=== PATIENT | male | born 1960 | race Caucasian/White ===

== ENCOUNTER 2016-04-18 14:12 | Emergency (ER) | payer MEDICARE, OTHER ==
--- NOTE | 2016-04-18 14:22 | ER Document Report ---
ED Medical Screen (RME) - General Stated Complaint: R WRIST PAIN Time seen by provider: 14:19 Mode of Arrival: Ambulatory Information source: Patient Notes: 55-year-old male presents to ED for pain in his right wrist. He states there is nothing wrong with it yesterday by evening it started swelling, pain increased, and now he cannot make a fist with of his right hand. I have greeted and performed a rapid initial assessment of this patient. A comprehensive ED assessment and evaluation of the patient, analysis of test results and completion of medical decision making process will be conducted by an additional ED providers. TRAVEL OUTSIDE OF THE [place] IN LAST 30 DAYS: No - Related Data Allergies/Adverse Reactions: ceftriaxone [From Rocephin] Allergy (Verified 04/18/16 14:19) Past Medical History - Past Medical History Cardiac Medical History: Denies: Hx Coronary Artery Disease, Hx Hypertension Renal/ Medical History: Reports: Hx Kidney Stones GI Medical History: Reports: Hx Diverticulitis Musculoskeltal Medical History: Reports Hx Arthritis, Reports Hx Musculoskeletal Deformity, Reports Hx Musculoskeletal Trauma Psychiatric Medical History: Reports: Hx Depression Traumatic Medical History: Reports: Hx Fractures Past Surgical History: Reports: Hx Bowel Surgery, Hx Cholecystectomy, Hx Neurologic Surgery - Neck 2, Hx Orthopedic Surgery - shoulder, knee, carpal tunnel, Hx Testicular Surgery - Wire for varicoceles, Hx Tonsillectomy, Other - Removed melanoma tumors from back and lymph nodes, ventral hernia repair an - Immunizations Hx Diphtheria, Pertussis, Tetanus Vaccination: Yes - unknown Physical Exam - Vital signs Vitals: Temp Pulse Resp BP Pulse Ox 97.9 F 59 L 16 156/91 H 97 04/18/16 14:18 04/18/16 14:18 04/18/16 14:18 04/18/16 14:18 04/18/16 14:18 Course - Vital Signs Vital signs: Temp Pulse Resp BP Pulse Ox 97.9 F 59 L 16 156/91 H 97 04/18/16 14:18 04/18/16 14:18 04/18/16 14:18 04/18/16 14:18 04/18/16 14:18
[2016-04-18] MEDS ORDERED: IBUPROFEN 800 MG TABLET PO ONE (14:23)
--- NOTE | 2016-04-18 15:13 | ER Document Report ---
ED Hand/Wrist Injury - General Chief Complaint: Wrist Pain Stated Complaint: R WRIST PAIN Time seen by provider: 15:06 Mode of Arrival: Ambulatory Notes: This is a [id number] 55-year-old male with a history of melanoma that presents today with right wrist pain. He stated that it. Started at 2200 last night woke him up out of sleep. Denies any prior injury. Pain is sharp constant 7 out of 10 pain worse with any movement. Patient states that when he makes a fist, he will feel moderate amount of pain to the index and middle fingers that extends to the PIP joint. He denies nausea vomiting fever or chills abdominal or chest pain. Last chemotherapy treatment was 11 months ago. He states that his melanoma is in remission. Primary care physician is Dr. Thao. TRAVEL OUTSIDE OF THE [place] IN LAST 30 DAYS: No - Related Data Allergies/Adverse Reactions: ceftriaxone [From Rocephin] Allergy (Verified 04/18/16 14:19) Past Medical History - General Information source: Patient - Social History Smoking Status: Never Smoker Chew tobacco use (# tins/day): No Frequency of alcohol use: None Drug Abuse: None Family History: Reviewed & Not Pertinent Patient has suicidal ideation: No Patient has homicidal ideation: No - Past Medical History Cardiac Medical History: Denies: Hx Coronary Artery Disease, Hx Hypertension Renal/ Medical History: Reports: Hx Kidney Stones. Denies: Hx Peritoneal Dialysis GI Medical History: Reports: Hx Diverticulitis Musculoskeltal Medical History: Reports Hx Arthritis, Reports Hx Musculoskeletal Deformity, Reports Hx Musculoskeletal Trauma Psychiatric Medical History: Reports: Hx Depression Traumatic Medical History: Reports: Hx Fractures Past Surgical History: Reports: Hx Bowel Surgery, Hx Cholecystectomy, Hx Neurologic Surgery - Neck 2, Hx Orthopedic Surgery - shoulder, knee, carpal tunnel, Hx Testicular Surgery - Wire for varicoceles, Hx Tonsillectomy, Other - Removed melanoma tumors from back and lymph nodes, ventral hernia repair an - Immunizations Hx Diphtheria, Pertussis, Tetanus Vaccination: Yes - unknown Review of Systems - Review of Systems Constitutional: denies: Chills, Fever EENT: No symptoms reported Cardiovascular: No symptoms reported. denies: Chest pain Respiratory: No symptoms reported Gastrointestinal: No symptoms reported Genitourinary: No symptoms reported Male Genitourinary: No symptoms reported Musculoskeletal: See HPI Skin: No symptoms reported Hematologic/Lymphatic: No symptoms reported Neurological/Psychological: No symptoms reported Physical Exam - Vital signs Vitals: Temp Pulse Resp BP Pulse Ox 97.9 F 59 L 16 156/91 H 97 04/18/16 14:18 04/18/16 14:18 04/18/16 14:18 04/18/16 14:18 04/18/16 14:18 - General General appearance: Appears well, Alert In distress: None - HEENT Head: Normocephalic, Atraumatic Eyes: Normal Conjunctiva: Normal - Respiratory Respiratory status: No respiratory distress Breath sounds: Normal. No: Rales, Rhonchi, Stridor, Wheezing - Cardiovascular Rhythm: Regular Heart sounds: Normal auscultation - Abdominal Inspection: Normal Distension: No distension Bowel sounds: Normal Tenderness: Nontender - Back Back: Normal. No: CVA tenderness - Extremities General upper extremity: Normal inspection, Tender - Tender right dorsal wrist radial side to moderate palpation. Patient can extend the wrist with pain and flex wrist. Limited ulnar deviation. Normal skin color no swelling noted to the wrist. General lower extremity: Normal inspection - Neurological Cognition: Normal. No: Confused - Psychological Associated symptoms: Normal affect, Normal mood - Skin Skin Temperature: Warm Skin Moisture: Dry Skin Color: Normal Course - Re-evaluation Re-evalutation: 04/18/16 15:58 Patient's right arm was splinted doing a volar wrist splint. I examined the splint after application. Patient has normal capillary refill normal sensation in all digits. Patient had normal radial pulse bilaterally. Patient's imaging results were shared with the patient. He was given multiple opportunities to ask questions. He was advised to follow-up with orthopedics and primary care physician. - Vital Signs Vital signs: Temp Pulse Resp BP Pulse Ox 98 F 64 16 148/88 H 98 04/18/16 15:59 04/18/16 15:59 04/18/16 15:59 04/18/16 15:59 04/18/16 15:59 Procedures - Immobilization Right Volar Wrist Time completed: 00:15 Pre-Proc Neuro Vasc Exam: Normal Immobilizer type: Volar splint Performed by: PCT Post-Proc Neuro Vasc Exam: Normal Alignment checked and good: Yes Discharge - Discharge Clinical Impression: Wrist pain, acute Qualifiers: Laterality: right Qualified Code(s): M25.531 - Pain in right wrist Condition: Stable Disposition: HOME, SELF-CARE Additional Instructions: Return to the emergency department if symptoms worsen such as loss of sensation , loss of pulses, increased swelling, loss of motor function, fever, redness, etc. Follow-up with primary care physician as soon as possible. Prescriptions: Meloxicam 7.5 mg PO ONCE PRN #5 tablet PRN Reason: Referrals: [facility] [Provider Group] - Follow up as needed
[2016-04-18 15:59] VITALS: BP 148/88
== END 2016-04-18 15:59 | disposition home or self-care (01) ==
LOC: ER 14:12
PROC: 2W3CX1Z Immobilization of Right Lower Arm using Splint (ICD-10-PCS; principal; 2016-04-18)
DX: M25.531 Pain in right wrist (principal)
CPT/HCPCS: 99283; 73110; 29125; A9270

== ENCOUNTER → 2016-04-24 | Outpatient (CLI) | payer MEDICARE, OTHER | LOC: RAD 07:48 | PROVIDERS: ATTEND Orthopaedic Surgery | DX: M25.531 Pain in right wrist (principal) ==

== ENCOUNTER → 2016-05-02 | Outpatient (CLI) | payer MEDICARE, OTHER | LOC: RAD 08:06 | PROVIDERS: ATTEND Urology | DX: N20.1 Calculus of ureter (principal) | CPT/HCPCS: 76770 ==

== ENCOUNTER → 2016-06-14 | Outpatient (CLI) | payer MEDICARE, OTHER | LOC: RAD 14:25 | PROVIDERS: ATTEND Internal Medicine Medical Oncology | DX: C79.9 Secondary malignant neoplasm of unspecified site (principal) | CPT/HCPCS: 78816; A9552 ==

== ENCOUNTER → 2016-07-03 | Outpatient (CLI) | payer MEDICARE, OTHER | LOC: RAD 06:59 | PROVIDERS: ATTEND Internal Medicine Medical Oncology | DX: R94.8 Abnormal results of function studies of other organs and systems (principal) | CPT/HCPCS: 73720; A9576 ==

== ENCOUNTER → 2016-11-20 | Outpatient (CLI) | payer MEDICARE ==
--- NOTE | 2016-11-20 09:32 | RADIOLOGY REPORT (SQ) ---
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 CONTRAST TYPE AND DOSE: contrast/concentration: Isovue 370.00 mg/ml; Total Contrast Delivered: 100.0 ml; Total Saline Delivered: 72.0 ml RENAL FUNCTION: Creatinine 1.2 TECHNIQUE: CT scan of the chest performed using helical scanning technique with dynamic intravenous contrast injection. Images reviewed with lung, soft tissue and bone windows. Reconstructed coronal a nd sagittal MPR images reviewed. All images stored on PACS. CT scan of the abdomen and pelvis performed with intravenous and with oral contrastusing helical scan ami technique with dynamic intravenous contrast injection. Images reviewed with lung, soft tissue a nd bone windows. Reconstructed coronal and sagittal MPR images reviewed. Delayed images for evaluat ion of the urinary system also acquired and evaluated. All images stored on PACS. All CT scanners at this facility use dose modulation, iterative reconstruction, and/or weight based d osing when appropriate to reduce radiation dose to as low as reasonably achievable (ALARA). [facility]: Dose Right [facility]: CareDose [facility]: Dose Right [facility]: Teradose 4D [facility]: [employer] RADIATION DOSE: Up-to-date CT equipment and radiation dose reduction techniques were employed. CTDIv ol: 12.7 - 16.7 mGy. DLP: 4297 mGy-cm. . LIMITATIONS: None. FINDINGS: CHEST: LUNGS AND PLEURA: No opacities, nodules, masses. No pneumothorax. No effusions. Benign calcified gr anuloma right posterior costophrenic sulcus axial image 109. HILAR AND MEDIASTINAL STRUCTURES: No identified masses or abnormal nodes. HEART AND VASCULAR STRUCTURES: No aneurysm or dissection. No central pulmonary emboli. No pericardi al effusion. HARDWARE: Left-sided permanent central line tip superior vena cava THYROID AND OTHER SOFT TISSUES: No masses. No adenopathy. BONES: No significant finding. OTHER: No other significant finding. ABDOMEN AND PELVIS: LIVER: Normal size. No masses. No dilated ducts. SPLEEN: Normal size. No focal lesions. PANCREAS: No masses. No significant calcifications. No adjacent inflammation or peripancreatic fluid collections. Pancreatic duct not dilated. GALLBLADDER: Surgically absent ADRENAL GLANDS: No significant masses or asymmetry. RIGHT KIDNEY AND URETER: No solid masses. No significant calcification. No hydronephrosis or hydroure ter. LEFT KIDNEY AND URETER: No solid masses. No significant calcification. No hydronephrosis or hydrouret er. AORTA AND VESSELS: No aneurysm. No dissection. Renal arteries, SMA, celiac without stenosis. RETROPERITONEUM: No retroperitoneal adenopathy, hemorrhage or masses. Bilateral gonadal vein emboliz ation coils unchanged BOWEL AND PERITONEAL CAVITY: No masses or inflammatory changes. No free fluid or peritoneal masses. Anastomotic dharmesh post partial sigmoid colectomy. APPENDIX: Normal. ABDOMINAL WALL: No masses. No hernias. BONES: No significant or acute findings. PELVIS: No other significant finding. IMPRESSION: No CT evidence of metastatic melanoma over the chest abdomen or pelvis TECHNICAL DOCUMENTATION: JOB ID: [id number] Quality ID # [id number]: Final reports with documentation of one or more dose reduction techniques (e.g., Au tomated exposure control, adjustment of the mA and/or kV according to patient size, use of iterative reconstruction technique) 2010 [employer]- All Rights Reserved
== END ==
LOC: RAD 07:23
PROVIDERS: ATTEND Internal Medicine Medical Oncology
DX: C79.9 Secondary malignant neoplasm of unspecified site (principal); C49.9 Malignant neoplasm of connective and soft tissue, unspecified; C43.59 Malignant melanoma of other part of trunk
CPT/HCPCS: 71260; 74177; 82565

== ENCOUNTER → 2017-01-23 | Outpatient (CLI) | payer MEDICARE, OTHER ==
--- NOTE | 2017-01-23 14:57 | RADIOLOGY REPORT (SQ) ---
EXAM DESCRIPTION: CT CHEST WITH COMPLETED DATE/TIME: 01/23/2017 2:22 pm REASON FOR STUDY: METASTATIC MELANOMA/CHEST PAIN OF UNCERTAIN ETIOLOGY R07.89 OTHER CHEST PAIN C79. 9 SECONDARY MALIGNANT NEOPLASM OF UNSPECIFIED SITE COMPARISON: 11/20/2016 TECHNIQUE: CT scan of the chest performed using helical scanning technique with dynamic intravenous contrast injection. Images reviewed with lung, soft tissue and bone windows. Reconstructed coronal and sagittal MPR images reviewed. All images stored on PACS. All CT scanners at this facility use dose modulation, iterative reconstruction, and/or weight based d osing when appropriate to reduce radiation dose to as low as reasonably achievable (ALARA). [facility]: Dose Right [facility]: CareDose [facility]: Dose Right [facility]: Teradose 4D [facility]: [employer] CONTRAST TYPE AND DOSE: contrast/concentration: Isovue 370.00 mg/ml; Total Contrast Delivered: 80.0 ml; Total Saline Delivered: 55.0 ml RENAL FUNCTION: Creatinine 1.2 BUN 23 RADIATION DOSE: Up-to-date CT equipment and radiation dose reduction techniques were employed. CTDIv ol: 16.0 mGy. DLP: 591 mGy-cm. . LIMITATIONS: None. FINDINGS: LUNGS AND PLEURA: There is small calcified granuloma in the right posterior costophrenic s ulcus on image 97. No pulmonary nodules are seen otherwise. There is no effusion. There is no infi ltrate. HILAR AND MEDIASTINAL STRUCTURES: No identified masses or abnormal nodes. HEART AND VASCULAR STRUCTURES: No aneurysm or dissection. No central pulmonary emboli. No pericardi al effusion. HARDWARE: None in the chest. UPPER ABDOMEN: The liver is somewhat low in density. THYROID AND OTHER SOFT TISSUES: No masses. No adenopathy. BONES: No osseous lesions are seen. OTHER: No other significant finding. IMPRESSION: There is no evidence of pulmonary/thoracic metastases. No acute disease is seen in the chest. There is appearance of fatty infiltration of liver. TECHNICAL DOCUMENTATION: JOB ID: [id number] Quality ID # [id number]: Final reports with documentation of one or more dose reduction techniques (e.g., Au tomated exposure control, adjustment of the mA and/or kV according to patient size, use of iterative reconstruction technique) 2010 [employer]- All Rights Reserved
== END ==
LOC: RAD 13:25
PROVIDERS: ATTEND Internal Medicine Medical Oncology
DX: C79.9 Secondary malignant neoplasm of unspecified site (principal); R07.89 Other chest pain
CPT/HCPCS: 71260

== ENCOUNTER → 2017-02-13 | Outpatient (CLI) | payer MEDICARE, OTHER ==
--- NOTE | 2017-02-13 10:41 | RADIOLOGY REPORT (SQ) ---
EXAM DESCRIPTION: MRI THORACIC SPINE COMBO COMPLETED DATE/TIME: 02/13/2017 10:13 am REASON FOR STUDY: DORSALGIA (M54.9) M54.9 DORSALGIA, UNSPECIFIED COMPARISON: CT chest 01/23/2017, 11/20/2016 PET-CT 06/14/2016 TECHNIQUE: Sagittal and Axial imaging includes T1, T2, STIR and gradient echo sequences. T1 post ga dolinium sequences. CONTRAST TYPE AND DOSE: 20 mL Multihance. RENAL FUNCTION: GFR > 60. LIMITATIONS: None. FINDINGS: LOCALIZER: No worrisome findings. ALIGNMENT: Normal. VERTEBRAE: Intact. No compression deformities. BONE MARROW: Normal. No marrow replacement or reactive changes. No abnormal marrow enhancement. HARDWARE: None in the spine. CORD: Normal in size and signal intensity. SOFT TISSUES: No soft tissue masses. THORACIC DISCS T1-T12: No significant spinal stenosis or exit foraminal stenosis. There is diffuse d ecreased T2 weighted intervertebral disc signal, with mild diffuse disc space loss of height. Mild m ultilevel facet arthropathy. LOWER CERVICAL: Incompletely imaged. No significant spinal stenosis or exit foraminal stenosis. UPPER LUMBAR: Incompletely imaged. No significant spinal stenosis or exit foraminal stenosis. ENHANCEMENT: No abnormal thoracic cord or thoracic nerve root enhancement. No abnormal vertebral bod y enhancement. OTHER: No other significant finding. IMPRESSION: No thoracic compression deformity. No abnormal marrow signal or enhancement. No abnormal thoracic cord or thoracic nerve root enhanceme nt. Mild multilevel disc space loss of height and mild diffuse facet arthropathy in the thoracic spine TECHNICAL DOCUMENTATION: JOB ID: [id number] [employer]- All Rights Reserved
== END ==
LOC: RAD 07:24
PROVIDERS: ATTEND Internal Medicine Medical Oncology
DX: M54.9 Dorsalgia, unspecified (principal)
CPT/HCPCS: 82565; 72157; A9577

== ENCOUNTER → 2017-02-18 | Outpatient (CLI) | payer MEDICARE, OTHER ==
--- NOTE | 2017-02-19 09:43 | RADIOLOGY REPORT (SQ) ---
EXAM DESCRIPTION: PET CT whole body COMPLETED DATE/TIME: 02/18/2017 8:59 pm REASON FOR STUDY: MELANOMA C79.9 SECONDARY MALIGNANT NEOPLASM OF UNSPECIFIED SITE COMPARISON: Prior PET-CT exams 06/14/2016, 01/28/2016, 07/09/2015, 03/26/2015 CT chest 01/23/2017 CT chest abdomen pelvis 11/20/2016 Set bold go RADIONUCLIDE AND DOSE: 11.3 mCi F18 FDG The route of agent administration: Intravenous FASTING BLOOD SUGAR: 101 mg/dl CONTRAST TYPE AND DOSE: No CT contrast given. TECHNIQUE: Blood glucose level was verified. Above dose of FDG was injected intravenously. 2-D seg mented attenuation correction images were obtained of the whole-body. Noncontrast CT images were obt ained for attenuation correction and fusion with emission images. CT images were performed without o ral or intravenous contrast and are not sensitive for parenchymal lesions. A series of overlapping e mission PET images were obtained. Images reviewed and manipulated at independent work station by the radiologist. Images stored on PACS. LIMITATIONS: None. FINDINGS: HEAD AND NECK: No areas of abnormal metabolic activity in the soft tissues of the head and neck. CHEST: No areas of abnormal metabolic activity in the chest. ABDOMEN AND PELVIS: No areas of abnormal metabolic activity in the abdomen or pelvis. Expected physi ologic activity is present in the genitourinary system and bowel. LOWER EXTREMITIES: No areas of abnormal metabolic activity in the soft tissues of the lower extremiti es. BONES: No abnormal metabolic activity in the visualized skeleton. ADDITIONAL CT FINDINGS: Left central line tip superior vena cava. Post cholecystectomy and partial s igmoid colectomy. Retroperitoneal embolization coils from gonadal vein embolization. OTHER: Liver background activity 1.9 SUV. Blood pool background activity 1.8 SUV. IMPRESSION: No hypermetabolic lesions worrisome for recurrent or metastatic melanoma, whole-body PET -CT TECHNICAL DOCUMENTATION: JOB ID: [id number] [employer]- All Rights Reserved
== END ==
LOC: WI 16:36
PROVIDERS: ATTEND Internal Medicine Medical Oncology
DX: C79.9 Secondary malignant neoplasm of unspecified site (principal)
CPT/HCPCS: 78815; A9552

== ENCOUNTER 2017-04-28 18:13 | Emergency (ER) | payer MEDICARE, OTHER ==
[2017-04-28] MEDS ORDERED: NORMAL SALINE 1000 ML 1,000 ML IV ONE (19:33)
[2017-04-28] MEDS ORDERED: ONDANSETRON HCL INJ/PF 4 MG/2 ML SDV IV ONE (19:33)
[2017-04-28] MEDS ORDERED: KETOROLAC TROMETHAMINE INJ/PF 30 MG/1 ML SDV IV ONE (19:33)
[2017-04-28 19:39] LABS: AMORPHOUS SEDIMENT,URINE TRACE /HPF; APPEARANCE,URINE SLIGHTLY-CLOUDY; BILIRUBIN,URINE NEGATIVE (NEGATIVE); COLOR,URINE YELLOW; GLUCOSE, URINE NEGATIVE (NEGATIVE); KETONES,URINE NEGATIVE (NEGATIVE); LEUKOCYTE ESTERASE,URINE NEGATIVE (NEGATIVE); NITRITE,URINE NEGATIVE (NEGATIVE); PROTEIN,URINE NEGATIVE (NEGATIVE); UROBILINOGEN,URINE NEGATIVE mg/dL (<2.0)
--- NOTE | 2017-04-28 19:43 | ER Document Report ---
ED GI/ - General Chief Complaint: Back Pain Stated Complaint: BACK PAIN Time Seen by Provider: 04/28/17 19:20 Mode of Arrival: Ambulatory Information source: Patient Notes: 56-year-old male presents to ED for complaint of right flank pain TRAVEL OUTSIDE OF THE U.S. IN LAST 30 DAYS: No - HPI Patient complains to provider of: Flank pain, Vomiting Timing/Duration: Gradual, Worse Quality of pain: Sharp, Throbbing Severity at maximum: Severe Severity in ED: Severe Pain Level: 5 Location: Right flank Associated symptoms: Nausea, Vomiting, Other - right flank pain Exacerbated by: Movement, Walking Relieved by: Denies Similar symptoms previously: Yes Recently seen / treated by doctor: No - Related Data Allergies/Adverse Reactions: ceftriaxone [From Rocephin] Allergy (Verified 04/28/17 18:17) Past Medical History - General Information source: Patient - Social History Smoking Status: Former Smoker Cigarette use (# per day): No Chew tobacco use (# tins/day): No Smoking Education Provided: No Frequency of alcohol use: Occasional Drug Abuse: None Occupation: disabled Lives with: Family Family History: Reviewed & Not Pertinent, Arthritis Patient has suicidal ideation: No Patient has homicidal ideation: No - Past Medical History Cardiac Medical History: Reports: None Pulmonary Medical History: Reports: None EENT Medical History: Reports: None Neurological Medical History: Reports: None Endocrine Medical History: Reports: None Renal/ Medical History: Reports: Hx Kidney Stones Malignancy Medical History: Reports Other - Melanoma GI Medical History: Reports: Hx Diverticulitis, Hx Gastroesophageal Reflux Disease, Hx Colonoscopy Musculoskeltal Medical History: Reports Hx Arthritis, Reports Hx Musculoskeletal Deformity, Reports Hx Musculoskeletal Trauma Skin Medical History: Reports None Psychiatric Medical History: Reports: Hx Anxiety, Hx Depression Traumatic Medical History: Reports: Hx Fractures, Hx Traumatic Brain Injury Infectious Medical History: Reports: None Past Surgical History: Reports: Hx Adenoidectomy, Hx Bowel Surgery, Hx Cholecystectomy, Hx Neurologic Surgery - Neck 2, Hx Oral Surgery - Dental surgery, Hx Orthopedic Surgery - shoulder, knee, carpal tunnel, Hx Testicular Surgery - Wire for varicoceles, Hx Tonsillectomy, Other - Removed melanoma tumors from back and lymph nodes, ventral hernia repair an - Immunizations Hx Diphtheria, Pertussis, Tetanus Vaccination: Yes - unknown Review of Systems - Review of Systems Constitutional: No symptoms reported EENT: No symptoms reported Cardiovascular: No symptoms reported Respiratory: No symptoms reported Gastrointestinal: Nausea, Vomiting Genitourinary: Flank pain Male Genitourinary: No symptoms reported Musculoskeletal: No symptoms reported Skin: No symptoms reported Hematologic/Lymphatic: No symptoms reported Neurological/Psychological: No symptoms reported -: Yes All other systems reviewed and negative Physical Exam - Vital signs Vitals: Temp Pulse Resp BP Pulse Ox 98.2 F 64 16 184/91 H 100 04/28/17 18:18 04/28/17 18:18 04/28/17 18:18 04/28/17 18:18 04/28/17 18:18 Interpretation: Normal - General General appearance: Appears well, Alert - HEENT Head: Normocephalic, Atraumatic Eyes: Normal Pupils: PERRL - Respiratory Respiratory status: No respiratory distress Chest status: Nontender Breath sounds: Normal Chest palpation: Normal - Cardiovascular Rhythm: Regular Heart sounds: Normal auscultation Murmur: No - Abdominal Inspection: Normal Distension: No distension Bowel sounds: Normal Tenderness: Tender - Right flank Organomegaly: No organomegaly - Back Back: Normal, Tender, CVA tenderness - Right, Scars - Right back. No: Deformity /step-off, Vertebra tenderness, Scoliosis, Wounds - Extremities General upper extremity: Normal inspection, Nontender, Normal color, Normal ROM , Normal temperature General lower extremity: Normal inspection, Nontender, Normal color, Normal ROM , Normal temperature, Normal weight bearing. No: Delores's sign - Neurological Neuro grossly intact: Yes Cognition: Normal Orientation: AAOx4 Hema Coma Scale Eye Opening: Spontaneous Glen Coma Scale Verbal: Oriented Hema Coma Scale Motor: Obeys Commands Glen Coma Scale Total: 15 Speech: Normal Motor strength normal: LUE, RUE, LLE, RLE Sensory: Normal - Psychological Associated symptoms: Normal affect, Normal mood - Skin Skin Temperature: Warm Skin Moisture: Dry Skin Color: Normal Course - Re-evaluation Re-evalutation: 04/29/17 03:11 Patient was treated with Toradol Zofran IV fluids and Flomax for his kidney stone. His CT showed a 2 mm kidney stone. Urine was positive for blood. Patient was discharged home with a Biba dispense pack for his pain as well as a prescription for the Zofran and Flomax. Patient to follow-up with his primary doctor and a urologist if he continues to have kidney stones or if the stone does not pass. - Vital Signs Vital signs: Temp Pulse Resp BP Pulse Ox 98.3 F 62 16 140/76 H 100 04/28/17 22:00 04/28/17 22:00 04/28/17 22:00 04/28/17 22:00 04/28/17 22:00 - Laboratory Laboratory results interpreted by me: 04/28/17 19:10 Urine Blood LARGE H - Diagnostic Test Radiology reviewed: Image reviewed, Reports reviewed Discharge - Discharge Clinical Impression: Right ureteral stone Condition: Stable Disposition: HOME, SELF-CARE Additional Instructions: KIDNEY STONE: You are passing or have passed a kidney stone. These stones are usually due to increased calcium or uric acid concentrations in your urine. Stones within the kidney itself are not painful. The pain occurs as the stone leaves the kidney to pass down the long tube, called the ureter, leading to the bladder. If the stone is small, it will usually pass by itself. Most patients can pass the stone at home. You will usually receive medications for pain, nausea or vomiting, and sometimes a medication to assist in passing the kidney stone. However, if the pain is very severe or if vomiting prevents you from taking oral pain medications, you may need to return for further treatment. Drink three or four quarts of fluids per day. You will be given pain medication (if needed) and urine strainers. Strain all your urine to see if the stone passes. If your doctor has asked you to bring the stone in for analysis, return with the stone once it has passed. Return if pain or vomiting become severe, if you develop a high fever, if you are unable to pass your urine, or if other unusual symptoms occur. TORADOL INJECTION: You have been given an injection of ketorolac tromethamine (Toradol). This is an excellent, safe drug for pain control. It also has potent antiinflammatory action. You should have significant pain relief within about one hour. Toradol is not addicting and is non-sedating. It does not interfere with driving or work. Call or return if you develop itching, hives, shortness of breath, or rash. ANTINAUSEA MEDICATION: You have been given a medication to suppress nausea and vomiting. This type of medication can be given as a shot, pill, or suppository. It will usually last for many hours. Pills and shots usually last six to eight hours, suppositories last about 12 hours. For the typical illness, only one or two doses of the medication may be necessary. Mild lightheadedness may occur. This type of medicine can cause drowsiness. Do not drive or operate dangerous machinery while under its influence. Do not mix with alcohol. See your doctor at once if you have muscle spasms or tightness, or uncontrollable motions (particularly of the neck, mouth, or jaw). Persistent vomiting or severe lightheadedness should also be evaluated by the physician. ORAL NARCOTIC MEDICATION: You have been given a prescription for pain control. This medication is a narcotic. It's best taken with food, as nausea can result if taken on an empty stomach. Don't operate machinery or drive within six hours of taking this medication. Do not combine this medicine with alcohol, or with any medication which can cause sedation (such as cold tablets or sleeping pills) unless you get permission from the physician. Narcotics tend to cause constipation. If possible, drink plenty of fluids and eat a diet high in fiber and fruits. Please be aware that prescription narcotics also have the potential for abuse. People become addicted to these medications because of the general sense of wellbeing that they induce. This feeling along with a significant reduction in tension, anxiety, and aggression provides a stimulating seductive quality to these drugs. Once your pain is under control, we encourage you to discard your unused narcotics. FLOMAX (tamsulosin): Flomax is a medicine that shrinks the prostate gland. It helps relieve symptoms of benign prostatic hypertrophy, such as frequent urination, weak stream, and inadequate emptying. It has been shown to dilate the ureter (tube leading from the kidney to the bladder) and help in passing kidney stones Flomax usually causes no side effects. You may notice slight tiredness and dizziness for a few days. Some patients develop nasal congestion. Rarely, impotence can occur. If the symptoms are bothersome and don't improve with continued use, call your doctor. Contact your doctor or return if you have fainting spells, severe weakness or dizziness, shortness of breath, or rash. FOLLOW-UP CARE: If you have been referred to a physician for follow-up care, call the physician s office for an appointment as you were instructed or within the next two days. If you experience worsening or a significant change in your symptoms, notify the physician immediately or return to the Emergency Department at any time for re-evaluation. Prescriptions: Ondansetron [Zofran Odt 4 mg Tablet] 1 tab PO Q6H #15 tab.rapdis Tamsulosin HCl [Flomax] 0.4 mg PO DAILY #14 cap.er.24h Forms: Elevated Blood Pressure, Return to Work Referrals: REBECCA WASHINGTON DO [Primary Care Provider] - Follow up tomorrow
--- NOTE | 2017-04-28 20:56 | RADIOLOGY REPORT (SQ) ---
EXAM DESCRIPTION: CT LTD RENAL STONE PROTOCOL ON COMPLETED DATE/TIME: 04/28/2017 8:20 pm REASON FOR STUDY: left flank pain NV hx kidney stone and melanoma COMPARISON: PET-CT 02/18/2017 CT abdomen pelvis 11/20/2016 TECHNIQUE: CT scan of the abdomen and pelvis performed without intravenous or oral contrast. Images reviewed with lung, soft tissue, and bone windows. Reconstructed coronal and sagittal MPR images revi ewed. All images stored on PACS. All CT scanners at this facility use dose modulation, iterative reconstruction, and/or weight based d osing when appropriate to reduce radiation dose to as low as reasonably achievable (ALARA). [facility]: Dose Right [facility]: CareDose [facility]: Dose Right [facility]: Teradose 4D [facility]: Smart [employer] RADIATION DOSE: CT Rad equipment meets quality standard of care and radiation dose reduction techniq ues were employed. CTDIvol: 17.8 mGy. DLP: 977 mGy-cm.mGy. LIMITATIONS: None. FINDINGS: Moderate right hydronephrosis and hydroureter is present down to the ureterovesical juncti on, where a 2 mm calculus is present best shown on axial image 79. Moderate right hydronephrosis and hydroureter. No other right ureteral or renal stones. No renal cysts or masses. LOWER CHEST: Calcified granuloma right posterior lung base. NON-CONTRASTED LIVER, SPLEEN, ADRENALS: Fatty liver. Spleen, adrenal glands unremarkable. PANCREAS: No masses. No peripancreatic inflammatory changes. GALLBLADDER: Surgically absent RIGHT KIDNEY AND URETER: As above post partial sigmoid colectomy LEFT KIDNEY AND URETER: No suspicious masses. Assessment limited by lack of IV contrast. No signifi cant calcifications. No hydronephrosis or hydroureter. AORTA AND RETROPERITONEUM: No aneurysm. No retroperitoneal masses or adenopathy. Old bilateral retro peritoneal embolization coils along the gonadal veins BOWEL AND PERITONEAL CAVITY: No obvious masses or inflammatory changes. No free fluid. APPENDIX: Normal. PELVIS, BLADDER, AND ABDOMINAL WALL:No abnormal masses. No free fluid. Bladder normal. BONES: No significant findings. OTHER: No other significant finding. IMPRESSION: 2 mm calculus in the distal right ureter at the ureterovesical junction causing moderate right hydronephrosis and hydroureter COMMENT: Quality ID # [id number]: Final reports with documentation of one or more dose reduction techniques (e.g., Automated exposure control, adjustment of the mA and/or kV according to patient size, use of iterative reconstruction technique) TECHNICAL DOCUMENTATION: JOB ID: [id number] [employer]- All Rights Reserved
[2017-04-28] MEDS ORDERED: TAMSULOSIN HCL 0.4 MG CAP.SR.24H PO ONE (21:18)
[2017-04-28] MEDS ORDERED: HYDROCODONE/ACETAMINOPHEN 5-325 MG (6 TAB/ER DISP) PO PRN (21:39)
[2017-04-28 22:01] VITALS: BP 140/76
== END 2017-04-28 22:01 | disposition home or self-care (01) ==
LOC: ER 18:13
DX: N20.1 Calculus of ureter (principal); M54.9 Dorsalgia, unspecified; R10.9 Unspecified abdominal pain; R11.2 Nausea with vomiting, unspecified; Z87.891 Personal history of nicotine dependence
CPT/HCPCS: 99284; 96361; 96374; 96375; 81001; 76380; J1885; A9270 ×2; J2405; J7030

== ENCOUNTER 2017-05-31 16:32 | Emergency (ER) | payer MEDICARE, OTHER ==
--- NOTE | 2017-05-31 17:15 | ER Document Report ---
HPI - HPI Patient complains to provider of: left testicular pain Pain Level: 4 Context: Patient is a 57-year-old male presents emergency department complaining of dull ache in his left testicle that started yesterday. 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 He states that this was done more than 5 years ago and is living in [place]. He denies any issues in his left testicle. He denies any burning with urination, penile discharge. He sexually active with his only. Otherwise he denies any redness, drainage from the scrotum, significant tenderness. He does admit to history of epididymitis. History of kidney stones. Was seen here in March and diagnosed with a right 2 mm stone. Follows with the urologist at [facility]. - REPRODUCTIVE Reproductive: DENIES: : Past Medical History - Social History Smoking Status: Smoker,Current Status Unk Family History: Reviewed & Not Pertinent, Arthritis - Past Medical History Cardiac Medical History: Denies: Hx Coronary Artery Disease, Hx Hypertension Renal/ Medical History: Reports: Hx Kidney Stones. Denies: Hx Peritoneal Dialysis GI Medical History: Reports: Hx Diverticulitis, Hx Gastroesophageal Reflux Disease, Hx Colonoscopy Musculoskeltal Medical History: Reports Hx Arthritis, Reports Hx Musculoskeletal Deformity, Reports Hx Musculoskeletal Trauma Psychiatric Medical History: Reports: Hx Anxiety, Hx Depression Traumatic Medical History: Reports: Hx Fractures, Hx Traumatic Brain Injury Past Surgical History: Reports: Hx Adenoidectomy, Hx Bowel Surgery, Hx Cholecystectomy, Hx Neurologic Surgery - Neck 2, Hx Oral Surgery - Dental surgery, Hx Orthopedic Surgery - shoulder, knee, carpal tunnel, Hx Testicular Surgery - Wire for varicoceles, Hx Tonsillectomy, Other - Removed melanoma tumors from back and lymph nodes, ventral hernia repair an - Immunizations Hx Diphtheria, Pertussis, Tetanus Vaccination: Yes - unknown Vertical Provider Document - CONSTITUTIONAL Agree With Documented VS: Yes Notes: PHYSICAL EXAM GENERAL: Alert, interacts well. ABDOMEN: Soft, nondistended, nontender. No guarding, rebound, or rigidity.. Bowel sounds present in all 4 quadrants. BACK:No CVA tenderness, Paralumbar muscular tenderness. Male : Normal inspection without any evidence of cyanosis, edema cremasteric reflex intact bilaterally.. Nontender to palpation, bilateral epididymis without tenderness, swelling. NEUROLOGICAL: Alert and oriented x4. Normal speech. PSYCH: Normal affect, normal mood. SKIN: Warm, dry, normal turgor. No rashes or lesions noted. - INFECTION CONTROL TRAVEL OUTSIDE OF THE U.S. IN LAST 30 DAYS: No - RESPIRATORY O2 Sat by Pulse Oximetry: 99 Course - Re-evaluation Re-evalutation: 05/31/17 18:48 Patient is a 57-year-old male who is hemodynamically stable, no acute distress and afebrile. Scrotal ultrasound without evidence of epididymitis, torsion. Shows mild dilation of 2 vessels of the left testicle which are not diagnostic for Varicocele. Urinalysis with evidence of mild hematuria but given patient's recent diagnosis of kidney stone, could be related to recent passing. Discussed with patient at this time there is no need for further imaging, laboratory studies. Will discharge patient home with instruction to follow-up with his urologist on Friday. Otherwise discussed strict return precautions and patient is stable for discharge home. - Vital Signs Vital signs: Temp Pulse Resp BP Pulse Ox 98.5 F 61 20 159/89 H 99 05/31/17 16:37 05/31/17 16:37 05/31/17 16:37 05/31/17 16:37 05/31/17 16:37 - Diagnostic Test Radiology reviewed: Reports reviewed Discharge - Discharge Clinical Impression: Testicular/scrotal pain, Pre-hypertension Condition: Good Disposition: HOME, SELF-CARE Instructions: Testicular Pain ([facility]) Additional Instructions: Please call your urologist on Friday to set up a follow-up appointment regarding your visit today. Forms: Elevated Blood Pressure Referrals: REBECCA WASHINGTON DO [Primary Care Provider] - Follow up in 1 week
[2017-05-31 18:18] LABS: APPEARANCE,URINE CLEAR; BILIRUBIN,URINE NEGATIVE (NEGATIVE); COLOR,URINE YELLOW; GLUCOSE, URINE NEGATIVE (NEGATIVE); KETONES,URINE NEGATIVE (NEGATIVE); LEUKOCYTE ESTERASE,URINE NEGATIVE (NEGATIVE); NITRITE,URINE NEGATIVE (NEGATIVE); PROTEIN,URINE NEGATIVE (NEGATIVE); URINE SPECIFIC GRAVITY 1.019; UROBILINOGEN,URINE NEGATIVE mg/dL (<2.0)
--- NOTE | 2017-05-31 18:33 | RADIOLOGY REPORT (SQ) ---
EXAM DESCRIPTION: U/S SCROTUM W/DOPPLER COMPLETED DATE/TIME: 05/31/2017 6:18 pm REASON FOR STUDY: left testicular pain COMPARISON: None. TECHNIQUE: Static and realtime troy scale imaging of the scrotum and testes. Selected color Doppler and spectral images recorded to document blood flow. LIMITATIONS: None. FINDINGS: RIGHT: TESTICLE: Normal size. Normal echotexture. Normal blood flow. No mass. EPIDIDYMIS: Normal. HYDROCELE OR VARICOCELE: 2 prominent vessels are demonstrated, not meeting minimal criteria for diagn osis of varicocele. HERNIA OR EXTRA-TESTICULAR MASS: No. OTHER: No other significant finding. LEFT: TESTICLE: Normal size. Normal echotexture. Normal blood flow. No mass. EPIDIDYMIS: Normal. HYDROCELE OR VARICOCELE: A single prominent vessel is demonstrated, not meeting minimal criteria for diagnosis of varicocele. HERNIA OR EXTRA-TESTICULAR MASS: No. OTHER: No other significant finding. IMPRESSION: Essentially normal sonographic appearance of the scrotal contents. Few mildly prominent vessels are demonstrated, but these do not meet imaging criteria for diagnosis with varicocele. TECHNICAL DOCUMENTATION: JOB ID: [id number]- All Rights Reserved Reading location - IP/workstation name: [email or web address]
[2017-05-31 19:06] VITALS: BP 145/91
[2017-05-31 20:11] LABS: CHLAM PCR NOT DETECTED (NOT DETECT); GON PCR NOT DETECTED (NOT DETECT)
== END 2017-05-31 19:06 | disposition home or self-care (01) ==
LOC: ER 16:32
DX: N50.812 Left testicular pain (principal); R31.9 Hematuria, unspecified; R03.0 Elevated blood-pressure reading, without diagnosis of hypertension; Z87.442 Personal history of urinary calculi; Z87.438 Personal history of other diseases of male genital organs; Z85.820 Personal history of malignant melanoma of skin
CPT/HCPCS: 76870; 81001; 87491; 87591; 93976; 99284

== ENCOUNTER 2017-07-31 18:03 | Emergency (ER) | payer MEDICARE, OTHER ==
--- NOTE | 2017-07-31 18:57 | ER Document Report ---
ED Medical Screen (RME) - General Chief Complaint: Neck Pain >24hrs old Stated Complaint: NECK PAIN Time Seen by Provider: 07/31/17 18:41 Notes: RAPID MEDICAL EVALUATION DISCLOSURE I have seen this patient as part of a Rapid Medical Evaluation and, if applicable, placed any initially appropriate orders. The patient will be seen and fully evaluated, including a full history and physical exam, by a provider ( in Main ED or Fast Track) when a room becomes available. 57-year-old male here with complaints of neck pain and right as well as left arm numbness tingling weakness ongoing for the past 1 month. He states that he has been following with his outpatient physician who ordered an x-ray that showed "a loose screw that broke off" in his neck from a prior neck surgery by Dr Telles in [place]. Patient is here today because he would like to be evaluated and is requesting a neck collar. EXAM Strength 5/5 left upper extremity with intact sensation Strength 4+/5 right upper extremity with intact sensation (states this is unchanged over the past 1 month) Minimal tenderness palpation of the midline spine and paraspinal musculature NOTE Discussed with patient we cannot obtain nonurgent MRI in the ED and that CT is only other available option He is requesting CT imaging however have discussed a likely will not change consultant and will still need outpatient eval TRAVEL OUTSIDE OF THE [place].S. IN LAST 30 DAYS: No - Related Data Allergies/Adverse Reactions: ceftriaxone [From Rocephin] Allergy (Verified 07/31/17 18:07) Past Medical History - Social History Chew tobacco use (# tins/day): No Frequency of alcohol use: Rare Drug Abuse: None - Past Medical History Cardiac Medical History: Denies: Hx Coronary Artery Disease, Hx Hypertension Renal/ Medical History: Reports: Hx Kidney Stones. Denies: Hx Peritoneal Dialysis GI Medical History: Reports: Hx Diverticulitis, Hx Gastroesophageal Reflux Disease, Hx Colonoscopy Musculoskeltal Medical History: Reports Hx Arthritis, Reports Hx Musculoskeletal Deformity, Reports Hx Musculoskeletal Trauma Psychiatric Medical History: Reports: Hx Anxiety, Hx Depression Traumatic Medical History: Reports: Hx Fractures, Hx Traumatic Brain Injury Past Surgical History: Reports: Hx Adenoidectomy, Hx Bowel Surgery, Hx Cholecystectomy, Hx Neurologic Surgery - Neck 2, Hx Oral Surgery - Dental surgery, Hx Orthopedic Surgery - shoulder, knee, carpal tunnel, Hx Testicular Surgery - Wire for varicoceles, Hx Tonsillectomy, Other - Removed melanoma tumors from back and lymph nodes, ventral hernia repair an - Immunizations Hx Diphtheria, Pertussis, Tetanus Vaccination: Yes - unknown Physical Exam - Vital signs Vitals: Temp Pulse Resp BP Pulse Ox 97.6 F 65 18 170/92 H 98 07/31/17 18:14 07/31/17 18:14 07/31/17 18:14 07/31/17 18:14 07/31/17 18:14 Course - Vital Signs Vital signs: Temp Pulse Resp BP Pulse Ox 97.6 F 65 18 170/92 H 98 07/31/17 18:14 07/31/17 18:14 07/31/17 18:14 07/31/17 18:14 07/31/17 18:14
--- NOTE | 2017-07-31 19:18 | RADIOLOGY REPORT (SQ) ---
EXAM DESCRIPTION: CT CERVICAL SPINE WITHOUT COMPLETED DATE/TIME: 07/31/2017 7:02 pm REASON FOR STUDY: reports screw loose in neck COMPARISON: None. TECHNIQUE: Axial images acquired through the cervical spine without intravenous contrast. Images re viewed with lung, soft tissue and bone windows. Reconstructed coronal and sagittal MPR images review ed. Images stored on PACS. All CT scanners at this facility use dose modulation, iterative reconstruction, and/or weight based d osing when appropriate to reduce radiation dose to as low as reasonably achievable (ALARA). [facility]: Dose Right [facility]: CareDose [facility]: Dose Right [facility]: Teradose 4D [facility]: Smart [employer] RADIATION DOSE: CT Rad equipment meets quality standard of care and radiation dose reduction techniq ues were employed. CTDIvol: 22.0 mGy. DLP: 567 mGy-cm. mGy. LIMITATIONS: None. FINDINGS: ALIGNMENT: Anatomic. MINERALIZATION: Normal. VERTEBRAL BODIES: No fractures or dislocation. DISCS: The implant is present C5-6. FACETS, LATERAL MASSES, POSTERIOR ELEMENTS: No fractures. No dislocation. No acute findings. HARDWARE: There is an anterior plate at C5-6 secured by screws extending into the vertebral bodies. The hardware appears to be intact. VISUALIZED RIBS: No fractures. LUNG APICES AND SOFT TISSUES: No significant or acute findings. OTHER: No other significant finding. IMPRESSION: Prior ACDF at C5-6 with no acute imaging findings. TECHNICAL DOCUMENTATION: JOB ID: [id number] Quality ID # [id number]: Final reports with documentation of one or more dose reduction techniques (e.g., Au tomated exposure control, adjustment of the mA and/or kV according to patient size, use of iterative reconstruction technique) 2010 [employer]- All Rights Reserved Reading location - IP/workstation name: [email or web address]
--- NOTE | 2017-07-31 20:30 | ER Document Report ---
ED General - General Chief Complaint: Neck Pain >24hrs old Stated Complaint: NECK PAIN Time Seen by Provider: 07/31/17 18:41 Mode of Arrival: Ambulatory Information source: Patient, Dr. Office Notes: 57-year-old male previous cervical surgery presents with concerns of a screw fracturing in his neck. Patient denies any pain notes he went to his primary care physician and performed an x-ray and was sent in for further evaluation. Patient has no neurological deficits he denies any complaints at this time denies any pain or weakness TRAVEL OUTSIDE OF THE [place] IN LAST 30 DAYS: No - HPI Onset: Just prior to arrival Onset/Duration: Sudden Quality of pain: No pain Severity: Mild Pain Level: Denies Associated symptoms: Other Exacerbated by: Movement Relieved by: Denies Similar symptoms previously: Yes Recently seen / treated by doctor: Yes - Related Data Allergies/Adverse Reactions: ceftriaxone [From Rocephin] Allergy (Verified 07/31/17 18:07) Past Medical History - Social History Smoking Status: Former Smoker Cigarette use (# per day): No Chew tobacco use (# tins/day): No Smoking Education Provided: No Frequency of alcohol use: Rare Drug Abuse: None Family History: Reviewed & Not Pertinent, Arthritis Patient has suicidal ideation: No Patient has homicidal ideation: No - Past Medical History Cardiac Medical History: Denies: Hx Coronary Artery Disease, Hx Hypertension Renal/ Medical History: Reports: Hx Kidney Stones. Denies: Hx Peritoneal Dialysis GI Medical History: Reports: Hx Diverticulitis, Hx Gastroesophageal Reflux Disease, Hx Colonoscopy Musculoskeltal Medical History: Reports Hx Arthritis, Reports Hx Musculoskeletal Deformity, Reports Hx Musculoskeletal Trauma Psychiatric Medical History: Reports: Hx Anxiety, Hx Depression Traumatic Medical History: Reports: Hx Fractures, Hx Traumatic Brain Injury Past Surgical History: Reports: Hx Adenoidectomy, Hx Bowel Surgery, Hx Cholecystectomy, Hx Neurologic Surgery - Neck 2, Hx Oral Surgery - Dental surgery, Hx Orthopedic Surgery - shoulder, knee, carpal tunnel, Hx Testicular Surgery - Wire for varicoceles, Hx Tonsillectomy, Other - Removed melanoma tumors from back and lymph nodes, ventral hernia repair an - Immunizations Hx Diphtheria, Pertussis, Tetanus Vaccination: Yes - unknown Review of Systems - Review of Systems Notes: REVIEW OF SYSTEMS: CONSTITUTIONAL : Denies fever, chills, or sweats. Denies recent illness. EENT: Admits to neck pain CARDIOVASCULAR: Denies chest pain. Denies palpitations or racing or irregular heart beat. Denies ankle edema. RESPIRATORY: Denies cough, cold, or chest congestion. Denies shortness of breath, difficulty breathing, or wheezing. GASTROINTESTINAL: Denies abdominal pain or distention. Denies nausea, vomiting , or diarrhea. Denies blood in vomitus, stools, or per rectum. Denies black, tarry stools. Denies constipation. GENITOURINARY: Denies difficulty urinating, painful urination, burning, frequency, blood in urine, or discharge. MUSCULOSKELETAL: Denies back or neck pain or stiffness. Denies joint pain or swelling. SKIN: Denies rash, lesions or sores. HEMATOLOGIC : Denies easy bruising or bleeding. LYMPHATIC: Denies swollen, enlarged glands. NEUROLOGICAL: Denies confusion or altered mental status. Denies passing out or loss of consciousness. Denies dizziness or lightheadedness. Denies headache. Denies weakness or paralysis or loss of use of either side. Denies problems with gait or speech. Denies sensory loss, numbness, or tingling. Denies seizures. PSYCHIATRIC: Denies anxiety or stress. Denies depression, suicidal ideation, or homicidal ideation. ALL OTHER SYSTEMS REVIEWED AND NEGATIVE. Dictation was performed using [employer] voice recognition software PHYSICAL EXAMINATION: GENERAL: Well-appearing, well-nourished and in no acute distress. HEAD: Atraumatic, normocephalic. EYES: Pupils equal round and reactive to light, extraocular movements intact, sclera anicteric, conjunctiva are normal. ENT: Nares patent, oropharynx clear without exudates. Moist mucous membranes. NECK: Normal range of motion, supple without lymphadenopathy LUNGS: Breath sounds clear to auscultation bilaterally and equal. No wheezes rales or rhonchi. HEART: Regular rate and rhythm without murmurs ABDOMEN: Soft, nontender, nondistended abdomen. No guarding, no rebound. No masses appreciated. Musculoskeletal: Normal range of motion, no pitting or edema. No cyanosis. NEUROLOGICAL: Cranial nerves grossly intact. Normal speech, normal gait. Normal sensory, motor exams PSYCH: Normal mood, normal affect. SKIN: Warm, Dry, normal turgor, no rashes or lesions noted. Physical Exam - Vital signs Vitals: Temp Pulse Resp BP Pulse Ox 97.6 F 65 18 170/92 H 98 07/31/17 18:14 07/31/17 18:14 07/31/17 18:14 07/31/17 18:14 07/31/17 18:14 Course - Re-evaluation Re-evalutation: 08/01/17 02:09 CT cervical spine noted no acute fracture, I evaluated the images by myself spoke with the radiologist and showed the images to the family members, no obvious fractures need noticed on her imaging however c-collar was placed nonetheless for stability, patient was given follow-up with [facility]'s surgeon in case there is in fact a fracture noted. Copy of images have been provided as well. I did explain that if there is a fracture and I am not seeing it that it may be life-threatening and that they must return immediately if there are any other concerns After performing a Medical Screening Examination, I estimate there is LOW risk for UNSTABLE SPINE FRACTURE, CENTRAL CORD SYNDROME, CAUDA EQUINA, THORACIC AORTIC DISSECTION, COMPARTMENT SYNDROME, or OPEN FRACTURE, thus I consider the discharge disposition reasonable. Also, there is no evidence or peritonitis, sepsis, or toxicity. I have reevaluated this patient multiple times and no significant life threatening changes are noted. The patient and I have discussed the diagnosis and risks, and we agree with discharging home to follow- up with their primary doctor with the understanding that symptoms and presentations can change. We also discussed returning to the Emergency Department immediately if new or worsening symptoms occur. We have discussed the symptoms which are most concerning (e.g., bloody stool, fever, changing or worsening pain, vomiting) that necessitate immediate return. - Vital Signs Vital signs: Temp Pulse Resp BP Pulse Ox 98.0 F 60 16 154/94 H 97 07/31/17 21:19 07/31/17 21:19 07/31/17 21:19 07/31/17 21:19 07/31/17 21:19 - Diagnostic Test Radiology reviewed: Image reviewed - ct [id number] spine notes no faracture, Reports reviewed Discharge - Discharge Clinical Impression: Neck injury Qualifiers: Encounter type: subsequent encounter Qualified Code(s): S19.9XXD - Unspecified injury of neck, subsequent encounter Condition: Stable Disposition: HOME, SELF-CARE Additional Instructions: Please follow-up with your surgeon, have them evaluate our imaging, at this time I do not see any fracture however we will place in a c-collar for stabilization If you have any questions regarding our services or would like to schedule an appointment, please contact us using the information listed below. [facility] [place] Fax [address] [place] [address], [address] [place], [place] [id number] [place] [address] [facility] [place] Referrals: KELLEY REBOLLAR PA-C [Primary Care Provider] - Follow up as needed
[2017-07-31 21:21] VITALS: BP 154/94
== END 2017-07-31 21:19 | disposition home or self-care (01) ==
LOC: ER 18:03
DX: M54.2 Cervicalgia (principal); S19.9XXD Unspecified injury of neck, subsequent encounter; X58.XXXS Exposure to other specified factors, sequela; Z87.442 Personal history of urinary calculi; Z90.49 Acquired absence of other specified parts of digestive tract; X58.XXXD Exposure to other specified factors, subsequent encounter; Z98.890 Other specified postprocedural states
CPT/HCPCS: 99283; 72125; L0172

== ENCOUNTER → 2017-08-16 | Outpatient (CLI) | payer MEDICARE, OTHER ==
--- NOTE | 2017-08-16 13:21 | RADIOLOGY REPORT (SQ) ---
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 MRI dated 07/04/2015. TECHNIQUE: Multiplanar imaging includes noncontrasted T1, T2, FLAIR, diffusion with ADC map and post gadolinium contrast T1 sequences. Images stored on PACS. CONTRAST TYPE AND DOSE: 20 mL Multihance. RENAL FUNCTION: GFR 51. LIMITATIONS: None. FINDINGS: ANATOMY: No anomalies. Normal vascular flow voids. Pituitary fossa normal. CSF SPACES: Normal in size and contour. No hemorrhage. CEREBRUM: Sulci and gyri normal in size and contour. Normal white matter signal on FLAIR imaging. No evidence of hemorrhage, mass, or extraaxial fluid collection. No abnormal enhancement post contrast. POSTERIOR FOSSA: No signal alteration. No hemorrhage. No edema, masses, or mass effect. Internal case tory canals, cerebellopontine angles, mastoids normal. No enhancing lesions. No abnormal enhancement post contrast. DIFFUSION IMAGING: Negative for acute or subacute infarction. ORBITS: No masses. Globes normal. PARANASAL SINUSES: No fluid levels. Mucosa normal. OTHER: No other significant finding. IMPRESSION: NORMAL MRI OF THE BRAIN WITHOUT AND WITH INTRAVENOUS GADOLINIUM CONTRAST. EVIDENCE OF ACUTE STROKE: NO. TECHNICAL DOCUMENTATION: JOB ID: [id number] [employer]- All Rights Reserved Reading location - IP/workstation name: [email or web address]
--- NOTE | 2017-08-16 14:38 | RADIOLOGY REPORT (SQ) ---
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 TECHNIQUE: Sagittal and Axial imaging includes T1, T2, STIR and gradient echo sequences. T1 post dominic olinium sequences. CONTRAST TYPE AND DOSE: 20 mL gallium based contrast, specific agent not indicated. RENAL FUNCTION: GFR 51 LIMITATIONS: None. FINDINGS: ALIGNMENT: Normal. VERTEBRAE: Intact. BONE MARROW: Normal. No marrow replacement or reactive changes. HARDWARE: Anterior instrumentation spans C5 through C7 with associated mild obscuring artifact. DISCS: No large disc hernias or bulges. CORD AND BASE OF BRAIN: Normal in size and signal intensity. SOFT TISSUES: No paraspinal mass or fluid. Scattered subcentimeter neck nodes bilaterally. C1-C2: No significant spinal stenosis. C2-C3: Moderate left foraminal narrowing. C3-C4: Mild left foraminal narrowing. C4-C5: No significant spinal stenosis or exit foraminal stenosis. C5-C6: Operative level. No significant stenosis. C6-C7: Operative level. No significant stenosis. C7-T1: No significant spinal stenosis or exit foraminal stenosis. UPPER THORACIC: Incompletely imaged. No significant spinal stenosis or exit foraminal stenosis. ENHANCEMENT: No abnormal enhancement. OTHER: No other significant finding. IMPRESSION: 1. Postoperative and mild degenerative changes in the cervical spine. No high-grade desi nosis. No suspicious bone or cord lesions. COMMENT: None. TECHNICAL DOCUMENTATION: JOB ID: [id number] [employer]- All Rights Reserved Reading location - IP/workstation name: [email or web address]
== END ==
LOC: RAD 10:45
PROVIDERS: ATTEND Neurological Surgery
DX: C79.9 Secondary malignant neoplasm of unspecified site (principal); R29.898 Other symptoms and signs involving the musculoskeletal system
CPT/HCPCS: 82565; 70553; 72156; A9577

== ENCOUNTER → 2017-08-20 | Outpatient (CLI) | payer MEDICARE, OTHER ==
--- NOTE | 2017-08-22 15:42 | WOMENS IMAGING REPORT ---
EXAM DESCRIPTION: 3D DX MAMMO BILAT; U/S BREAST UNILAT LIMITED COMPLETED DATE/TIME: 08/20/2017 8:16 am; 08/20/2017 8:37 am REASON FOR STUDY: LEFT BREAST PAIN; LEFT BREAST PAIN; N64.4 N64.4 MASTODYNIA COMPARISON: None. TECHNIQUE: Standard craniocaudal and mediolateral oblique views of each breast recorded using digita l acquisition and breast tomosynthesis. Additional left male breast craniocaudad and 90 mediolateral view cone compression imaging. Additio nal left whole breast 90 mediolateral view Left male breast ultrasound was performed with comparison imaging of the right side. LIMITATIONS: None. FINDINGS: RIGHT BREAST MASSES: No suspicious masses. CALCIFICATIONS: No new or suspicious calcifications. ARCHITECTURAL DISTORTION: None. DEVELOPING DENSITY: None. ASYMMETRY: None noted. OTHER: No other significant findings. LEFT BREAST MASSES: No suspicious masses. CALCIFICATIONS: No new or suspicious calcifications. ARCHITECTURAL DISTORTION: None. DEVELOPING DENSITY: None. ASYMMETRY: Minimal left gynecomastia is present. OTHER: No other significant finding. Read with the assistance of CAD: .[facility] - R2 Cenova Version 1.3 .[facility] Imaging - R2 Cenova Version 1.3 .[facility] Imaging - R2 Cenova Version 2.4 .[facility] - R2 Cenova Version 2.4 .[facility] - R2 System Configuration Specialist Version 9.2 Left breast ultrasound: Left breast ultrasound was performed with comparison imaging of the right breast. On the left side, minimal retroareolar gynecomastia is present. No worrisome sonographic features. On the right side, the retroareolar male breast soft tissues are unremarkable. IMPRESSION: No mammographic or sonographic evidence for malignancy bilaterally. Left breast mild gynecomastia. BREAST DENSITY: a. The breasts are almost entirely fatty. BIRAD: 2 Benign findings. RECOMMENDATION: RECOMMENDED FOLLOW UP: Clinical follow-up recommended. SPECIFIC INTERVENTION/IMAGING/CONSULTATION RECOMMENDED:Clinical follow-up recommended COMMUNICATION:Patient notified by letter COMMENT: The patient has been notified of the results by letter per SA requirements. Additional no tification policies are in place for contacting patient with suspicious or incomplete findings. Quality ID #225: The [employer] recommends an annual screening mammogram for women aged 40 years or over. This facility utilizes a reminder system to ensure that all patients receive reminder letters, and/or direct phone calls for appointments. This includes reminders for routine scr eening mammograms, diagnostic mammograms, or other Breast Imaging Interventions when appropriate. Th is patient will be placed in the appropriate reminder system. The [employer] (ACR) has developed recommendations for screening MRI of the breast s in certain patient populations, to be used in conjunction with mammography. Breast MRI surveillanc e may be appropriate for women with more than 20% lifetime risk of developing breast cancer as deter mined by genetic testing, significant family history of the disease, or history of mantle radiation f or Hodgkins Disease. ACR Practice Guidelines 2008. DBT Technology DBT is a type of tomographic mammography. With conventional mammography, overlapping breast tissue ma y make lesions difficult to detect, even with good compression. DBT uses an x-ray tube that rotates a round the breast, taking images at different angles. These images are then combined to create thin sl ices of the breast that the radiologist can view as a 3D reconstruction. The [employer] unit can perform full-field digital mammograms (2D imaging); or DBT (3D imaging); or both, in a combination mode that quickly performs both the mammogram and the tomosynthesis scan while the breast is still compressed. PQRS 6045F: Fluoroscopic imaging is not utilized for breast tomosynthesis. TECHNICAL DOCUMENTATION: FINDING NUMBER: (1) ASSESSMENT: (1) JOB ID: [id number] [employer]- All Rights Reserved Reading location - IP/workstation name: [email or web address]
--- NOTE | 2017-08-22 15:42 | WOMENS IMAGING REPORT ---
EXAM DESCRIPTION: 3D DX MAMMO BILAT; U/S BREAST UNILAT LIMITED COMPLETED DATE/TIME: 08/20/2017 8:16 am; 08/20/2017 8:37 am REASON FOR STUDY: LEFT BREAST PAIN; LEFT BREAST PAIN; N64.4 N64.4 MASTODYNIA COMPARISON: None. TECHNIQUE: Standard craniocaudal and mediolateral oblique views of each breast recorded using digita l acquisition and breast tomosynthesis. Additional left male breast craniocaudad and 90 mediolateral view cone compression imaging. Additio nal left whole breast 90 mediolateral view Left male breast ultrasound was performed with comparison imaging of the right side. LIMITATIONS: None. FINDINGS: RIGHT BREAST MASSES: No suspicious masses. CALCIFICATIONS: No new or suspicious calcifications. ARCHITECTURAL DISTORTION: None. DEVELOPING DENSITY: None. ASYMMETRY: None noted. OTHER: No other significant findings. LEFT BREAST MASSES: No suspicious masses. CALCIFICATIONS: No new or suspicious calcifications. ARCHITECTURAL DISTORTION: None. DEVELOPING DENSITY: None. ASYMMETRY: Minimal left gynecomastia is present. OTHER: No other significant finding. Read with the assistance of CAD: .[facility] - R2 Cenova Version 1.3 .[facility] Imaging - R2 Cenova Version 1.3 .[facility] Imaging - R2 Cenova Version 2.4 .[facility] - R2 Cenova Version 2.4 .[facility] - R2 [employer] Version 9.2 Left breast ultrasound: Left breast ultrasound was performed with comparison imaging of the right breast. On the left side, minimal retroareolar gynecomastia is present. No worrisome sonographic features. On the right side, the retroareolar male breast soft tissues are unremarkable. IMPRESSION: No mammographic or sonographic evidence for malignancy bilaterally. Left breast mild gynecomastia. BREAST DENSITY: a. The breasts are almost entirely fatty. BIRAD: 2 Benign findings. RECOMMENDATION: RECOMMENDED FOLLOW UP: Clinical follow-up recommended. SPECIFIC INTERVENTION/IMAGING/CONSULTATION RECOMMENDED:Clinical follow-up recommended COMMUNICATION:Patient notified by letter COMMENT: The patient has been notified of the results by letter per SA requirements. Additional no tification policies are in place for contacting patient with suspicious or incomplete findings. Quality ID #225: The [employer] recommends an annual screening mammogram for women aged 40 years or over. This facility utilizes a reminder system to ensure that all patients receive reminder letters, and/or direct phone calls for appointments. This includes reminders for routine scr eening mammograms, diagnostic mammograms, or other Breast Imaging Interventions when appropriate. Th is patient will be placed in the appropriate reminder system. The [employer] (ACR) has developed recommendations for screening MRI of the breast s in certain patient populations, to be used in conjunction with mammography. Breast MRI surveillanc e may be appropriate for women with more than 20% lifetime risk of developing breast cancer as deter mined by genetic testing, significant family history of the disease, or history of mantle radiation f or Hodgkins Disease. ACR Practice Guidelines 2008. DBT Technology DBT is a type of tomographic mammography. With conventional mammography, overlapping breast tissue ma y make lesions difficult to detect, even with good compression. DBT uses an x-ray tube that rotates a round the breast, taking images at different angles. These images are then combined to create thin sl ices of the breast that the radiologist can view as a 3D reconstruction. The [employer] unit can perform full-field digital mammograms (2D imaging); or DBT (3D imaging); or both, in a combination mode that quickly performs both the mammogram and the tomosynthesis scan while the breast is still compressed. PQRS 6045F: Fluoroscopic imaging is not utilized for breast tomosynthesis. TECHNICAL DOCUMENTATION: FINDING NUMBER: (1) ASSESSMENT: (1) JOB ID: [id number] [employer]- All Rights Reserved Reading location - IP/workstation name: [email or web address]
== END ==
LOC: WI 07:49
PROVIDERS: ATTEND Internal Medicine Medical Oncology
DX: N64.4 Mastodynia (principal)
CPT/HCPCS: 76642; 77066; G0279; 77062

== ENCOUNTER 2017-08-29 07:45 | Emergency (ER) | payer MEDICARE, OTHER ==
[2017-08-29 07:50] VITALS: BP 154/84
[2017-08-29] MEDS ORDERED: BENZONATATE 100 MG CAPSULE PO ONE (08:14)
--- NOTE | 2017-08-29 09:19 | RADIOLOGY REPORT (SQ) ---
EXAM DESCRIPTION: CHEST 2 VIEWS COMPLETED DATE/TIME: 08/29/2017 9:01 am REASON FOR STUDY: cough COMPARISON: Two-view chest 10/12/2014 EXAM PARAMETERS: NUMBER OF VIEWS: two views TECHNIQUE: Digital Frontal and Lateral radiographic views of the chest acquired. RADIATION DOSE: NA LIMITATIONS: none FINDINGS: LUNGS AND PLEURA: No opacities, masses or pneumothorax. No pleural effusion. MEDIASTINUM AND HILAR STRUCTURES: No masses or contour abnormalities. HEART AND VASCULAR STRUCTURES: Heart normal size. No evidence for failure. BONES: Lower cervical fusion hardware HARDWARE: Left PICC line tip superior vena cava OTHER: Clips right upper quadrant post cholecystectomy IMPRESSION: No acute findings TECHNICAL DOCUMENTATION: JOB ID: [id number] [employer]- All Rights Reserved Reading location - IP/workstation name: [email or web address]
--- NOTE | 2017-08-29 09:40 | ER Document Report ---
ED General - General Chief Complaint: Productive Cough Stated Complaint: COLD SYMPTOMS Time Seen by Provider: 08/29/17 08:04 TRAVEL OUTSIDE OF THE [place] IN LAST 30 DAYS: No - HPI Notes: 57-year-old male with history of melanoma that is currently in remission presents emergency department complaining of 4-5 day history of cough, subjective fevers, sore throat and voice changes but denies any rhinorrhea or dysphagia. Patient states the cough is nonproductive and denies any shortness of breath. - Related Data Allergies/Adverse Reactions: ceftriaxone [From Rocephin] Allergy (Verified 08/29/17 08:16) Past Medical History - General Information source: Patient - Social History Smoking Status: Former Smoker Chew tobacco use (# tins/day): No Frequency of alcohol use: None Drug Abuse: None Family History: Reviewed & Not Pertinent, Arthritis Patient has suicidal ideation: No Patient has homicidal ideation: No - Past Medical History Cardiac Medical History: Denies: Hx Coronary Artery Disease, Hx Hypertension Renal/ Medical History: Reports: Hx Kidney Stones. Denies: Hx Peritoneal Dialysis GI Medical History: Reports: Hx Diverticulitis, Hx Gastroesophageal Reflux Disease, Hx Colonoscopy Musculoskeltal Medical History: Reports Hx Arthritis, Reports Hx Musculoskeletal Deformity, Reports Hx Musculoskeletal Trauma Skin Medical History: Reports Other - Melanoma Psychiatric Medical History: Reports: Hx Anxiety, Hx Depression Traumatic Medical History: Reports: Hx Fractures, Hx Traumatic Brain Injury Past Surgical History: Reports: Hx Adenoidectomy, Hx Bowel Surgery, Hx Cholecystectomy, Hx Neurologic Surgery - Neck 2, Hx Oral Surgery - Dental surgery, Hx Orthopedic Surgery - shoulder, knee, carpal tunnel, Hx Testicular Surgery - Wire for varicoceles, Hx Tonsillectomy, Other - Removed melanoma tumors from back and lymph nodes, ventral hernia repair an - Immunizations Hx Diphtheria, Pertussis, Tetanus Vaccination: Yes - unknown Review of Systems - Review of Systems Constitutional: See HPI EENT: See HPI Cardiovascular: No symptoms reported Respiratory: See HPI Gastrointestinal: No symptoms reported Skin: No symptoms reported Neurological/Psychological: No symptoms reported Physical Exam - Vital signs Vitals: Temp Pulse Resp BP Pulse Ox 98.7 F 84 18 154/84 H 97 08/29/17 07:49 08/29/17 07:49 08/29/17 07:49 08/29/17 07:49 08/29/17 07:49 Interpretation: Hypertensive - Notes Notes: GENERAL: Alert, interacts well. No acute distress. HEAD: Normocephalic, atraumatic EYES: Pupils equal, round and reactive to light, extraocular movements intact. ENT: Oral mucosa moist, tongue midline. Nares patent, no nasal septal hematoma, TMs intact. NECK: Full range of motion, supple, trachea midline. LUNGS: Clear to auscultation bilaterally, no wheezes, rales or rhonchi, no respiratory distress. HEART: Regular rate and rhythm, no murmurs, gallops, rubs. EXTREMITIES: Moves all 4 extremities spontaneously. No cyanosis. NEUROLOGICAL: Alert and oriented x3, normal speech, no facial droop. PSYCH: Normal mood, normal affect. SKIN: Warm, Dry, normal turgor, no rashes or lesions noted. Course - Re-evaluation Re-evalutation: 08/29/17 09:40 Chest x-ray is negative, no respiratory compromise, no wheezing. No indication for antibiotics, steroids or breathing treatments. Patient will be treated with Tessalon Perles and discharged to home. Consistent with viral bronchitis. - Vital Signs Vital signs: Temp Pulse Resp BP Pulse Ox 98.7 F 84 18 154/84 H 97 08/29/17 07:49 08/29/17 07:49 08/29/17 07:49 08/29/17 07:49 08/29/17 07:49 Discharge - Discharge Clinical Impression: Cough Condition: Stable Disposition: HOME, SELF-CARE Additional Instructions: Today your chest x-ray was negative. There is no sign of pneumonia. Your symptoms are consistent with a viral bronchitis. These typically take 7-14 days to resolve. The Tessalon Perles will help to decrease your cough. There is nothing we can do to make the viral bronchitis go away faster. Please drink plenty fluids, use a humidifier which will also help to decrease your cough, you may also try guaifenesin-containing medications [id number] such as Mucinex. You do have high blood pressure so please avoid decongestants and other combination medications except for Coricidin HBP. Sometimes viral bronchitis will worsen and turn into a bacterial pneumonia. Should your cough severely worsen, you develop fevers or you develop significant shortness of breath please return to the emergency department. Prescriptions: Benzonatate [Tessalon Perles 100 mg Capsule] 100 mg PO Q8HP PRN #40 capsule PRN Reason: Referrals: KELLEY REBOLLAR PA-C [Primary Care Provider] - Follow up as needed
== END 2017-08-29 09:45 | disposition home or self-care (01) ==
LOC: ER 07:45
DX: R05 Cough (principal); R50.9 Fever, unspecified; J02.9 Acute pharyngitis, unspecified; Z85.820 Personal history of malignant melanoma of skin; Z87.891 Personal history of nicotine dependence
CPT/HCPCS: 99283; 71046; A9270

== ENCOUNTER → 2017-09-05 | Outpatient (CLI) | payer MEDICARE, OTHER ==
--- NOTE | 2017-09-05 14:32 | RADIOLOGY REPORT (SQ) ---
EXAM DESCRIPTION: CTA NECK COMPLETED DATE/TIME: 09/05/2017 1:59 pm REASON FOR STUDY: OTH SYMPTOMS AND SIGNS INVOLVING THE MUSCULOSKELETAL SYSTEM R29.898 OTH SYMPTOMS AND SIGNS INVOLVING THE MUSCULOSKELETAL R20.0 ANESTHESIA OF SKIN G83.9 PARALYTIC SYNDROME, UNSPECIF IED COMPARISON: None. TECHNIQUE: Axial dynamic scanning technique with dynamic contrast enhancement through the extra-sales representative aircraft nial carotid and vertebral arteries. Multiplanar reconstruction. 3-D MIPS and Volume-rendered imag es acquired at the workstation and saved to PACS. Images are reviewed in soft tissue, bone, lung w indows. All CT scanners at this facility use dose modulation, iterative reconstruction, and/or weight based d osing when appropriate to reduce radiation dose to as low as reasonably achievable (ALARA). [facility]: Dose Right [facility]: CareDose [facility]: Dose Right [facility]: Teradose 4D [facility]: Sendio CONTRAST TYPE AND DOSE: contrast/concentration: Isovue 370.00 mg/ml; Total Contrast Delivered: 80.0 ml; Total Saline Delivered: 71.0 ml RENAL FUNCTION: Creatinine 1.3 LIMITATIONS: None. FINDINGS: AORTIC ARCH: Normal three-vessel origin. Bilateral subclavian arteries are patent. No d issection. RIGHT CAROTIDS: Patent common, internal and external carotid arteries without suggestion of significa nt stenosis or irregular plaque. No dissection. RIGHT VERTEBRAL: Patent. No dissection. LEFT CAROTIDS: Patent common, internal and external carotid arteries without suggestion of significan t stenosis or irregular plaque. No dissection. LEFT VERTEBRAL: Patent. No dissection. OTHER: No other significant finding. OTHER: 3-D reconstructions confirm findings. IMPRESSION: NORMAL CTA OF THE EXTRA-CRANIAL CAROTID AND VERTEBRAL ARTERIES. COMMENT: Quality ID #[id number]: Measurements of distal internal carotid diameter were used as the denomina tor for stenosis measurement. TECHNICAL DOCUMENTATION: JOB ID: [id number] Quality ID # 436: Final reports with documentation of one or more dose reduction techniques (e.g., Au tomated exposure control, adjustment of the mA and/or kV according to patient size, use of iterative reconstruction technique) 2010 [employer]- All Rights Reserved Reading location - IP/workstation name: [email or web address]
--- NOTE | 2017-09-05 14:39 | RADIOLOGY REPORT (SQ) ---
EXAM DESCRIPTION: CTA HEAD COMPLETED DATE/TIME: 09/05/2017 1:59 pm REASON FOR STUDY: OTH SYMPTOMS AND SIGNS INVOLVING THE MUSCULOSKELETAL SYSTEM R29.898 OTH SYMPTOMS AND SIGNS INVOLVING THE MUSCULOSKELETAL R20.0 ANESTHESIA OF SKIN G83.9 PARALYTIC SYNDROME, UNSPECIF IED COMPARISON: MRI of the head 08/16/2017 CT of the head 09/23/2015 TECHNIQUE: Post IV contrast scanning, thin section axial imaging through the brain to evaluate the a rterial structures. Source and MIP images are saved and reviewed on PACS. Advanced 3D imaging as volume-rendering, MIPs, SSD performed? yes All CT scanners at this facility use dose modulation, iterative reconstruction, and/or weight based d osing when appropriate to reduce radiation dose to as low as reasonably achievable (ALARA). [facility]: Dose Right [facility]: CareDose [facility]: Dose Right [facility]: Teradose 4D [facility]: Curverider CONTRAST TYPE AND DOSE: 80 mL Isovue 370- low osmolar. RENAL FUNCTION: Creatinine 1.3 LIMITATIONS: None. FINDINGS: [place] BAND OF COMBS: The anterior, middle, posterior cerebral arteries are all patent. No ev idence of aneurysm or focal stenosis. POSTERIOR CIRCULATION: The distal vertebral arteries are patent as is the basilar artery. No aneurysm . BRAIN: No gross enhancing lesions as visualized. The superior cerebral hemispheres are not included in the field of view. BONES: Intact as visualized. SINUSES: No fluid or mucosal thickening. OTHER: No other significant finding. IMPRESSION: NO CTA EVIDENCE OF STENOSIS OR ANEURYSM OF THE [place] BAND OF COMBS. TECHNICAL DOCUMENTATION: JOB ID: [id number] Quality ID # [id number]: Final reports with documentation of one or more dose reduction techniques (e.g., Au tomated exposure control, adjustment of the mA and/or kV according to patient size, use of iterative reconstruction technique) 2010 [employer]- All Rights Reserved Reading location - IP/workstation name: [email or web address]
== END ==
LOC: RAD 13:14
PROVIDERS: ATTEND Neurological Surgery
DX: G83.9 Paralytic syndrome, unspecified (principal); R29.898 Other symptoms and signs involving the musculoskeletal system; R20.0 Anesthesia of skin
CPT/HCPCS: 70496; 70498; 82565

== ENCOUNTER 2017-10-28 18:34 | Emergency (ER) | payer MEDICARE, OTHER ==
[2017-10-28] MEDS ORDERED: KETOROLAC TROMETHAMINE INJ/PF 30 MG/1 ML SDV IV ONE (20:31)
[2017-10-28] MEDS ORDERED: ONDANSETRON HCL INJ/PF 4 MG/2 ML SDV IV ONE (20:31)
[2017-10-28] MEDS ORDERED: TAMSULOSIN HCL 0.4 MG CAP.SR.24H PO ONE (21:02)
--- NOTE | 2017-10-28 21:04 | ER Document Report ---
ED General - General Chief Complaint: Flank Pain Stated Complaint: POSSIBLE KIDNEY STONES Time Seen by Provider: 10/28/17 20:24 Mode of Arrival: Ambulatory Information source: Patient, Relative, [facility] Records Notes: 57-year-old male with history of traumatic brain injury, GERD, recurrent kidney stones presents with complaint of left flank pain that started 3 hours prior to arrival. Patient describes the pain as constant, stabbing. He has had associated nausea without vomiting. He denies any dysuria, hematuria, fever, chills, abdominal pain. TRAVEL OUTSIDE OF THE [place] IN LAST 30 DAYS: No - HPI Onset: Just prior to arrival Onset/Duration: Sudden, Persistent Quality of pain: Stabbing Severity: Moderate Pain Level: 2 Associated symptoms: Nausea. denies: Chest pain, Fever, Vomiting, Shortness of breath Exacerbated by: Denies Relieved by: Denies Similar symptoms previously: Yes Recently seen / treated by doctor: No - Related Data Allergies/Adverse Reactions: ceftriaxone [From Rocephin] Allergy (Verified 08/29/17 08:16) Past Medical History - General Information source: Patient, Relative, [facility] Records - Social History Smoking Status: Never Smoker Chew tobacco use (# tins/day): No Frequency of alcohol use: None Drug Abuse: None Lives with: Spouse/Significant other Family History: Reviewed & Not Pertinent, Arthritis Patient has suicidal ideation: No Patient has homicidal ideation: No - Past Medical History Cardiac Medical History: Denies: Hx Coronary Artery Disease, Hx Hypertension Renal/ Medical History: Reports: Hx Kidney Stones. Denies: Hx Peritoneal Dialysis GI Medical History: Reports: Hx Diverticulitis, Hx Gastroesophageal Reflux Disease, Hx Colonoscopy Musculoskeletal Medical History: Reports Hx Arthritis, Reports Hx Musculoskeletal Deformity, Reports Hx Musculoskeletal Trauma Psychiatric Medical History: Reports: Hx Anxiety, Hx Depression Traumatic Medical History: Reports: Hx Fractures, Hx Traumatic Brain Injury Past Surgical History: Reports: Hx Adenoidectomy, Hx Bowel Surgery, Hx Cholecystectomy, Hx Neurologic Surgery - Neck 2, Hx Oral Surgery - Dental surgery, Hx Orthopedic Surgery - shoulder, knee, carpal tunnel, Hx Testicular Surgery - Wire for varicoceles, Hx Tonsillectomy, Other - Removed melanoma tumors from back and lymph nodes, ventral hernia repair an - Immunizations Hx Diphtheria, Pertussis, Tetanus Vaccination: Yes - unknown Review of Systems - Review of Systems Notes: REVIEW OF SYSTEMS: CONSTITUTIONAL : Denies fever, chills, or sweats. Denies recent illness. Denies weight loss, recent hospitalizations. EENT: Denies visual changes, eye pain. Denies nasal or sinus congestion or discharge. Denies sore throat, oral lesions, difficulty swallowing. CARDIOVASCULAR: Denies chest pain. Denies palpitations. Denies lower extremity edema. RESPIRATORY: Denies cough, cold, or chest congestion. Denies shortness of breath, wheezing. GASTROINTESTINAL: Denies abdominal pain or distention. Denies nausea, vomiting , or diarrhea. Denies blood in vomitus, stools, or per rectum. Denies black, tarry stools. Denies constipation. GENITOURINARY: Denies difficulty urinating, painful urination, frequency, blood in urine, or vaginal discharge. MUSCULOSKELETAL: Denies back or neck pain or stiffness. Denies joint pain or swelling. SKIN: Denies rash, lesions or sores. HEMATOLOGIC : Denies easy bruising or bleeding. LYMPHATIC: Denies swollen glands. NEUROLOGICAL: Denies confusion or altered mental status. Denies passing out or loss of consciousness. Denies dizziness or lightheadedness. Denies headache. Denies weakness or paralysis. Denies problems difficulty with ambulation, slurred speech. Denies sensory loss, numbness, or tingling. Denies seizures. PSYCHIATRIC: Denies anxiety or stress. Denies depression, suicidal ideation, or homicidal ideation. Denies visual or auditory hallucinations. Physical Exam - Vital signs Vitals: Temp Pulse Resp BP Pulse Ox 98.8 F 65 18 173/93 H 99 10/28/17 18:49 10/28/17 18:49 10/28/17 18:49 10/28/17 18:49 10/28/17 18:49 Interpretation: Hypertensive - Notes Notes: PHYSICAL EXAMINATION: GENERAL: Well-appearing, well-nourished and in no acute distress. HEAD: Atraumatic, normocephalic. EYES: Pupils equal round and reactive to light, extraocular movements intact, sclera anicteric, conjunctiva are normal. ENT: Nares patent, oropharynx clear without exudates. Moist mucous membranes. NECK: Normal range of motion, supple without lymphadenopathy LUNGS: Breath sounds clear to auscultation bilaterally and equal. No wheezes rales or rhonchi. HEART: Regular rate and rhythm without murmurs ABDOMEN: Soft, nontender, nondistended abdomen. No guarding, no rebound. No masses appreciated. : Left CVA tenderness Musculoskeletal: Normal range of motion, no pitting or edema. No cyanosis. NEUROLOGICAL: Cranial nerves grossly intact. Normal speech, normal gait. Normal sensory, motor exams PSYCH: Normal mood, normal affect. SKIN: Warm, Dry, normal turgor, no rashes or lesions noted. Course - Re-evaluation Re-evalutation: 10/28/17 22:10 Laboratory 10/28/17 10/28/17 19:55 20:50 Sodium 141.4 Potassium 4.6 Chloride 104 Carbon Dioxide 26 Anion Gap 11 BUN 22 H Creatinine 1.30 H Est GFR ( Amer) > 60 Est GFR (Non-Af Amer) 57 L Glucose 89 Calcium 9.2 Urine Color YELLOW Urine Appearance CLEAR Urine pH 6.0 Ur Specific [place] 1.016 Urine Protein NEGATIVE Urine Glucose (UA) NEGATIVE Urine Ketones NEGATIVE Urine Blood SMALL H Urine Nitrite NEGATIVE Urine Bilirubin NEGATIVE Urine Urobilinogen NEGATIVE Ur Leukocyte Esterase NEGATIVE Urine WBC (Auto) 3 Urine RBC (Auto) 6 Urine Mucus (Auto) FEW Urine Ascorbic Acid NEGATIVE Limited or Localized CT 10/28/17 21:01 IMPRESSION: Left hydronephrosis. An obstructing calculus is not seen. Possible UPJ obstruction. Mild diverticulosis. 10/29/17 00:11 57-year-old male with history of traumatic brain injury, GERD, recurrent kidney stones presents with complaint of left flank pain that started 3 hours prior to arrival. Patient describes the pain as constant, stabbing. He has had associated nausea without vomiting. He denies any dysuria, hematuria, fever, chills, abdominal pain. Vital signs reviewed upon arrival. Patient is afebrile , hypertensive but not hypoxic. He is in no acute distress. Bedside ultrasound was performed and significant for left hydronephrosis. Because of the patient's long-standing history of impassable stone CT was obtained which does show left hydronephrosis but no obstructing calculus leading the possibility that the stone is at the UPJ. Patient did receive IV fluids, Toradol and Flomax. On reevaluation patient states that he feels good and pain has improved. Patient found to have mild renal insufficiency. He is requesting discharge home with Toradol and Flomax. He will follow-up with his primary care physician tomorrow. Patient provided the opportunity to ask questions, and express concerns. Discharge instructions discussed. Patient is agreeable with discharge home. Return indications explained and discussed with the patient who displays understanding. Patient encouraged to return to the emergency department immediately with any concerns. 10/29/17 00:11 - Vital Signs Vital signs: Temp Pulse Resp BP Pulse Ox 98.8 F 60 18 158/66 H 98 10/28/17 18:49 10/28/17 22:50 10/28/17 22:50 10/28/17 22:50 10/28/17 22:50 - Laboratory Result Diagrams: 10/28/17 19:55 Laboratory results interpreted by me: 10/28/17 10/28/17 19:55 20:50 BUN 22 H Creatinine 1.30 H Est GFR (Non-Af Amer) 57 L Urine Blood SMALL H - Diagnostic Test Radiology reviewed: Image reviewed, Reports reviewed Procedures - Ultrasound/Bedside Ultrasound/Bedside Time completed: 21:04 Ultrasound: Other - Renal ultrasound performed to assess for hydronephrosis. Large left anechoic area which could represent shadowing from a stone within the kidney or hydronephrosis. Urine jets seen bilaterally. Right hydronephrosis absent. Discharge - Discharge Clinical Impression: Renal insufficiency, mild Hydronephrosis Qualifiers: Hydronephrosis type: unspecified Qualified Code(s): N13.30 - Unspecified hydronephrosis Hematuria Qualifiers: Hematuria type: unspecified type Qualified Code(s): R31.9 - Hematuria, unspecified Hypertension Qualifiers: Hypertension type: unspecified Qualified Code(s): I10 - Essential (primary) hypertension Condition: Good Disposition: HOME, SELF-CARE Instructions: Hematuria ([facility]), Kidney Function Abnormality ([facility]), Kidney Injury ([facility]), Kidney Stone ([facility]) Additional Instructions: Please follow-up with your primary care physician tomorrow. Prescriptions: Ketorolac Tromethamine [Toradol 10 mg Tablet] 10 mg PO Q6HP PRN #16 tablet PRN Reason: Ondansetron [Zofran Odt 4 mg Tablet] 1 - 2 tab PO Q4H PRN #15 tab.rapdis PRN Reason: For Nausea/Vomiting Tamsulosin HCl [Flomax 0.4 mg Cap.sr] 0.4 mg PO DAILY #7 cap.sr.24h Forms: Elevated Blood Pressure Referrals: KELLEY REBOLLAR PA-C [Primary Care Provider] - Follow up tomorrow
[2017-10-28 21:13] LABS: APPEARANCE,URINE CLEAR; BILIRUBIN,URINE NEGATIVE (NEGATIVE); COLOR,URINE YELLOW; GLUCOSE, URINE NEGATIVE (NEGATIVE); KETONES,URINE NEGATIVE (NEGATIVE); LEUKOCYTE ESTERASE,URINE NEGATIVE (NEGATIVE); NITRITE,URINE NEGATIVE (NEGATIVE); PROTEIN,URINE NEGATIVE (NEGATIVE); URINE SPECIFIC GRAVITY 1.016; UROBILINOGEN,URINE NEGATIVE mg/dL (<2.0)
[2017-10-28 21:22] LABS: ANION GAP 11 (5-19); BLOOD UREA NITROGEN 22 mg/dL (7-20); CALCIUM 9.2 mg/dL (8.4-10.2); CARBON DIOXIDE 26 mmol/L (22-30); CHLORIDE 104 mmol/L (98-107); GLUCOSE 89 mg/dL (75-110); POTASSIUM 4.6 mmol/L (3.6-5.0); SODIUM 141.4 mmol/L (137-145)
--- NOTE | 2017-10-28 21:52 | RADIOLOGY REPORT (SQ) ---
EXAM DESCRIPTION: CT LTD RENAL STONE PROTOCOL ON COMPLETED DATE/TIME: 10/28/2017 9:18 pm REASON FOR STUDY: left flank pain COMPARISON: 04/28/2017 TECHNIQUE: CT scan of the abdomen and pelvis performed without intravenous or oral contrast. Images reviewed with lung, soft tissue, and bone windows. Reconstructed coronal and sagittal MPR images revi ewed. All images stored on PACS. All CT scanners at this facility use dose modulation, iterative reconstruction, and/or weight based d osing when appropriate to reduce radiation dose to as low as reasonably achievable (ALARA). [facility]: Dose Right [facility]: CareDose [facility]: Dose Right [facility]: Teradose 4D [facility]: Smart [employer] RADIATION DOSE: CT Rad equipment meets quality standard of care and radiation dose reduction techniq ues were employed. CTDIvol: 17.2 mGy. DLP: 992 mGy-cm.mGy. LIMITATIONS: None. FINDINGS: LOWER CHEST: No significant findings. No nodules or infiltrates. NON-CONTRASTED LIVER, SPLEEN, ADRENALS: Evaluation limited by lack of IV contrast. No identified sign ificant masses. PANCREAS: No masses. No peripancreatic inflammatory changes. GALLBLADDER: Surgically absent. RIGHT KIDNEY AND URETER: No suspicious masses. Assessment limited by lack of IV contrast. No signif icant calcifications. No hydronephrosis or hydroureter. LEFT KIDNEY AND URETER: No suspicious masses. Assessment limited by lack of IV contrast. No signifi cant calcifications. There is left hydronephrosis. The renal pelvis is quite prominent. There is no ureteral dilatation. No obstructing calculus is appreciated. AORTA AND RETROPERITONEUM: No aneurysm. No retroperitoneal masses or adenopathy. BOWEL AND PERITONEAL CAVITY: Mild diverticulosis. No acute inflammatory changes. APPENDIX: Not identified. PELVIS, BLADDER, AND ABDOMINAL WALL:No abnormal masses. No free fluid. Bladder normal. BONES: No significant findings. OTHER: No other significant finding. IMPRESSION: Left hydronephrosis. An obstructing calculus is not seen. Possible UPJ obstruction. M ild diverticulosis. COMMENT: Quality ID # [id number]: Final reports with documentation of one or more dose reduction techniques (e.g., Automated exposure control, adjustment of the mA and/or kV according to patient size, use of iterative reconstruction technique) TECHNICAL DOCUMENTATION: JOB ID: [id number] [employer]- All Rights Reserved Reading location - IP/workstation name: [email or web address]
[2017-10-28 22:52] VITALS: BP 158/66
== END 2017-10-28 22:50 | disposition home or self-care (01) ==
LOC: ER 18:34
DX: N28.9 Disorder of kidney and ureter, unspecified (principal); N13.30 Unspecified hydronephrosis; R11.0 Nausea; R10.9 Unspecified abdominal pain; I10 Essential (primary) hypertension; R31.9 Hematuria, unspecified; Z87.442 Personal history of urinary calculi; Z90.49 Acquired absence of other specified parts of digestive tract
CPT/HCPCS: 99284; 96374; 96375; 36415; 80048; 81001; 76380; J1885; A9270; J2405

== ENCOUNTER → 2017-12-26 | Outpatient (CLI) | payer MEDICARE, OTHER ==
--- NOTE | 2017-12-26 13:03 | RADIOLOGY REPORT (SQ) ---
EXAM DESCRIPTION: CERV SP 3 VIEW OR LESS COMPLETED DATE/TIME: 12/26/2017 12:53 pm REASON FOR STUDY: *FLEX/EXT ONLY* CERVICAL RADICULOPATHY (M54.12) M54.12 RADICULOPATHY, CERVICAL RE GION COMPARISON: None. NUMBER OF VIEWS: Two view. TECHNIQUE: Lateral views of the cervical spine with flexion and extension. LIMITATIONS: None. FINDINGS: MINERALIZATION: Normal. ALIGNMENT: Anatomic. FLEXION/EXTENSION: No instability. VERTEBRAE: Vertebral bodies of normal height. DISCS: No significant osteophytes or sclerosis. Disc height maintained. LATERAL AND POSTERIOR ELEMENTS: Facets, lateral masses, and spinous processes without significant fin dings. HARDWARE: Anterior hardware at C5, C 6, and C7. SOFT TISSUES: No masses or calcifications. Lung apices clear. OTHER: No other significant finding. IMPRESSION: HARDWARE IN THE LOWER CERVICAL SPINE. NO INSTABILITY ON FLEXION/EXTENSION. TECHNICAL DOCUMENTATION: JOB ID: [id number] [employer] All Rights Reserved Reading location - IP/workstation name: [email or web address]
== END ==
LOC: RAD 12:27
PROVIDERS: ATTEND Specialist
DX: M54.12 Radiculopathy, cervical region (principal)
CPT/HCPCS: 72040

== ENCOUNTER 2018-01-25 05:14 | Emergency (ER) | payer MEDICARE, OTHER ==
[2018-01-25 05:28] VITALS: BP 189/102
[2018-01-25 05:34] LABS: APPEARANCE,URINE CLEAR; BILIRUBIN,URINE NEGATIVE (NEGATIVE); COLOR,URINE COLORLESS; GLUCOSE, URINE NEGATIVE (NEGATIVE); KETONES,URINE NEGATIVE (NEGATIVE); LEUKOCYTE ESTERASE,URINE NEGATIVE (NEGATIVE); NITRITE,URINE NEGATIVE (NEGATIVE); PROTEIN,URINE NEGATIVE (NEGATIVE); URINE SPECIFIC GRAVITY 1.003; UROBILINOGEN,URINE NEGATIVE mg/dL (<2.0)
[2018-01-25] MEDS ORDERED: NORMAL SALINE 1000 ML 1,000 ML IV ONE (05:45)
[2018-01-25] MEDS ORDERED: ONDANSETRON HCL INJ/PF 4 MG/2 ML SDV IV ONE (05:45)
[2018-01-25] MEDS ORDERED: KETOROLAC TROMETHAMINE INJ/PF 30 MG/1 ML SDV IV ONE (05:45)
--- NOTE | 2018-01-25 05:47 | ER Document Report ---
ED Medical Screen (RME) - General Chief Complaint: Possible Kidney Stone Stated Complaint: FLANK PAIN Time Seen by Provider: 01/25/18 05:41 Notes: 57-year-old male chief complaint of sudden onset sharp left flank pain with nausea, states he does feel improved now but still has pain, history of multiple kidney stones including laser removal. Denies vomiting, hematuria, fever. He reports being on low-dose Coumadin for a port, used to have melanoma and was treated through this port. TRAVEL OUTSIDE OF THE [place] IN LAST 30 DAYS: No - Related Data Allergies/Adverse Reactions: ceftriaxone [From Rocephin] Allergy (Verified 08/29/17 08:16) Past Medical History - Past Medical History Cardiac Medical History: Denies: Hx Coronary Artery Disease, Hx Hypertension Renal/ Medical History: Reports: Hx Kidney Stones. Denies: Hx Peritoneal Dialysis GI Medical History: Reports: Hx Diverticulitis, Hx Gastroesophageal Reflux Disease, Hx Colonoscopy Musculoskeltal Medical History: Reports Hx Arthritis, Reports Hx Musculoskeletal Deformity, Reports Hx Musculoskeletal Trauma Psychiatric Medical History: Reports: Hx Anxiety, Hx Depression Traumatic Medical History: Reports: Hx Fractures, Hx Traumatic Brain Injury Past Surgical History: Reports: Hx Adenoidectomy, Hx Bowel Surgery, Hx Cholecystectomy, Hx Neurologic Surgery - Neck 2, Hx Oral Surgery - Dental surgery, Hx Orthopedic Surgery - shoulder, knee, carpal tunnel, Hx Testicular Surgery - Wire for varicoceles, Hx Tonsillectomy, Other - Removed melanoma tumors from back and lymph nodes, ventral hernia repair an - Immunizations Hx Diphtheria, Pertussis, Tetanus Vaccination: Yes - unknown Physical Exam - Vital signs Vitals: Temp Pulse Resp BP Pulse Ox 97.6 F 60 16 189/102 H 100 01/25/18 05:21 01/25/18 05:21 01/25/18 05:21 01/25/18 05:21 01/25/18 05:21 - General General appearance: Appears well, Alert In distress: None - Abdominal Inspection: Normal Tenderness: Nontender. No: Tender Course - Vital Signs Vital signs: Temp Pulse Resp BP Pulse Ox 97.6 F 60 16 189/102 H 100 01/25/18 05:21 01/25/18 05:21 01/25/18 05:21 01/25/18 05:21 01/25/18 05:21 Doctor's Discharge - Discharge Referrals: ANNALISA KISER MD [Primary Care Provider] - Follow up as needed
[2018-01-25 06:23] LABS: ABSOLUTE BASOPHILS # (AUTO) 0.1 10^3/uL (0.0-0.2); ABSOLUTE EOSINOPHILS # (AUTO) 0.4 10^3/uL (0.0-0.6); ABSOLUTE LYMPHOCYTES (AUTO) 1.9 10^3/uL (0.5-4.7); ABSOLUTE MONOCYTES (AUTO) 0.6 10^3/uL (0.1-1.4); ABSOLUTE NEUT (AUTO) 5.6 10^3/uL (1.7-8.2); BASOPHILS % (AUTO) 0.8 % (0-2); EOSINOPHILS % (AUTO) 4.4 % (0-6); HEMATOCRIT 44.8 % (37.9-51.0); HEMOGLOBIN 15.7 g/dL (13.5-17.0); MEAN CORPUSCULAR VOLUME 83 fl (80-97); MONOCYTES % (AUTO) 7.5 % (3-13); PLATELET COUNT 198 10^3/uL (150-450); RED BLOOD COUNT 5.41 10^6/uL (4.35-5.55); RED CELL DISTRIBUTION WIDTH 13.5 % (11.5-14.0); SEGMENTED NEUTROPHILS % (AUTO) 65.3 % (42-78); TOTAL CELLS COUNTED % (AUTO) 100 %; WHITE BLOOD COUNT 8.6 10^3/uL (4.0-10.5)
--- NOTE | 2018-01-25 06:39 | ER Document Report ---
ED GI/ - General Mode of Arrival: Ambulatory Information source: Patient TRAVEL OUTSIDE OF THE [place] IN LAST 30 DAYS: No <GERARDO FERRERA - Last Filed: 01/25/18 06:55> <FATMATA BRAY - Last Filed: 01/25/18 09:38> - General Chief Complaint: Possible Kidney Stone Stated Complaint: FLANK PAIN Time Seen by Provider: 01/25/18 05:41 Notes: 57-year-old male who presents to the emergency department today with complaints of left-sided flank pain that began around 0230 this morning. Patient states he was awake taking his dogs out when his pain began. Patient has a history of kidney stones with his last one being on October 28. With that stone in September the patient had left hydronephrosis and in March with a previous stone the patient had right hydronephrosis. Patient is on Coumadin. (GERARDO FERRERA) 57-year-old male patient with past history of bilateral renal stones, takes low- dose Coumadin for a Port-A-Cath that was used for treating his melanoma. He was seen here in March 2017 with right hydronephrosis, and on September 2017 with left hydronephrosis. He feels confident he did pass the stone from his September visit. He is now here with sudden onset this morning of left-sided flank pain and states it feels like another kidney stone. (FATMATA BRAY) - Related Data Allergies/Adverse Reactions: ceftriaxone [From Rocephin] Allergy (Verified 08/29/17 08:16) Past Medical History - General Information source: Patient - Social History Smoking Status: Never Smoker Cigarette use (# per day): No Frequency of alcohol use: None Drug Abuse: None Lives with: Family Family History: Reviewed & Not Pertinent, Arthritis Patient has suicidal ideation: No Patient has homicidal ideation: No Renal/ Medical History: Reports: Hx Kidney Stones GI Medical History: Reports: Hx Diverticulitis, Hx Gastroesophageal Reflux Disease, Hx Colonoscopy Musculoskeletal Medical History: Reports Hx Arthritis, Reports Hx Musculoskeletal Deformity, Reports Hx Musculoskeletal Trauma Psychiatric Medical History: Reports: Hx Anxiety, Hx Depression Traumatic Medical History: Reports: Hx Fractures, Hx Traumatic Brain Injury Past Surgical History: Reports: Hx Adenoidectomy, Hx Bowel Surgery, Hx Cholecystectomy, Hx Neurologic Surgery - Neck 2, Hx Oral Surgery - Dental surgery, Hx Orthopedic Surgery - shoulder, knee, carpal tunnel, Hx Testicular Surgery - Wire for varicoceles, Hx Tonsillectomy, Other - Removed melanoma tumors from back and lymph nodes, ventral hernia repair an - Immunizations Hx Diphtheria, Pertussis, Tetanus Vaccination: Yes - unknown <GERARDO FERRERA - Last Filed: 01/25/18 06:55> Review of Systems - Review of Systems Constitutional: No symptoms reported EENT: No symptoms reported Cardiovascular: No symptoms reported Respiratory: No symptoms reported Gastrointestinal: No symptoms reported Genitourinary: See HPI, Flank pain - left Male Genitourinary: No symptoms reported Musculoskeletal: No symptoms reported Skin: No symptoms reported Hematologic/Lymphatic: No symptoms reported Neurological/Psychological: No symptoms reported -: Yes All other systems reviewed and negative <GERARDO FERRERA - Last Filed: 01/25/18 06:55> Physical Exam <GERARDO FERRERA - Last Filed: 01/25/18 06:55> <FATMATA BRAY - Last Filed: 01/25/18 09:38> - Vital signs Vitals: Temp Pulse Resp BP Pulse Ox 97.6 F 60 16 189/102 H 100 01/25/18 05:21 01/25/18 05:21 01/25/18 05:21 01/25/18 05:21 01/25/18 05:21 - Notes Notes: Physical Exam: General: Alert, appears slightly uncomfortable, states he feels much better now after toradol. HEENT: Normocephalic. Atraumatic. PERRL. Extraocular movements intact. Oropharynx clear. Neck: Supple. Non-tender. Respiratory: No respiratory distress. Clear and equal breath sounds bilaterally. Cardiovascular: Regular rate and rhythm. Abdominal: Normal Inspection. Non-tender. No distension. Normal Bowel Sounds. Back: Left lower flank pain, positive CVA percussion tenderness on the left. No deformity or step off. Extremities: Moves all four extremities. Upper extremities: Normal inspection. Normal ROM. Lower extremities: Normal inspection. No edema. Normal ROM. Neurological: Normal cognition. AAOx4. Normal speech. Psychological: Normal affect. Normal Mood. Skin: Warm. Dry. Normal color. (GERARDO FERRERA) Course - Laboratory Result Diagrams: 01/25/18 06:15 01/25/18 06:15 <GERARDO FERRERA - Last Filed: 01/25/18 06:55> - Laboratory Result Diagrams: 01/25/18 06:15 01/25/18 06:15 <FATMATA BRAY - Last Filed: 01/25/18 09:38> - Re-evaluation Re-evalutation: 01/25/18 08:57 The patient did have right hydronephrosis in March 2017 related to a distal ureteral stone. He had left sided hydronephrosis without stone seen on 2017 and suspected there was a stone at the [facility]. I feel he should have a CT scan with contrast since he may have persistent hydronephrosis that is not related to kidney stone. There were no stones seen less than 3 months ago when he had a CT scan showing the left-sided hydronephrosis which is either persistent or recurrent. He does have a history of malignant melanoma, and had had renal involvement in the past. He is scheduled to have a PET scan today at 3 PM so doing a contrasted study now is problematic. I discussed this with the radiologist and she stated that we should probably wait and do the contrasted CT of the abdomen and pelvis after the PET scan is done this afternoon. He states that he does have hydrocodone that he can take for pain if necessary. He is followed by [facility] urology. (FATMATA BRAY) - Vital Signs Vital signs: Temp Pulse Resp BP Pulse Ox 97.6 F 60 16 189/102 H 100 01/25/18 05:21 01/25/18 05:21 01/25/18 05:21 01/25/18 05:21 01/25/18 05:21 - Laboratory Laboratory results interpreted by me: 01/25/18 06:15 BUN 21 H Creatinine 1.28 H Est GFR (Non-Af Amer) 58 L Discharge <GERARDO FERRERA - Last Filed: 01/25/18 06:55> <FATMATA BRAY - Last Filed: 01/25/18 09:38> - Discharge Clinical Impression: Hydronephrosis of left kidney, Acute left flank pain Condition: Stable Disposition: HOME, SELF-CARE Additional Instructions: Your left flank pain is due to the left kidney being obstructed. This is similar to what you had in September of this year. At this time we cannot tell if there is a mass or possible crossing blood vessel compressing the ureter preventing the urine from leaving the kidney, or if it is a stone in the renal pelvis causing the obstruction. You will be given a request form for an outpatient contrasted CT scan of the abdomen and pelvis to be done after your PET scan is done. You should follow- up with your urologist this week, call Friday morning for an appointment. Your blood pressure was elevated today. Reviewing the previous emergency room visits, it seems that your blood pressure is always elevated. You should follow -up with your primary care provider this week to recheck your blood pressure and see if you may need medication to help control it. RETURN TO THE EMERGENCY ROOM IF ANY NEW OR WORSENING SYMPTOMS. Forms: Follow-Up Radiology Testing Referrals: ANNALISA KISER MD [ACTIVE STAFF] - Follow up as needed [facility] [Provider Group] - Follow up in 3-5 days Scribe Attestation: 01/25/18 06:54 I personally performed the services described in the documentation, reviewed and edited the documentation which was dictated to the scribe in my presence, and it accurately records my words and actions. (FATMATA BRAY) Scribe Documentation - Scribe Written by Itzel:: Itzel Ruiz, 01/25/2018 [id number] acting as scribe for :: Will <GERARDO FERRERA - Last Filed: 01/25/18 06:55>
[2018-01-25 06:44] LABS: ANION GAP 10 (5-19); BLOOD UREA NITROGEN 21 mg/dL (7-20); CALCIUM 9.3 mg/dL (8.4-10.2); CARBON DIOXIDE 27 mmol/L (22-30); CHLORIDE 103 mmol/L (98-107); GLUCOSE 100 mg/dL (75-110); POTASSIUM 4.2 mmol/L (3.6-5.0); SODIUM 140.2 mmol/L (137-145)
[2018-01-25 06:49] LABS: INTERNATIONAL RATION (INR) 0.91; PROTHROMBIN TIME 12.7 SEC (11.4-15.4)
--- NOTE | 2018-01-25 07:55 | RADIOLOGY REPORT (SQ) ---
EXAM DESCRIPTION: US RETROPERITONEUM COMPLETED DATE/TME: 01/25/2018 06:55 CLINICAL HISTORY: 57 years, Male, L flank pain, hx of kidney stones COMPARISON: None. TECHNIQUE: Grayscale and Doppler images of the retroperitoneum LIMITATIONS: None. FINDINGS: Right kidney: Length: 13.6 x 5.2 x 6.3 cm. Hydronephrosis: Negative. Echogenicity: Within normal limits. Other: No definite stone is identified. Left kidney: Length: 12.3 x 5.7 x 5.5 cm. Hydronephrosis: Moderate with the renal pelvis measuring up to 4.7 cm in diameter Echogenicity: Within normal limits. Other: No definite stone is identified Urinary bladder: Lumen: Unremarkable. Other: None. IMPRESSION: Moderate left-sided hydronephrosis. 2011 [employer]- All Rights Reserved
== END 2018-01-25 10:17 | disposition home or self-care (01) ==
LOC: ER 05:14
DX: N13.30 Unspecified hydronephrosis (principal); R10.9 Unspecified abdominal pain; C43.9 Malignant melanoma of skin, unspecified; Z87.442 Personal history of urinary calculi; Z79.01 Long term (current) use of anticoagulants; Z88.1 Allergy status to other antibiotic agents
CPT/HCPCS: 36591; 99284; 96361; 96374; 96375; 36415; 85025; 85610; 80048; 81001; 76770; 78816; 74177; A9552; J1885; J2405; J7030

== ENCOUNTER → 2018-01-25 | Outpatient (CLI) | payer MEDICARE, OTHER ==
--- NOTE | 2018-01-25 18:01 | RADIOLOGY REPORT (SQ) ---
EXAM DESCRIPTION: CT ABD/PELVIS WITH IV ONLY COMPLETED DATE/TIME: 01/25/2018 5:23 pm REASON FOR STUDY: RECURRENT LEFT HYDRONEPHROSIS C79.9 SECONDARY MALIGNANT NEOPLASM OF UNSPECIFIED S ITE R10.32 LEFT LOWER QUADRANT PAIN history of metastatic melanoma. COMPARISON: CT abdomen and pelvis 10/28/2017. CT chest/abdomen/ pelvis 11/20/2016. TECHNIQUE: CT scan of the abdomen and pelvis performed using helical scanning technique with dynamic intravenous contrast injection. No oral contrast. Images reviewed with lung, soft tissue, and bone windows. Reconstructed coronal and sagittal MPR images reviewed. Delayed images for evaluation of the urinary system also acquired. All images stored on PACS. All CT scanners at this facility use dose modulation, iterative reconstruction, and/or weight based d osing when appropriate to reduce radiation dose to as low as reasonably achievable (ALARA). [facility]: Dose Right [facility]: CareDose [facility]: Dose Right [facility]: Teradose 4D [facility]: [email or web address] CONTRAST TYPE AND DOSE: contrast/concentration: Isovue 350.00 mg/ml; Total Contrast Delivered: 99.0 ml; Total Saline Delivered: 62.0 ml RENAL FUNCTION: Creatinine 1.28 RADIATION DOSE: CT Rad equipment meets quality standard of care and radiation dose reduction techniq ues were employed. CTDIvol: 17.6 - 20.6 mGy. DLP: 3363 mGy-cm.. LIMITATIONS: None. FINDINGS: LOWER CHEST: No consolidation or pleural effusion. LIVER: Diffuse decreased attenuation, most consistent with fatty infiltration. No masses. No dilated ducts. SPLEEN: Normal size. No focal lesions. PANCREAS: No significant calcifications. No adjacent inflammation or peripancreatic fluid collections . Pancreatic duct not dilated. GALLBLADDER: Surgically absent. ADRENAL GLANDS: No significant masses or asymmetry. RIGHT KIDNEY AND URETER: No solid masses. No significant calcifications. No hydronephrosis or hyd roureter. LEFT KIDNEY AND URETER: No solid masses. No significant calcifications. There is mild left hydron ephrosis. There is an 8 mm (887 Hounsfield units) calculus at the distal left ureter, in the pelvis. AORTA AND VESSELS: No abdominal aortic aneurysm RETROPERITONEUM: No retroperitoneal adenopathy, hemorrhage or masses. Surgical clips are seen at the retroperitoneum. BOWEL AND PERITONEAL CAVITY: No dilated bowel loops or inflammatory changes. No free fluid or free ai r. Postsurgical changes are seen at the sigmoid colon. There is colonic diverticulosis with no CT e vidence for acute diverticulitis. APPENDIX: Normal. PELVIS: No mass. No free fluid. Decompressed bladder. ABDOMINAL WALL: Small fat containing ventral hernia superior to the umbilicus. There are small fat c ontaining umbilical hernias. BONES: No significant or acute findings. IMPRESSION: 1. 8 mm calculus at the distal left ureter with mild left hydronephrosis. 2. Fatty infiltration of the liver. 3. Colonic diverticulosis. TECHNICAL DOCUMENTATION: JOB ID: [id number] Quality ID # [id number]: Final reports with documentation of one or more dose reduction techniques (e.g., Au tomated exposure control, adjustment of the mA and/or kV according to patient size, use of iterative reconstruction technique) 2010 [employer]- All Rights Reserved Reading location - IP/workstation name: [email or web address]
--- NOTE | 2018-01-26 12:05 | RADIOLOGY REPORT (SQ) ---
EXAM DESCRIPTION: PET CT WHOLE BODY COMPLETED DATE/TIME: 01/25/2018 8:06 pm REASON FOR STUDY: MYELOMA C79.9 SECONDARY MALIGNANT NEOPLASM OF UNSPECIFIED SITE R10.32 LEFT LOWER QUADRANT PAIN COMPARISON: 02/18/2017 and 06/14/2016. RADIONUCLIDE AND DOSE: 10 mCi F18 FDG The route of agent administration: Intravenous FASTING BLOOD SUGAR: 81 mg/dl CONTRAST TYPE AND DOSE: No CT contrast given. TECHNIQUE: Blood glucose level was verified. Above dose of FDG was injected intravenously. 2-D seg mented attenuation correction images were obtained through the entire body. Noncontrast CT images we re obtained for attenuation correction and fusion with emission images. CT images were performed wit hout oral or intravenous contrast and are not sensitive for parenchymal lesions. A series of overlap ping emission PET images were obtained. Images reviewed and manipulated at independent work station by the radiologist. Images stored on PACS. LIMITATIONS: None. FINDINGS: HEAD AND NECK: No areas of abnormal metabolic activity in the soft tissues of the head and neck. Incidental activity in the vocal cords secondary to speaking. CHEST: No areas of abnormal metabolic activity in the chest. ABDOMEN AND PELVIS: No areas of abnormal metabolic activity in the abdomen or pelvis. Expected physi ologic activity is present in the genitourinary system and bowel. LOWER EXTREMITIES: No areas of abnormal metabolic activity in the soft tissues of the lower extremiti es. BONES: No abnormal metabolic activity in the visualized skeleton. ADDITIONAL CT FINDINGS: Calculus in the distal left ureter with mild left hydronephrosis and hydroure ter. Embolization coils in the gonadal veins. No additional significant findings on the noncontrast CT images. OTHER: No other significant findings. Background blood pool activity mean SUV 1.62. Background live r activity mean SUV 1.78. IMPRESSION: 1. UNREMARKABLE PET SCAN. NO AREAS OF ABNORMAL METABOLIC ACTIVITY. 2. CALCULUS IN THE DISTAL LEFT URETER WITH MILD LEFT HYDRONEPHROSIS AND HYDROURETER. THIS WAS EVALUA TREVIN AND REPORTED WITH A SEPARATE DIAGNOSTIC CT OF THE ABDOMEN AND PELVIS. TECHNICAL DOCUMENTATION: JOB ID: [id number] [employer]- All Rights Reserved Reading location - IP/workstation name: [email or web address]
== END ==
LOC: RAD 14:40
PROVIDERS: ATTEND Internal Medicine Medical Oncology
DX: C79.9 Secondary malignant neoplasm of unspecified site (principal); N13.2 Hydronephrosis with renal and ureteral calculous obstruction; R10.32 Left lower quadrant pain
CPT/HCPCS: 78816; 74177; A9552

== ENCOUNTER → 2018-02-02 | Outpatient (CLI) | payer MEDICARE, OTHER ==
--- NOTE | 2018-02-02 13:15 | EKG REPORT ---
SEVERITY:- OTHERWISE NORMAL ECG - SINUS RHYTHM BORDERLINE LEFT AXIS DEVIATION : Confirmed by: Rosendo Coreas MD 02-Feb-2018 13:14:15
== END ==
LOC: OD 12:11
PROVIDERS: ATTEND Urology
DX: N20.0 Calculus of kidney (principal); N20.1 Calculus of ureter
CPT/HCPCS: 93005; 93010

== ENCOUNTER → 2018-02-06 | Outpatient (CLI) | payer MEDICARE, OTHER ==
--- NOTE | 2018-02-06 13:06 | RADIOLOGY REPORT (SQ) ---
EXAM DESCRIPTION: SHOULDER LEFT 2 OR MORE VIEWS COMPLETED DATE/TIME: 02/06/2018 9:36 am REASON FOR STUDY: LEFT SHOULDER PAIN (M25.512) M25.512 PAIN IN LEFT SHOULDER COMPARISON: None. NUMBER OF VIEWS: Three views. TECHNIQUE: Internal rotation, external rotation, and Y view images acquired of the left shoulder. LIMITATIONS: None. FINDINGS: MINERALIZATION: Normal. BONES: No acute fracture or dislocation. No worrisome bone lesions. The distal left clavicle has be en resected with remaining distal clavicle clavicle appearing slightly superiorly positioned relative to the acromion. JOINTS: No dislocation. VISUALIZED LUNGS AND RIBS: No pneumothorax. No rib fracture. SOFT TISSUES: PICC catheter is noted in place. OTHER: No other significant finding. IMPRESSION: Status post resection of the distal left clavicle with the remaining distal clavicle pillo ng slightly superiorly positioned. TECHNICAL DOCUMENTATION: JOB ID: [id number] [employer]- All Rights Reserved Reading location - IP/workstation name: [email or web address]
== END ==
LOC: RAD 09:15
PROVIDERS: ATTEND Family Medicine
DX: M25.512 Pain in left shoulder (principal)

== ENCOUNTER 2018-02-09 20:15 | Emergency (ER) | payer MEDICARE, OTHER ==
[2018-02-09] MEDS ORDERED: ONDANSETRON HCL INJ/PF 4 MG/2 ML SDV IV ONE (21:14)
[2018-02-09] MEDS ORDERED: RINGERS SOLUTION,LACTATED 1,000 ML IV ONE (21:14)
[2018-02-09] MEDS ORDERED: HYDROMORPHONE HCL INJ/PF 2 MG/ML AMPULE IV ONE ×2 (21:14→22:51)
[2018-02-09] MEDS ORDERED: KETOROLAC TROMETHAMINE INJ/PF 30 MG/1 ML SDV IV ONE ×2 (21:15→23:01)
--- NOTE | 2018-02-09 21:16 | ER Document Report ---
ED General - General Chief Complaint: Flank Pain Stated Complaint: LEFT FLANK PAIN Time Seen by Provider: 02/09/18 21:13 Mode of Arrival: Ambulatory Information source: Patient, Relative, [facility] Records Notes: 57-year-old male with depression, traumatic brain injury, reflux, melanoma (in remission), recent diagnosis of an 8 mm left distal ureter calculus presents with complaint of left flank pain that started this morning after his stent was removed by his urologist Dr. Bunch. Patient has been taking his oxycodone without relief of pain. He has had nausea without vomiting. Patient has had persistent hematuria since that removal this morning. They did contact the on- call physician for Dr. Bunch who recommended being seen in the emergency department for IV fluids, pain medication. Patient denies any fever, chills, chest pain, abdominal pain, dizziness. TRAVEL OUTSIDE OF THE [place] IN LAST 30 DAYS: No - HPI Onset: This afternoon Onset/Duration: Gradual, Persistent, Worse Quality of pain: Throbbing Severity: Moderate Associated symptoms: Body/muscle aches, Nausea. denies: Chest pain, Diarrhea, Fever, Vomiting, Shortness of breath Exacerbated by: Movement, Walking Relieved by: Denies Similar symptoms previously: Yes Recently seen / treated by doctor: Yes - This morning by urology - Related Data Allergies/Adverse Reactions: ceftriaxone [From Rocephin] Allergy (Verified 08/29/17 08:16) Past Medical History - General Information source: Patient, [facility] Records - Social History Smoking Status: Never Smoker Frequency of alcohol use: None Drug Abuse: None Lives with: Spouse/Significant other Family History: Reviewed & Not Pertinent, Arthritis Patient has suicidal ideation: No Patient has homicidal ideation: No - Past Medical History Cardiac Medical History: Denies: Hx Coronary Artery Disease, Hx Hypertension Renal/ Medical History: Reports: Hx Kidney Stones. Denies: Hx Peritoneal Dialysis GI Medical History: Reports: Hx Diverticulitis, Hx Gastroesophageal Reflux Disease, Hx Colonoscopy Musculoskeletal Medical History: Reports Hx Arthritis, Reports Hx Musculoskeletal Deformity, Reports Hx Musculoskeletal Trauma Psychiatric Medical History: Reports: Hx Anxiety, Hx Depression Traumatic Medical History: Reports: Hx Fractures, Hx Traumatic Brain Injury Past Surgical History: Reports: Hx Adenoidectomy, Hx Bowel Surgery, Hx Cholecystectomy, Hx Neurologic Surgery - Neck 2, Hx Oral Surgery - Dental surgery, Hx Orthopedic Surgery - shoulder, knee, carpal tunnel, Hx Testicular Surgery - Wire for varicoceles, Hx Tonsillectomy, Other - Removed melanoma tumors from back and lymph nodes, ventral hernia repair an - Immunizations Hx Diphtheria, Pertussis, Tetanus Vaccination: Yes - unknown Review of Systems - Review of Systems Notes: REVIEW OF SYSTEMS: CONSTITUTIONAL : Denies fever, chills, or sweats. Denies recent illness. Denies weight loss, recent hospitalizations. EENT: Denies visual changes, eye pain. Denies sore throat, oral lesions, difficulty swallowing. CARDIOVASCULAR: Denies chest pain. Denies palpitations. Denies lower extremity edema. RESPIRATORY: Denies cough. Denies shortness of breath, wheezing. GASTROINTESTINAL: Denies abdominal pain or distention. Denies nausea, vomiting , or diarrhea. Denies blood in vomitus, stools, or per rectum. Denies black, tarry stools. Denies constipation. GENITOURINARY: Denies painful urination, frequency, testicular pain or penile discharge. MUSCULOSKELETAL: Denies neck pain or stiffness. Denies joint pain or swelling. SKIN: Denies rash, lesions or sores. HEMATOLOGIC : Denies easy bruising or bleeding. LYMPHATIC: Denies swollen glands. NEUROLOGICAL: Denies confusion or altered mental status. Denies loss of consciousness. Denies dizziness or lightheadedness. Denies headache. Denies weakness or paralysis. Denies problems difficulty with ambulation, slurred speech. Denies sensory loss, numbness, or tingling. Denies seizures. PSYCHIATRIC: Denies anxiety or stress. Denies depression, suicidal ideation, or Physical Exam - Vital signs Vitals: Temp Pulse Resp BP Pulse Ox 98.3 F 62 16 164/85 H 99 02/09/18 20:27 02/09/18 20:27 02/09/18 20:27 02/09/18 20:27 02/09/18 20:27 Interpretation: Hypertensive - Notes Notes: PHYSICAL EXAMINATION: GENERAL: Well-appearing, well-nourished and in no acute distress. HEAD: Atraumatic, normocephalic. EYES: Pupils equal round and reactive to light, extraocular movements intact, sclera anicteric, conjunctiva are normal. ENT: Nares patent, oropharynx clear without exudates. Moist mucous membranes. NECK: Normal range of motion, supple without lymphadenopathy LUNGS: Breath sounds clear to auscultation bilaterally and equal. No wheezes rales or rhonchi. HEART: Regular rate and rhythm without murmurs ABDOMEN: Soft, nontender, nondistended abdomen. No guarding, no rebound. No masses appreciated. Left CVA tenderness Musculoskeletal: Normal range of motion, no pitting or edema. No cyanosis. NEUROLOGICAL: Cranial nerves grossly intact. Normal speech, normal gait. Normal sensory, motor exams PSYCH: Normal mood, normal affect. SKIN: Warm, Dry, normal turgor, no rashes or lesions noted. Course - Re-evaluation Re-evalutation: Laboratory 02/09/18 02/09/18 02/09/18 21:02 21:02 23:21 WBC 8.6 RBC 5.29 Hgb 15.4 Hct 43.5 MCV 82 MCH 29.1 MCHC 35.3 RDW 13.9 Plt Count 217 Seg Neutrophils % 65.2 Lymphocytes % 22.8 Monocytes % 6.7 Eosinophils % 4.4 Basophils % 0.9 Absolute Neutrophils 5.6 Absolute Lymphocytes 2.0 Absolute Monocytes 0.6 Absolute Eosinophils 0.4 Absolute Basophils 0.1 Sodium 141.1 Potassium 4.2 Chloride 104 Carbon Dioxide 23 Anion Gap 14 BUN 24 H Creatinine 1.29 H Est GFR ( Amer) > 60 Est GFR (Non-Af Amer) 58 L Glucose 124 H Calcium 9.3 Total Bilirubin 0.7 Direct Bilirubin 0.3 Neonat Total Bilirubin Not Reportable Neonat Direct Bilirubin Not Reportable Neonat Indirect Bili Not Reportable AST 36 ALT 50 Alkaline Phosphatase 51 Total Protein 7.0 Albumin 4.1 Lipase 41.7 Urine Color YELLOW Urine Appearance CLOUDY Urine pH 5.0 Ur Specific [place] 1.016 Urine Protein >=500 H Urine Glucose (UA) NEGATIVE Urine Ketones NEGATIVE Urine Blood LARGE H Urine Nitrite NEGATIVE Urine Bilirubin NEGATIVE Urine Urobilinogen NEGATIVE Ur Leukocyte Esterase NEGATIVE Urine WBC (Auto) 35 Urine RBC (Auto) >182 U Hyaline Cast (Auto) 3 Urine Mucus (Auto) MANY Urine Ascorbic Acid NEGATIVE Renal Ultrasound 02/09/18 21:13 IMPRESSION: Allowing for differences in technique, stable prominence to the renal pelves bilaterally likely at least in part relating to extrarenal pelvis formation. Remainder unremarkable 2010 [employer]- All Rights Reserved 57-year-old male with depression, traumatic brain injury, reflux, melanoma (in remission), recent diagnosis of an 8 mm left distal ureter calculus presents with complaint of left flank pain that started this morning after his stent was removed by his urologist Dr. Bunch. Patient has been taking his oxycodone without relief of pain. He has had nausea without vomiting. Patient has had persistent hematuria since that removal this morning. They did contact the on- call physician for Dr. Bunch who recommended being seen in the emergency department for IV fluids, pain medication. CBC, CMP are within normal limits. Urinalysis significant for blood which is to be expected after stent removal that occurred this morning. No evidence of infection. 02/09/18 23:22 Patient reevaluated and states that his pain has improved. He is declining additional Dilaudid and would like additional Toradol. Patient is eating and drinking and appears well. Awaiting urinalysis. 02/10/18 00:13 Patient reevaluated again and states that his pain and nausea have completely resolved. Urinalysis does not show any evidence of infection. Patient has had no further emesis. He states that his urologist is usually very easy to get into and will call him first thing in the morning. Patient provided copies of his imaging and lab work that was performed today. Toradol prescribed for home. Patient was evaluated and treated as appropriate for the patient's presenting symptoms and complaint, with consideration of any critical or life threatening conditions that may be associated with their obtained history and exam as noted above. All results were discussed with patient and his . Patient provided the opportunity to ask questions, and express concerns. Patient was educated on treatments based on their presumed diagnosis as noted above. At this time we will discharge the patient with return precautions and follow-up recommendations. Verbal discharge instructions given a the bedside. Medication warnings reviewed. Patient is in agreement with this plan and has verbalized understanding of return precautions. After careful consideration I feel that that patient can be safely discharged from the emergency department, they were advised to followup with a primary care physician in 2-3 days. Dictation on this chart was performed using voice recognition software and may result in unintended grammatical, spelling, syntax or errors. 02/10/18 03:31 02/10/18 03:31 02/10/18 03:38 - Vital Signs Vital signs: Temp Pulse Resp BP Pulse Ox 97.8 F 62 14 145/84 H 95 02/10/18 00:28 02/09/18 20:27 02/10/18 00:01 02/10/18 00:00 02/10/18 00:01 - Laboratory Result Diagrams: 02/09/18 21:02 02/09/18 21:02 Laboratory results interpreted by me: 02/09/18 02/09/18 21:02 23:21 BUN 24 H Creatinine 1.29 H Est GFR (Non-Af Amer) 58 L Glucose 124 H Urine Protein >=500 H Urine Blood LARGE H - Diagnostic Test Radiology reviewed: Image reviewed, Reports reviewed Discharge - Discharge Clinical Impression: Left flank pain, History of kidney stones, Elevated blood pressure reading Hematuria Qualifiers: Hematuria type: unspecified type Qualified Code(s): R31.9 - Hematuria, unspecified Condition: Good Disposition: HOME, SELF-CARE Instructions: Flank Pain ([facility]), Hematuria ([facility]), Kidney Stone ([facility]) Additional Instructions: Please follow-up with your urologist as soon as possible. Follow up with your [id number] hours for further care or return to the ED IMMEDIATELY if symptoms worsen or you have any concerns. If you cannot afford to follow up with your primary care physician a list of low cost clinics have been provided at the end of your discharge papers as well. Most prescribed medications have multiple side effects. The safest thing to do is when filling your prescription speak to your pharmacist regarding possible interactions with your normal home medications and over the counter medications such as Ibuprofen, Tylenol, Benadryl. If you experience any symptoms that cause you discomfort or concern you should discontinue the medication immediately and return to the emergency room or call your primary care physician. Prescriptions: Ketorolac Tromethamine [Toradol 10 mg Tablet] 10 mg PO Q6HP PRN #12 tablet PRN Reason: Referrals: DUTCH BUNCH MD [NO LOCAL MD] - Follow up tomorrow
[2018-02-09 21:22] LABS: ABSOLUTE BASOPHILS # (AUTO) 0.1 10^3/uL (0.0-0.2); ABSOLUTE EOSINOPHILS # (AUTO) 0.4 10^3/uL (0.0-0.6); ABSOLUTE MONOCYTES (AUTO) 0.6 10^3/uL (0.1-1.4); ABSOLUTE NEUT (AUTO) 5.6 10^3/uL (1.7-8.2); BASOPHILS % (AUTO) 0.9 % (0-2); EOSINOPHILS % (AUTO) 4.4 % (0-6); HEMATOCRIT 43.5 % (37.9-51.0); HEMOGLOBIN 15.4 g/dL (13.5-17.0); LYMPHOCYTES % (AUTO) 22.8 % (13-45); MEAN CORPUSCULAR HEMOGLOBIN 29.1 pg (27.0-33.4); MEAN CORPUSCULAR HGB CONC 35.3 g/dL (32.0-36.0); MEAN CORPUSCULAR VOLUME 82 fl (80-97); MONOCYTES % (AUTO) 6.7 % (3-13); PLATELET COUNT 217 10^3/uL (150-450); RED BLOOD COUNT 5.29 10^6/uL (4.35-5.55); RED CELL DISTRIBUTION WIDTH 13.9 % (11.5-14.0); SEGMENTED NEUTROPHILS % (AUTO) 65.2 % (42-78); TOTAL CELLS COUNTED % (AUTO) 100 %; WHITE BLOOD COUNT 8.6 10^3/uL (4.0-10.5)
[2018-02-09 21:43] LABS: ALANINE AMINOTRANSFERASE 50 U/L (21-72); ALBUMIN 4.1 g/dL (3.5-5.0); ALKALINE PHOSPHATASE 51 U/L (38-126); ANION GAP 14 (5-19); ASPARTATE AMINO TRANSFERASE 36 U/L (17-59); BILIRUBIN,DIRECT 0.3 mg/dL (0.0-0.4); BILIRUBIN,TOTAL 0.7 mg/dL (0.2-1.3); BLOOD UREA NITROGEN 24 mg/dL (7-20); CALCIUM 9.3 mg/dL (8.4-10.2); CARBON DIOXIDE 23 mmol/L (22-30); CHLORIDE 104 mmol/L (98-107); GLUCOSE 124 mg/dL (75-110); LIPASE 41.7 U/L (23-300); POTASSIUM 4.2 mmol/L (3.6-5.0); SODIUM 141.1 mmol/L (137-145)
[2018-02-09] MEDS ORDERED: METOCLOPRAMIDE HCL INJ/PF 10 MG/2 ML SDV IV ONE (21:57)
--- NOTE | 2018-02-09 22:56 | RADIOLOGY REPORT (SQ) ---
EXAM DESCRIPTION: US RETROPERITONEUM COMPLETED DATE/TME: 02/09/2018 21:13 CLINICAL HISTORY: 57 years, Male, l flank pain stent removed today COMPARISON: CT 01/25/2018 TECHNIQUE: Transverse and longitudinal sonographic images of the kidneys and urinary bladder LIMITATIONS: None. FINDINGS: Maximal diameter of the right kidney is 11.2 cm, of the left 12.5 cm. Visualized portions of the abdominal aorta are unremarkable. No renal calculus, or mass. Prominence of the left renal pelvis may in part relate to extrarenal pelvis and/or parapelvic cyst formation when correlating with prior CT scan. The cortical medullary differentiation is preserved bilaterally. Equivocal/mild prominence of the right renal pelvis as well, also noted on prior CT. IMPRESSION: Allowing for differences in technique, stable prominence to the renal pelves bilaterally likely at least in part relating to extrarenal pelvis formation. Remainder unremarkable 2010 [employer]- All Rights Reserved
[2018-02-09 23:47] LABS: APPEARANCE,URINE CLOUDY; BILIRUBIN,URINE NEGATIVE (NEGATIVE); COLOR,URINE YELLOW; GLUCOSE, URINE NEGATIVE (NEGATIVE); KETONES,URINE NEGATIVE (NEGATIVE); LEUKOCYTE ESTERASE,URINE NEGATIVE (NEGATIVE); NITRITE,URINE NEGATIVE (NEGATIVE); PROTEIN,URINE >=500 mg/dL (NEGATIVE); URINE SPECIFIC GRAVITY 1.016; UROBILINOGEN,URINE NEGATIVE mg/dL (<2.0)
[2018-02-10 00:29] VITALS: BP 145/84
== END 2018-02-10 00:29 | disposition home or self-care (01) ==
LOC: ER 20:15
DX: R03.0 Elevated blood-pressure reading, without diagnosis of hypertension (principal); R31.9 Hematuria, unspecified; R10.9 Unspecified abdominal pain; M79.10 Myalgia, unspecified site; R11.0 Nausea; Z87.442 Personal history of urinary calculi; Z90.49 Acquired absence of other specified parts of digestive tract; Z87.820 Personal history of traumatic brain injury
CPT/HCPCS: 96376; 99284; 96361; 96374; 96375; 36415; 83690; 85025; 80053; 81001; 76770; J1885; J2765; J1170; J2405; J7120

== ENCOUNTER → 2018-02-25 | Outpatient (CLI) | payer MEDICARE, OTHER ==
--- NOTE | 2018-02-25 08:38 | RADIOLOGY REPORT (SQ) ---
EXAM DESCRIPTION: CERV SP 3 VIEW OR LESS COMPLETED DATE/TIME: 02/25/2018 8:21 am REASON FOR STUDY: CERVICAL RADICULOPATHY (M54.12) M54.12 RADICULOPATHY, CERVICAL REGION COMPARISON: CT cervical spine 07/31/2017 MRI cervical spine 08/16/2017 Cervical spine flexion extension radiographs 12/26/2017 NUMBER OF VIEWS: Lateral flexion and extension cervical spine films two views TECHNIQUE: Lateral flexion and extension cervical spine films two views LIMITATIONS: None. FINDINGS: MINERALIZATION: Normal. ALIGNMENT: Anatomic. No instability on flexion/extension. VERTEBRAE: Vertebral bodies of normal height. DISCS AND HARDWARE: Post fusion from C5 through C7 low lung with an anterior fixation plate, and meta llic disc spacer at C5-6. No lucency around the hardware worrisome for loosening SOFT TISSUES: No masses or calcifications. Lung apices clear. No prevertebral soft tissue swelling OTHER: No other significant finding. IMPRESSION: Lower cervical fusion with hardware. No instability. TECHNICAL DOCUMENTATION: JOB ID: [id number] [employer]- All Rights Reserved Reading location - IP/workstation name: [email or web address]
== END ==
LOC: RAD 07:46
PROVIDERS: ATTEND Specialist
DX: M54.12 Radiculopathy, cervical region (principal)
CPT/HCPCS: 72040

== ENCOUNTER → 2018-03-11 | Outpatient (CLI) | payer MEDICARE, OTHER ==
--- NOTE | 2018-03-11 09:13 | RADIOLOGY REPORT (SQ) ---
EXAM DESCRIPTION: U/S RETROPERITON (RENAL/AORTA) COMPLETED DATE/TIME: 03/11/2018 8:38 am REASON FOR STUDY: CALC OF URETER N20.1 CALCULUS OF URETER COMPARISON: Renal ultrasound dated 02/09/[address] scan dated 01/25/2018 TECHNIQUE: Dynamic and static grayscale images acquired of the kidneys and bladder and recorded on P ACS. Additional selected color Doppler and spectral images recorded. LIMITATIONS: None. FINDINGS: RIGHT KIDNEY: 11.9 cm in length. Normal echogenicity. No solid or suspicious masses. No hydronephrosis. No calcifications. LEFT KIDNEY: 11.4 cm in length. Normal echogenicity. No solid or suspicious masses. There is d ilatation of the left renal pelvis measuring 2.2 cm. No calcifications. BLADDER: No masses. OTHER FINDINGS: No other significant finding. IMPRESSION: Hydronephrosis on the left as noted above. No other significant renal abnormalities wer e identified. TECHNICAL DOCUMENTATION: JOB ID: [id number] [employer]- All Rights Reserved Reading location - IP/workstation name: [email or web address]
== END ==
LOC: RAD 07:39
PROVIDERS: ATTEND Urology
DX: N20.1 Calculus of ureter (principal); N13.30 Unspecified hydronephrosis
CPT/HCPCS: 76770

== ENCOUNTER → 2018-03-17 | Outpatient (CLI) | payer MEDICARE, OTHER ==
--- NOTE | 2018-03-17 08:31 | RADIOLOGY REPORT (SQ) ---
EXAM DESCRIPTION: U/S ABDOMEN LTD W/DOPPLER COMPLETED DATE/TIME: 03/17/2018 7:47 am REASON FOR STUDY: VENTRAL HERNIA W/O OBSTRUCTION OF GANGRENE (K43.9) K43.9 VENTRAL HERNIA WITHOUT O BSTRUCTION OR GANGRENE COMPARISON: Limited Abdominal ultrasound dated 10/12/2014. CT abdomen and pelvis examination dated TECHNIQUE: Dynamic and static grayscale images acquired of the localized site of clinical concern an d recorded on PACS. Additional selected color Doppler and spectral images recorded. SITE OF CONCERN: Mid Abdomen LIMITATIONS: None. FINDINGS: The patient has a history of prior hernia repair several years ago. A 1.7 cm abdominal wa ll defect is identified in the midline aspect of the abdomen, superior to the umbilicus. A small fat containing ventral hernia is identified. IMPRESSION: 1. Small fat containing umbilical hernia superior to the umbilicus. This finding corre lates to the CT abdomen pelvis examination dated 01/25/2018. TECHNICAL DOCUMENTATION: JOB ID: [id number] [employer]- All Rights Reserved Reading location - IP/workstation name: [email or web address]
== END ==
LOC: RAD 07:17
PROVIDERS: ATTEND Family Medicine
DX: K43.9 Ventral hernia without obstruction or gangrene (principal)
CPT/HCPCS: 76705; 93976

== ENCOUNTER 2018-03-24 23:08 | Emergency (ER) | payer MEDICARE, OTHER ==
--- NOTE | 2018-03-25 | EKG REPORT ---
SEVERITY:- ABNORMAL ECG - SINUS RHYTHM INCOMPLETE RIGHT BUNDLE BRANCH BLOCK PROBABLE INFERIOR INFARCT, AGE INDETERMINATE : Confirmed by: Sheldon Crowder 24-Mar-2018 23:58:34
[2018-03-25] MEDS ORDERED: ASPIRIN 81 MG TABLET, CHEWABLE PO ONE (00:09)
--- NOTE | 2018-03-25 00:15 | ER Document Report ---
ED Medical Screen (RME) - General Chief Complaint: Chest Pain > 30 Stated Complaint: CHEST/BACK PAIN/BLOOD PRESSURE ISSUE Time Seen by Provider: 03/24/18 23:59 Mode of Arrival: Wheelchair Information source: Patient Notes: Patient is a 57-year-old male who presents to the emergency department with complaint of constant chest pain that started approximately 1 PM this afternoon. Patient reports it is a pressure in the midsternal region. Throughout the day it has progressed and is now radiating straight through to his back and up into his jaw. He denies any nausea, shortness of breath or diaphoresis. He reports that he is currently being worked up for hypertension however he does not take any medications yet. He does have a history of having a heart cath done many years ago in [place] however he did not require any stent placement. Patient tried taking Zantac earlier to alleviate his symptoms without any relief. Patient does have a port in his left arm due to a history of melanoma although he is not currently receiving any treatment through this. Exam: Lung sounds clear to auscultation bilaterally. Patient alert, oriented and in no acute distress. Heart sounds S1-S2 present without ectopy noted. I have greeted and performed a rapid initial assessment of this patient. A comprehensive ED assessment and evaluation of the patient, analysis of test results and completion of the medical decision making process will be conducted by additional ED providers. Dictation of this chart was performed using voice recognition software; therefore, there may be some unintended grammatical errors. TRAVEL OUTSIDE OF THE [place] IN LAST 30 DAYS: No - Related Data Allergies/Adverse Reactions: ceftriaxone [From Rocephin] Allergy (Verified 08/29/17 08:16) Past Medical History - Past Medical History Cardiac Medical History: Denies: Hx Coronary Artery Disease, Hx Hypertension Renal/ Medical History: Reports: Hx Kidney Stones. Denies: Hx Peritoneal Dialysis GI Medical History: Reports: Hx Diverticulitis, Hx Gastroesophageal Reflux Disease, Hx Colonoscopy Musculoskeltal Medical History: Reports Hx Arthritis, Reports Hx Musculoskeletal Deformity, Reports Hx Musculoskeletal Trauma Psychiatric Medical History: Reports: Hx Anxiety, Hx Depression Traumatic Medical History: Reports: Hx Fractures, Hx Traumatic Brain Injury Past Surgical History: Reports: Hx Adenoidectomy, Hx Bowel Surgery, Hx Cholecystectomy, Hx Neurologic Surgery - Neck 2, Hx Oral Surgery - Dental surgery, Hx Orthopedic Surgery - shoulder, knee, carpal tunnel, Hx Testicular Surgery - Wire for varicoceles, Hx Tonsillectomy, Other - Removed melanoma tumors from back and lymph nodes, ventral hernia repair an - Immunizations Hx Diphtheria, Pertussis, Tetanus Vaccination: Yes - unknown Physical Exam - Vital signs Vitals: Temp Pulse Resp BP Pulse Ox 97.7 F 61 18 135/79 H 97 03/24/18 23:16 03/24/18 23:16 03/24/18 23:16 03/24/18 23:16 03/24/18 23:16 Course - Vital Signs Vital signs: Temp Pulse Resp BP Pulse Ox 97.7 F 61 18 135/79 H 97 03/24/18 23:16 03/24/18 23:16 03/24/18 23:16 03/24/18 23:16 03/24/18 23:16 Doctor's Discharge - Discharge Referrals: NATALY GUERRA MD [Primary Care Provider] - Follow up as needed
[2018-03-25 00:21] LABS: ABSOLUTE BASOPHILS # (AUTO) 0.1 10^3/uL (0.0-0.2); ABSOLUTE EOSINOPHILS # (AUTO) 0.5 10^3/uL (0.0-0.6); ABSOLUTE LYMPHOCYTES (AUTO) 2.5 10^3/uL (0.5-4.7); ABSOLUTE MONOCYTES (AUTO) 0.6 10^3/uL (0.1-1.4); ABSOLUTE NEUT (AUTO) 4.7 10^3/uL (1.7-8.2); BASOPHILS % (AUTO) 0.8 % (0-2); EOSINOPHILS % (AUTO) 5.8 % (0-6); HEMATOCRIT 44.5 % (37.9-51.0); HEMOGLOBIN 15.4 g/dL (13.5-17.0); LYMPHOCYTES % (AUTO) 30.2 % (13-45); MEAN CORPUSCULAR HEMOGLOBIN 28.7 pg (27.0-33.4); MEAN CORPUSCULAR HGB CONC 34.6 g/dL (32.0-36.0); MEAN CORPUSCULAR VOLUME 83 fl (80-97); PLATELET COUNT 199 10^3/uL (150-450); RED BLOOD COUNT 5.36 10^6/uL (4.35-5.55); RED CELL DISTRIBUTION WIDTH 13.9 % (11.5-14.0); SEGMENTED NEUTROPHILS % (AUTO) 56.2 % (42-78); TOTAL CELLS COUNTED % (AUTO) 100 %; WHITE BLOOD COUNT 8.4 10^3/uL (4.0-10.5)
[2018-03-25 00:31] LABS: INTERNATIONAL RATION (INR) 0.89; PROTHROMBIN TIME 12.5 SEC (11.4-15.4)
--- NOTE | 2018-03-25 00:38 | ER Document Report ---
ED General - General Chief Complaint: Chest Pain > 30 Stated Complaint: CHEST/BACK PAIN/BLOOD PRESSURE ISSUE Time Seen by Provider: 03/24/18 23:59 Mode of Arrival: Wheelchair Notes: Patient is a 57-year-old male that presents to the emergency department for chief complaint of chest pain. The patient reports that the pain started this morning and was persistent throughout the day. The currently rate the pain as 4 out of 10, and described as aching sensation, in the subxiphoid region. He did try taking Zantac earlier today, with minimal relief of his pain, because it persisted he decided to come to the emergency department. He does report having a left heart catheterization approximately 8 years ago, that was negative at that time. Denies any associated shortness of breath, nausea, vomiting, diaphoresis. Their risk factors for heart disease include hypertension and family history, denies history of diabetes mellitus, hyperlipidemia, or smoking history. Past Medical History: Hypertension Past Surgical History: Cholecystectomy, hernia repair, colon resection Social History: Denies tobacco, alcohol or drug use. Family History: Congestive heart failure in his father and brother Allergies: Reviewed, see documented allergy list. REVIEW OF SYSTEMS: Other than noted above, the 12 point review of systems was reviewed with the patient and were negative, all pertinent findings are included in the HPI. PHYSICAL EXAMINATION: Vital signs reviewed, nursing noted reviewed. GENERAL: Well-appearing, well-nourished and in no acute distress. HEAD: Atraumatic, normocephalic. EYES: Eyes appear normal, extraocular movements intact, sclera anicteric, conjunctiva are normal. ENT: nares patent, oropharynx clear without exudates. Moist mucous membranes. NECK: Normal range of motion, supple without lymphadenopathy LUNGS: Breath sounds clear to auscultation bilaterally and equal. No wheezes rales or rhonchi. HEART: Regular rate and rhythm without murmurs ABDOMEN: Soft, nontender, normoactive bowel sounds. No rebound, guarding, or rigidity. No masses appreciated. EXTREMITIES: Nontender, good range of motion, no pitting or edema. NEUROLOGICAL: No focal neurological deficits. Moves all extremities spontaneously Motor and sensory grossly intact on exam. PSYCH: Normal mood, normal affect. SKIN: Warm, Dry, normal turgor, no rashes or lesions noted on exposed skin TRAVEL OUTSIDE OF THE [place] IN LAST 30 DAYS: No - Related Data Allergies/Adverse Reactions: ceftriaxone [From Rocephin] Allergy (Verified 03/25/18 01:26) Past Medical History - General Information source: Patient - Social History Smoking Status: Never Smoker Family History: Reviewed & Not Pertinent, Arthritis - Past Medical History Cardiac Medical History: Denies: Hx Coronary Artery Disease, Hx Hypertension Renal/ Medical History: Reports: Hx Kidney Stones. Denies: Hx Peritoneal Dialysis GI Medical History: Reports: Hx Diverticulitis, Hx Gastroesophageal Reflux Disease, Hx Colonoscopy Musculoskeletal Medical History: Reports Hx Arthritis, Reports Hx Musculoskeletal Deformity, Reports Hx Musculoskeletal Trauma Psychiatric Medical History: Reports: Hx Anxiety, Hx Depression Traumatic Medical History: Reports: Hx Fractures, Hx Traumatic Brain Injury Past Surgical History: Reports: Hx Adenoidectomy, Hx Bowel Surgery, Hx Cholecystectomy, Hx Neurologic Surgery - Neck 2, Hx Oral Surgery - Dental surgery, Hx Orthopedic Surgery - shoulder, knee, carpal tunnel, Hx Testicular Surgery - Wire for varicoceles, Hx Tonsillectomy, Other - Removed melanoma tumors from back and lymph nodes, ventral hernia repair an - Immunizations Hx Diphtheria, Pertussis, Tetanus Vaccination: Yes - unknown Physical Exam - Vital signs Vitals: Temp Pulse Resp BP Pulse Ox 97.7 F 61 18 135/79 H 97 03/24/18 23:16 03/24/18 23:16 03/24/18 23:16 03/24/18 23:16 03/24/18 23:16 Course - Re-evaluation Re-evalutation: Presentation of chest pain in an otherwise well appearing patient. Low clinical suspicion for ACS given clinical history, exam, EKG without ST elevations or depressions, and negative initial troponin. HEART score less than or equal to 3. PE also seems unlikely given clinical history, absence of tachycardia or dyspnea. Patient is PERC criteria negative. CXR without evidence of pneumothorax or pneumonia. No widened mediastinum. Aortic dissection also seems unlikely given history, symmetric pulses, CXR, and vitals. HEART Score: History 0 ECG 0 Age 1 Risk Factors 1 Troponin 0 Total: 2 Chest pain in a patient without evidence of cardiac or other serious etiology on workup today. I discussed with patient that, based on their age, risk factors and emergency department testing today, the likelihood that their symptoms are related to a heart attack is very low (estimated risk of heart attack or over the next 30 days of less than 1%). The patient demonstrates decision making capacity and has verbalized an understanding of these risks to me. Based on this, the patient has chosen to follow-up as an outpatient. Usual chest pain return precautions reviewed. The patient states understanding and agreement with this plan. - Vital Signs Vital signs: Temp Pulse Resp BP Pulse Ox 98.3 F 61 16 134/83 H 98 03/25/18 03:52 03/24/18 23:16 03/25/18 03:52 03/25/18 03:52 03/25/18 03:52 - Laboratory Result Diagrams: 03/25/18 00:05 03/25/18 00:54 Laboratory results interpreted by me: 03/25/18 00:54 BUN 21 H Creatine Kinase 49 L Total Protein 6.2 L - EKG Interpretation by Me Additional EKG results interpreted by me: EKG demonstrates sinus bradycardia with a ventricular rate of 56 bpm, slight left axis deviation, normal intervals, incomplete right bundle branch block present, no evidence of acute ischemia on this EKG, this is compared with prior EKG from 02/02/2018, without significant change. Discharge - Discharge Clinical Impression: Chest pain Qualifiers: Chest pain type: unspecified Qualified Code(s): R07.9 - Chest pain, unspecified Condition: Stable Disposition: HOME, SELF-CARE Instructions: Chest Pain of Unclear Cause ([facility]) Additional Instructions: Please return to the emergency department if you have any worsening, or concern of your symptoms. Please return to the emergency department if you develop chest pain, difficulty breathing, severe abdominal pain, or ongoing vomiting. Please follow-up with your primary care physician in 2-3 days and any other recommended physicians. If prescribed, take all medications as directed. If you have any questions or concerns do not hesitate to return the emergency department for evaluation. Please follow-up with a vp of technology, to schedule stress test, also take the prescribed omeprazole, as directed daily, to help with your symptoms, this may be related to reflux. Prescriptions: Omeprazole 40 mg PO DAILY #30 capsule. Referrals: NATALY GUERRA MD [Primary Care Provider] - Follow up in 3-5 days ANNE MEYERS MD [ACTIVE STAFF] - Follow up in 3-5 days (call for appointment to set up stress test. )
--- NOTE | 2018-03-25 00:39 | RADIOLOGY REPORT (SQ) ---
EXAM DESCRIPTION: XR CHEST 1 VIEW COMPLETED DATE/TME: 03/25/2018 00:09 CLINICAL HISTORY: 57 years, Male, CHEST PAIN RADIATING INTO JAW COMPARISON: 09/17/2017 chest x-ray NUMBER OF VIEWS: 1 TECHNIQUE: Frontal view chest LIMITATIONS: None. FINDINGS: Heart size is normal. Lungs are clear. Left PICC catheter noted. Postsurgical change cervical spine. No pneumothorax IMPRESSION: No acute cardiopulmonary process copyright 2010 [employer]- All Rights Reserved
[2018-03-25] MEDS ORDERED: METOCLOPRAMIDE HCL ORAL SOLN 10 MG/10 ML UDCUP PO ONE (00:50)
[2018-03-25] MEDS ORDERED: MAG HYDROX/AL HYDROX/SIMETH SUSP 30 ML UDCUP PO ONE (00:50)
[2018-03-25] MEDS ORDERED: LIDOCAINE 2% VISCOUS SOLN 20 ML UDCUP PO ONE (00:50)
[2018-03-25 00:54] LABS: CREATINE KINASE MB 0.55 ng/mL (<4.55)
[2018-03-25 00:55] LABS: TROPONIN I < 0.012 ng/mL
[2018-03-25 01:20] LABS: ALBUMIN 3.7 g/dL (3.5-5.0); CARBON DIOXIDE 27 mmol/L (22-30); GLUCOSE 97 mg/dL (75-110); TOTAL PROTEIN 6.2 g/dL (6.3-8.2)
[2018-03-25 01:21] LABS: ALANINE AMINOTRANSFERASE 40 U/L (21-72); ALKALINE PHOSPHATASE 42 U/L (38-126); ASPARTATE AMINO TRANSFERASE 27 U/L (17-59); BILIRUBIN,DIRECT 0.3 mg/dL (0.0-0.4); BILIRUBIN,TOTAL 0.5 mg/dL (0.2-1.3); BLOOD UREA NITROGEN 21 mg/dL (7-20); CALCIUM 9.1 mg/dL (8.4-10.2); CREATINE KINASE 49 U/L (55-170); POTASSIUM 4.1 mmol/L (3.6-5.0)
[2018-03-25 01:22] LABS: ANION GAP 7 (5-19); CHLORIDE 103 mmol/L (98-107); SODIUM 137.2 mmol/L (137-145)
[2018-03-25 03:56] VITALS: BP 134/83
== END 2018-03-25 03:56 | disposition home or self-care (01) ==
LOC: ER 23:08
DX: R07.9 Chest pain, unspecified (principal); M54.9 Dorsalgia, unspecified; I10 Essential (primary) hypertension; Z90.49 Acquired absence of other specified parts of digestive tract; Z87.442 Personal history of urinary calculi
CPT/HCPCS: 93005; 99285; 36415; 82553; 82550; 85025; 85610; 80053; 84484; 71045; 93010; A9270 ×2; J3490

== ENCOUNTER → 2018-04-15 | Outpatient (CLI) | payer MEDICARE, OTHER ==
--- NOTE | 2018-04-15 10:52 | RADIOLOGY REPORT (SQ) ---
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 PET-CT 01/25/2018. TECHNIQUE: CT scan of the chest performed using helical scanning technique with dynamic intravenous contrast injection. Images reviewed with lung, soft tissue and bone windows. Reconstructed coronal and sagittal MPR and MIP images reviewed. All images stored on PACS. All CT scanners at this facility use dose modulation, iterative reconstruction, and/or weight based d osing when appropriate to reduce radiation dose to as low as reasonably achievable (ALARA). [facility]: Dose Right [facility]: CareDose [facility]: Dose Right [facility]: Teradose 4D [facility]: [email or web address] CONTRAST TYPE AND DOSE: contrast/concentration: Isovue 350.00 mg/ml; Total Contrast Delivered: 80.0 ml; Total Saline Delivered: 55.0 ml RENAL FUNCTION: Within acceptable limits. RADIATION DOSE: . LIMITATIONS: None. FINDINGS: LUNGS AND PLEURA: No opacities, nodules, masses. No pneumothorax. No effusions. HILAR AND MEDIASTINAL STRUCTURES: No identified masses or abnormal nodes. HEART AND VASCULAR STRUCTURES: No aneurysm or dissection. No central pulmonary emboli. No pericardi al effusion. HARDWARE: Left PICC line. UPPER ABDOMEN: No significant findings. Limited exam. THYROID AND OTHER SOFT TISSUES: No masses. No adenopathy. BONES: No significant finding. OTHER: No other significant finding. IMPRESSION: NORMAL CT OF THE CHEST WITH IV CONTRAST. TECHNICAL DOCUMENTATION: JOB ID: [id number] Quality ID # [id number]: Final reports with documentation of one or more dose reduction techniques (e.g., Au tomated exposure control, adjustment of the mA and/or kV according to patient size, use of iterative reconstruction technique) 2010 [employer]- All Rights Reserved Reading location - IP/workstation name: [email or web address]
--- NOTE | 2018-04-15 13:29 | RADIOLOGY REPORT (SQ) ---
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 Reconstructed coronal and sagittal MPR images reviewed. All images stored on PACS. All CT scanners at this facility use dose modulation, iterative reconstruction, and/or weight based d osing when appropriate to reduce radiation dose to as low as reasonably achievable (ALARA). [facility]: Dose Right [facility]: CareDose [facility]: Dose Right [facility]: Teradose 4D [facility]: [employer] CONTRAST TYPE AND DOSE: 80 mL of IV Omnipaque 350 RENAL FUNCTION: Creatinine 0.5 RADIATION DOSE: 16 mGy . LIMITATIONS: None. FINDINGS: SKULL BASE: Inferior brain parenchyma in the field of view unremarkable MAJOR SALIVARY GLANDS: No solid or cystic masses. No inflammatory changes. LYMPHADENOPATHY: No adenopathy. MUCOSAL MASSES OR ASYMMETRY: No mucosal masses or asymmetry. LARYNX/CORDS: No abnormal findings. VASCULAR STRUCTURES: The major vessels are patent. LUNG APICES: Clear. BONES: Post cervical discectomy and fusion and C5-6. THYROID: Normal size. No masses. PARANASAL SINUSES: Clear. OTHER: No gross cutaneous or subcutaneous nodules over the left facial soft tissues by CT. Left perm anent central line tip in the superior vena cava. IMPRESSION: NO SIGNIFICANT FINDING IN THE SOFT TISSUES OF THE NECK. TECHNICAL DOCUMENTATION: JOB ID: [id number] Quality ID # [id number]: Final reports with documentation of one or more dose reduction techniques (e.g., Au tomated exposure control, adjustment of the mA and/or kV according to patient size, use of iterative reconstruction technique) 2010 [employer]- All Rights Reserved Reading location - IP/workstation name: [email or web address]
== END ==
LOC: RAD 08:56
PROVIDERS: ATTEND Internal Medicine Medical Oncology
DX: C79.89 Secondary malignant neoplasm of other specified sites (principal)
CPT/HCPCS: 70491; 71260; 82565

== ENCOUNTER → 2018-05-11 | Outpatient (CLI) | payer MEDICARE, OTHER ==
--- NOTE | 2018-05-11 19:34 | XCELERA REPORT ---
[address] [address] Transthoracic Echocardiogram Report Name: PRINCESS ROBERTO Age: 57 yrs Gender: Male : 1960 Patient Status: Outpatient Patient Location: RAD Study Date: 05/11/2018 11:15 AM Height: 73 in Weight: 242 lb BSA: 2.3 m2 Procedure: A two-dimensional transthoracic echocardiogram with color flow and Doppler was performed. Study Quality: Fair. Reason For Study: CP History: CHEST PAIN. Ordering Physician: KEYONA MEYERS Performed By: Rancho Lema Interpretation Summary The left ventricle is normal in size. There is normal left ventricular wall thickness. LV EF is > than 60% The left ventricular ejection fraction is within normal limits. Doppler measurements suggest impaired left ventricular relaxation, which is associated with grade I/IV or mild diastolic dysfunction The left ventricular wall motion is normal. There is no thrombus. There is no ventricular septal defect visualized. The right ventricle is grossly normal size. The right ventricle is not well visualized secondary to technical limitations The right atrium is normal. The left atrial size is normal. The interatrial septum is intact with no evidence for an atrial septal defect. There is no evidence of mitral valve prolapse. There is no vegetation seen on the mitral valve. There is no mitral valve stenosis. There is no mitral regurgitation noted. There is no aortic valvular vegetation. There is no aortic valve stenosis There is no LVOT obstruction. No aortic regurgitation is present. There is no tricuspid stenosis. No tricuspid regurgitation. Unable to calculate RVSP due lack of TR jet. There is no pulmonic valvular stenosis. There is no pulmonic valvular regurgitation. The aortic root is normal size. There is no pericardial effusion. MMode/2D Measurements & Calculations RVDd: 3.3 cm LVIDd: 5.4 cm FS: 37.7 % Ao root diam: 3.9 cm IVSd: 0.89 cm LVIDs: 3.4 cm EDV(Teich): 142.0 ml Ao root area: 12.1 cm2 LVPWd: 1.0 cm ESV(Teich): 46.4 ml LA dimension: 3.2 cm EF(Teich): 67.3 % Doppler Measurements & Calculations MV E max melanie: MV P1/2t max melanie: Ao V2 max: LV V1 max P.4 cm/sec 60.8 cm/sec 84.2 cm/sec 2.2 mmHg MV A max melanie: MV P1/2t: 70.1 msec Ao max PG: LV V1 max: 71.6 cm/sec MVA(P1/2t): 3.1 cm2 2.8 mmHg 74.7 cm/sec MV E/A: 0.75 MV dec slope: 254.2 cm/sec2 MV dec time: 0.25 sec PA V2 max: MV P1/2t-pr_phl: 65.8 cm/sec 70.1 msec PA max P.7 mmHg Left Ventricle The left ventricle is normal in size. There is normal left ventricular wall thickness. LV EF is > than 60%. The left ventricular ejection fraction is within normal limits. Doppler measurements suggest impaired left ventricular relaxation, which is associated with grade I/IV or mild diastolic dysfunction. The left ventricular wall motion is normal. There is no thrombus. There is no ventricular septal defect visualized. Right Ventricle The right ventricle is grossly normal size. The right ventricle is not well visualized secondary to technical limitations. Atria The right atrium is normal. The left atrial size is normal. The interatrial septum is intact with no evidence for an atrial septal defect. Mitral Valve There is no evidence of mitral valve prolapse. There is no vegetation seen on the mitral valve. There is no mitral valve stenosis. There is no mitral regurgitation noted. Aortic Valve There is no aortic valvular vegetation. There is no aortic valve stenosis. There is no LVOT obstruction. No aortic regurgitation is present. Tricuspid Valve There is no tricuspid stenosis. No tricuspid regurgitation. Unable to calculate RVSP due lack of TR jet. Pulmonic Valve There is no pulmonic valvular stenosis. There is no pulmonic valvular regurgitation. Great Vessels The aortic root is normal size. Effusions There is no pericardial effusion. : KEYONA MEYERS > Keyona Meyers
== END ==
LOC: RAD 10:41
PROVIDERS: ATTEND Specialist
DX: R07.9 Chest pain, unspecified (principal)
CPT/HCPCS: 93306

== ENCOUNTER → 2018-05-13 | Outpatient (CLI) | payer MEDICARE, OTHER ==
[~2018-05-13] MED LIST: REGADENOSON INJ 0.4 MG/5 ML DISP.SYRIN IV ONE
--- NOTE | 2018-05-16 21:11 | DRAGON STRESS TEST REPORT ---
Intravenous Lexiscan Cardiolite stress test using single photon emmision computerized tomography. Date of procedure: 05/13/2018. Ordering Provider: Dr. Keyona Kim. Patient's status: Out Patient. Indication: Chest pain. Coronary risk factors: Age, hypertension, and family history of coronary artery disease. Resting EKG: Sinus Rhythm. Incomplete right bundle branch block pattern. Stress EKG: No changes of ischemia. The patient had no chest pain or discomfort, and there were no arrhythmias seen. Reason for termination: Protocol. Conclusions: Normal EKG and hemodynamic response to IV Lexiscan. Nuclear data: At rest the patient was given 14.88 millicuries of technetium 99m sestamibi injected intravenously. As per protocol rest non gated SPECT images were obtained. Subsequently the patient was given intravenous Lexiscan at a dose of 0.4 mg in 5 mL intravenously, followed by flush with normal saline. Subsequently the stress dose of 45.5 millicuries of technetium 99m sestamibi was injected intravenously. As per protocol stress gated images were obtained. Nuclear interpretation: Review of images showed that significant motion artifact. In spite of this there is a perfusion defect in the left ventricle apex in the stress images, which perfusion normalizes and the rest images. This area has normal motion contraction and thickening by gated study. The rest of the segments of the myocardium had normal perfusion at rest, and normal perfusion post stress with IV Lexiscan. All segments of the myocardium had normal motion, contraction, and thickening by gated study. T. I D. ratio was read by the computer as abnormal at 1.23. Visually this is not reliable and the TID ratio is normal. There is no transient ischemic dilatation of the left ventricle. Computer read rest, and stress left ventricular ejection fraction were 59 %, and 61 %, respectively. Conclusion: 1. There is scintigraphic evidence of Lexiscan induced myocardial ischemia involving the left ventricle apex. 2. There is no scintigraphic evidence of myocardial infarction/scar. Recommendations: 1. Correlate clinically. Consider cardiac catheterization if the patient is symptomatic. 2.Aggressive risk factor modification, and treating the underlying co- morbidities. MTDD
== END ==
LOC: RAD 07:06
PROVIDERS: ATTEND Specialist
DX: R07.9 Chest pain, unspecified (principal)
CPT/HCPCS: 93017; 78452; A9500; J2785; Q9969

== ENCOUNTER → 2018-06-01 | Outpatient (CLI) | payer MEDICARE, OTHER ==
[2018-06-01 12:52] LABS: INTERNATIONAL RATION (INR) 0.88; PARTIAL THROMBOPLASTIN TIME 26.9 SEC (23.5-35.8); PROTHROMBIN TIME 12.4 SEC (11.4-15.4)
[2018-06-01 12:55] LABS: ABSOLUTE BASOPHILS # (AUTO) 0.1 10^3/uL (0.0-0.2); ABSOLUTE EOSINOPHILS # (AUTO) 0.5 10^3/uL (0.0-0.6); ABSOLUTE LYMPHOCYTES (AUTO) 2.2 10^3/uL (0.5-4.7); ABSOLUTE MONOCYTES (AUTO) 0.7 10^3/uL (0.1-1.4); ABSOLUTE NEUT (AUTO) 4.7 10^3/uL (1.7-8.2); BASOPHILS % (AUTO) 0.7 % (0-2); HEMATOCRIT 43.5 % (37.9-51.0); HEMOGLOBIN 15.3 g/dL (13.5-17.0); LYMPHOCYTES % (AUTO) 27.3 % (13-45); MEAN CORPUSCULAR HEMOGLOBIN 29.5 pg (27.0-33.4); MEAN CORPUSCULAR HGB CONC 35.1 g/dL (32.0-36.0); MEAN CORPUSCULAR VOLUME 84 fl (80-97); MONOCYTES % (AUTO) 8.1 % (3-13); PLATELET COUNT 179 10^3/uL (150-450); RED BLOOD COUNT 5.17 10^6/uL (4.35-5.55); RED CELL DISTRIBUTION WIDTH 14.3 % (11.5-14.0); SEGMENTED NEUTROPHILS % (AUTO) 57.9 % (42-78); TOTAL CELLS COUNTED % (AUTO) 100 %; WHITE BLOOD COUNT 8.1 10^3/uL (4.0-10.5)
[2018-06-01 13:21] LABS: ANION GAP 9 (5-19); BLOOD UREA NITROGEN 19 mg/dL (7-20); CARBON DIOXIDE 28 mmol/L (22-30); CHLORIDE 105 mmol/L (98-107); GLUCOSE 88 mg/dL (75-110); POTASSIUM 4.9 mmol/L (3.6-5.0); SODIUM 141.9 mmol/L (137-145)
== END ==
LOC: OD 11:55
PROVIDERS: ATTEND Specialist
DX: R07.9 Chest pain, unspecified (principal); I10 Essential (primary) hypertension; R01.1 Cardiac murmur, unspecified; E78.5 Hyperlipidemia, unspecified; Z79.899 Other long term (current) drug therapy
CPT/HCPCS: 36415; 80051; 82565; 82947; 83735; 84520; 85025; 85610; 85730

== ENCOUNTER → 2018-06-19 | Outpatient (CLI) | payer MEDICARE, OTHER ==
[2018-06-19 09:20] LABS: INTERNATIONAL RATION (INR) 0.94; PARTIAL THROMBOPLASTIN TIME 32.3 SEC (23.5-35.8)
[2018-06-19 09:21] LABS: ABSOLUTE BASOPHILS # (AUTO) 0.1 10^3/uL (0.0-0.2); ABSOLUTE EOSINOPHILS # (AUTO) 0.6 10^3/uL (0.0-0.6); ABSOLUTE LYMPHOCYTES (AUTO) 1.6 10^3/uL (0.5-4.7); ABSOLUTE MONOCYTES (AUTO) 0.3 10^3/uL (0.1-1.4); ABSOLUTE NEUT (AUTO) 4.6 10^3/uL (1.7-8.2); BASOPHILS % (AUTO) 0.9 % (0-2); EOSINOPHILS % (AUTO) 8.2 % (0-6); HEMATOCRIT 43.8 % (37.9-51.0); HEMOGLOBIN 15.4 g/dL (13.5-17.0); LYMPHOCYTES % (AUTO) 22.6 % (13-45); MEAN CORPUSCULAR HEMOGLOBIN 29.4 pg (27.0-33.4); MEAN CORPUSCULAR HGB CONC 35.1 g/dL (32.0-36.0); MEAN CORPUSCULAR VOLUME 84 fl (80-97); MONOCYTES % (AUTO) 4.6 % (3-13); PLATELET COUNT 194 10^3/uL (150-450); RED BLOOD COUNT 5.22 10^6/uL (4.35-5.55); RED CELL DISTRIBUTION WIDTH 14.3 % (11.5-14.0); SEGMENTED NEUTROPHILS % (AUTO) 63.7 % (42-78); TOTAL CELLS COUNTED % (AUTO) 100 %; WHITE BLOOD COUNT 7.2 10^3/uL (4.0-10.5)
[2018-06-19 09:36] LABS: ANION GAP 8 (5-19); BLOOD UREA NITROGEN 17 mg/dL (7-20); CARBON DIOXIDE 28 mmol/L (22-30); CHLORIDE 103 mmol/L (98-107); GLUCOSE 128 mg/dL (75-110); POTASSIUM 4.5 mmol/L (3.6-5.0); SODIUM 138.9 mmol/L (137-145)
--- NOTE | 2018-06-19 23:02 | EKG REPORT ---
SEVERITY:- ABNORMAL ECG - SINUS RHYTHM INCOMPLETE RIGHT BUNDLE BRANCH BLOCK : Confirmed by: Sheldon Crowder 19-Jun-2018 23:01:57
== END ==
LOC: OD 08:31
PROVIDERS: ATTEND Specialist
DX: I10 Essential (primary) hypertension (principal); R01.0 Benign and innocent cardiac murmurs; R94.30 Abnormal result of cardiovascular function study, unspecified; E78.5 Hyperlipidemia, unspecified; Z85.820 Personal history of malignant melanoma of skin; Z79.899 Other long term (current) drug therapy
CPT/HCPCS: 36415; 80051; 82565; 82947; 83735; 84520; 85025; 85610; 85730; 93005; 93010

== ENCOUNTER 2018-06-24 07:58 | Day surgery (SDC) | payer MEDICARE, OTHER ==
[~2018-06-24 07:58] MED LIST changes: +D5W IV PRN; +DISPOSABLE IV PRN; +NITROGLYCERIN IV PRN; -REGADENOSON INJ 0.4 MG/5 ML DISP.SYRIN IV ONE
[2018-06-24] MEDS ORDERED: MIDAZOLAM 2 MG/2 ML INJ ONE (08:49)
[2018-06-24] MEDS ORDERED: FENTANYL CITRATE INJ/PF 100 MCG/2 ML AMPUL ONE (08:49)
[2018-06-24] MEDS ORDERED: LIDOCAINE 1% INJ-PF (10 MG/ML) 30 ML SDV ONE (08:50)
[2018-06-24] MEDS ORDERED: HEPARIN SODIUM,PORCINE/NS/PF 2,000 UNIT/1,000 ML RTUINJ IV ONE (08:50)
[2018-06-24] MEDS ORDERED: HEPARIN SOD (PORCINE) 1,000 UNIT/ML 10 ML VIAL ONE (08:50)
[2018-06-24 09:14] LABS: INTERNATIONAL RATION (INR) 0.92; PROTHROMBIN TIME 12.8 SEC (11.4-15.4)
--- NOTE | 2018-06-24 09:34 | PDOC H&P ---
History of Present Illness Admission Date/PCP: June 24, 2018 Patient complains of: Abnormal stress test History of Present Illness: PRINCESS ROBERTO is a 58 year old male Very pleasant who is accompanied by his and he presents today at the request of his primary gas plumbing inspector for consideration of cardiac catheterization to evaluate an abnormal myocardial perfusion study as well as to evaluate a heart valve. Patient is a very pleasant gentleman. He has a family history of premature coronary artery disease with a father having a myocardial infarction. He has a history of metastatic melanoma which has been in remission after chemotherapy for the past 3 years and continues to have a port. He describes an episode of chest pressure and tightness which occurred when he was very stressed out. He was stressed out due to medical bills. He presented to [facility]. He underwent evaluation. Echocardiography was performed and demonstrated normal left ventricular systolic function with no evidence of significant valvular disease. He subsequently underwent a myocardial perfusion imaging study demonstrating left ventricular apex ischemia. He was subsequently evaluated by his gas plumbing inspector as an outpatient. The cardiac catheterization was subsequently scheduled. The patient denies any PND orthopnea pedal edema syncope or presyncope. He denies any chest discomfort. He denies any monocular blindness or unilateral weakness. He takes his medications appropriately. He is compliant with medical therapy. Patient currently has a port in place. He is on anticoagulation with low-dose Coumadin. On examination patient is a very pleasant gentleman who is alert and oriented quite jovial in no acute distress ENMT extraocular movements are intact oropharynx is clear mucous membranes are moist neck is supple JVP is flat anterior right sided scar from prior neck surgeries is present carotid upstrokes are brisk bilaterally without bruits cardiac is regular rate and rhythm without murmur gallops rubs or clicks PMI is not laterally displaced pulses are equal bilaterally radial femoral dorsalis pedis posterior tibialis lungs are clear to auscultation bilaterally without rales wheezes rhonchi abdomen soft nontender nondistended no pulsatile masses extremities are warm and dry without clubbing or cyanosis edema or jaundice skin is intact tattoos are present skin is grossly intact Past Medical History Cardiac Medical History: Reports: Hypertension Denies: Coronary Artery Disease, Myocardial Infarction Pulmonary Medical History: Reports: Pneumonia - CHILD Denies: Asthma, Bronchitis, Chronic Obstructive Pulmonary Disease (COPD) Neurological Medical History: Denies: Seizures Malignancy Medical History: Reports: Other - Metastatic melanoma currently in remission after chemotherapy GI Medical History: Reports: Diverticulitis, Gastroesophageal Reflux Disease Musculoskeltal Medical History: Reports: Arthritis Psychiatric Medical History: Reports: Depression Traumatic Medical History: Reports: Traumatic Brain Injury Hematology: Denies: Anemia Past Surgical History Past Surgical History: Reports: Cholecystectomy, Orthopedic Surgery - shoulder, knee, carpal tunnel, Tonsillectomy, Other - Removed melanoma tumors from back and lymph nodes, ventral hernia repair an Social History Smoking Status: Former Smoker Frequency of Alcohol Use: Rare Hx Recreational Drug Use: No Hx Prescription Drug Abuse: No Family History Family History: Reviewed & Not Pertinent, Arthritis, Hypertension Parental Family History Reviewed: No Children Family History Reviewed: No Sibling(s) Family History Reviewed.: Yes Medication/Allergy Home Medications: Gabapentin [Gralise] 2 cap PO BID 10/05/14 Tizanidine HCl [Zanaflex 4 mg Tablet] 1 tab PO BID 10/05/14 Bupropion HCl [Wellbutrin Sr 150 mg Tablet] 1 tab PO BID 04/15/18 Calcium Carbonate [Calcium] 1 tab PO DAILY 04/15/18 Cholecalciferol (Vitamin D3) [Vitamin D3] 1 tab PO DAILY 04/15/18 Lisinopril [Prinivil] 1 tab PO BID 04/15/18 Warfarin Sodium [Coumadin 1 mg Tablet] 1 tab PO DAILY 04/15/18 Amitriptyline HCl [Elavil 50 Mg Tablet] 50 mg PO DAILY 06/24/18 Allergies/Adverse Reactions: ceftriaxone [From Rocephin] Allergy (Verified 03/25/18 01:26) Physical Exam Vital Signs: Temp Pulse Resp BP Pulse Ox 97.8 F 62 12 156/81 H 98 06/24/18 08:29 06/24/18 08:29 06/24/18 08:29 06/24/18 08:29 06/24/18 08:29 Intake & Output 06/23/18 06/24/18 06/25/18 06:59 06:59 06:59 Weight 110.677 kg Results EKG Comments: I agree with scanned EKG Assessment & Plan - Diagnosis (1) Abnormal nuclear stress test Is this a current diagnosis for this admission?: Yes Plan: #1 abnormal stress test: Patient understands the risks benefits and alternatives as does his including but not limited to heart attack stroke surgery emergent surgery contrast nephropathy radiation exposure and have expressed a desire to proceed with diagnostic angiography and left heart catheterization. Furthermore they both recognize that procedural will be performed without surgery on site and that if any emergency does occur they will require ground transport to [facility] emergency [facility] transport has visually been confirmed confirmed to be present 2. Hypertension: Blood pressure is moderately elevated today will defer to primary gas plumbing inspector for further management #3 low-dose anticoagulation with Coumadin to prevent thrombosis of indwelling port: We are awaiting an INR today. The patient did not take his Coumadin per his report for the past 7 days.
--- NOTE | 2018-06-24 10:23 | Operative Report ---
Operative Report DATE OF SURGERY: 06/24/18 Operative Report: Left heart catheterization with selective coronary angiography PREOPERATIVE DIAGNOSIS: Abnormal stress test POSTOPERATIVE DIAGNOSIS: 1. Severe systemic arterial hypertension. #2 no evidence of significant transaortic gradient on pullback. 2. Normal left-sided filling pressures. 3. Single-vessel coronary artery disease manifest by subtotal occlusion of apical LAD OPERATION: Left heart catheterization with selective coronary angiography SURGEON: ARMANDO SMALL ANESTHESIA: Other - None TISSUE REMOVED OR ALTERED: None COMPLICATIONS: None ESTIMATED BLOOD LOSS: None INTRAOPERATIVE FINDINGS: 1. Severe systemic arterial hypertension. #2 no evidence of significant transaortic gradient on pullback. #2 normal left-sided filling pressures. 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 Complications: None Consent signed on chart Procedure: Patient was prepped and draped in the usual sterile fashion and brought to the cardiac catheterization laboratory in the fasting state. Moderate conscious sedation was not performed. Continuous hemodynamic hemodynamic monitoring was performed. Utilizing a standard technique the right radial artery was successfully cannulated after 1% Xylocaine was saturated and after 5000 units of heparin were administered and 200 mcg of nitroglycerin were administered left heart catheterization with selective coronary angiography was performed utilizing TIG catheter. Hemodynamics: In the sedated nonfasting state LV pressure is 143/0 with an LVDP of 6 aortic pressure is 168/82 with a mean of 114. There was no significant transaortic gradient on pullback. Selective coronary angiography was performed with the following findings: 1. Left main: The left main is short and bifurcates in LAD and left circumflex and has minimal luminal irregularities. 2. LAD: The LAD is of moderate caliber and terminates apically. He does have a bifurcation at its terminus. It provides a normal complement of septal perforators and 2 main diagonal branches. There is mild luminal irregularities. At the apex at the bifurcation it has a subtotal 95% bifurcating stenosis utili zing a Tello classification of 1, 1, 1. This is a small caliber vessel 3. Left circumflex: The left circumflex is a moderate caliber. I it provides several obtuse marginal branches. The main obtuse marginal branch is the second obtuse marginal branch and it has a proximal bifurcation which provides 2 main branches. It demonstrates mild luminal irregularities Impression: 1. Normal left-sided filling pressures #2 no evidence of significant transaortic gradient on pullback #3 systemic arterial hypertension #4 single- vessel coronary artery disease manifest by subtotal occlusion of the apical LAD and bifurcation pattern Plan: 1. Maximize medical therapy 2. Follow-up with primary barrel lathe operator outside for longitudinal management
--- NOTE | 2018-06-24 10:26 | Discharge Summary ---
Discharge Summary (SDC) - Discharge Final Diagnosis: #1 normal left-sided filling pressures 2. No evidence of significant transaortic gradient on pullback 3. Systemic arterial hypertension 4. Single-vessel coronary artery disease manifested by subtotal occlusion of the apical LAD Date of Surgery: 06/24/18 Discharge Date: 06/24/18 Condition: Good Treatment or Instructions: For cardiac catheterization and discharge forms Discharge Diet: Cardiac Discharge Activity: Other - Per cardiac catheterization discharge forms Home Care Assistance: None Needed Report the Following to Your Physician Immediately: Shortness of Breath, Nausea, Vomiting, Increase in Pain, Signs of Hyperglycemia, Signs of Hypoglycemia, Yel low Skin, Fever over 101 Degrees, Unusual Bleeding, Redness, Swelling, Warmth, Increased Soreness, Drainage-Yellow, Drainage-Carias, Drainage-Green, Drainage- Foul Smelling, Increased Vaginal Bleed, Large Clots, Numbness, Tingling Sensation, Visual Disturbance, Weight Gain 2-3lbs a day, Weight Gain 3-5lbs a week, Wheezing, Seizure, IV Site Infection Signs, Urinary Infection Signs
[2018-06-24] MEDS ORDERED: HYDRALAZINE HCL INJ/PF 20 MG/1 ML SDV ONE (10:34)
[2018-06-24] MEDS ORDERED: LISINOPRIL 5 MG TABLET ONE (10:34)
[2018-06-24] MEDS ORDERED: ACETAMINOPHEN 325 MG TABLET PO PRN (10:49)
[2018-06-24] MEDS ORDERED: ONDANSETRON HCL INJ/PF 4 MG/2 ML SDV IV PRN (10:50)
[2018-06-24] MEDS ORDERED: NITROGLYCERIN 0.4 MG/TAB 25 TAB/BOTTLE SL PRN (10:50)
[2018-06-24 13:18] VITALS: BP 169/84
== END 2018-06-24 13:39 | disposition home or self-care (01) ==
LOC: CCL 07:58
PROVIDERS: ATTEND Internal Medicine Cardiovascular Disease
DX: R94.39 Abnormal result of other cardiovascular function study (principal); I10 Essential (primary) hypertension; I25.10 Atherosclerotic heart disease of native coronary artery without angina pectoris; Z79.01 Long term (current) use of anticoagulants; Z87.891 Personal history of nicotine dependence; Z79.899 Other long term (current) drug therapy; Z88.8 Allergy status to other drugs, medicaments and biological substances; Z85.820 Personal history of malignant melanoma of skin; Z82.49 Family history of ischemic heart disease and other diseases of the circulatory system; Z87.820 Personal history of traumatic brain injury
CPT/HCPCS: 36415; 85610; 93458; C1894; J2250; J3010; J1644 ×2; J0360; J3490 ×3; A9270

== ENCOUNTER 2018-08-18 17:59 | Emergency (ER) | payer MEDICARE, OTHER ==
--- NOTE | 2018-08-18 18:38 | ER Document Report ---
ED Medical Screen (RME) - General Chief Complaint: Testicular Pain Stated Complaint: RIGHT TESTICLE PAIN AND SWELLING Time Seen by Provider: 08/18/18 18:33 Primary Care Provider: ANNE MEYERS MD [Primary Care Provider] - Follow up as needed Mode of Arrival: Ambulatory Information source: Patient TRAVEL OUTSIDE OF THE U[place] IN LAST 30 DAYS: No - HPI Patient complains to provider of: RIGHT TESTICULAR PAIN Notes: 08/18/18 18:37 Patient here with complaints of right testicular pain that started 3 hours ago. He also feels that it is swollen. No dysuria, hematuria, nausea, vomiting, diarrhea. No fever. No abdominal pain. Exam No distress, nontoxic-appearing. Right testicle appears to be somewhat swollen with some tenderness along the right epididymis. Normal lie. Normal cremasteric reflex. Penis normal. Plan CBC, CMP, urinalysis, testicular ultrasound. An initial examination was made on the patient as part of the triage process, and it was determined a more comprehensive evaluation was necessary. Initial labs were ordered and patient was transferred to another provider in the ED who assumed care and finished evaluation and plan. - Related Data Allergies/Adverse Reactions: ceftriaxone [From Rocephin] Allergy (Verified 08/18/18 18:01) Past Medical History - Past Medical History Cardiac Medical History: Denies: Hx Coronary Artery Disease, Hx Hypertension Renal/ Medical History: Reports: Hx Kidney Stones. Denies: Hx Peritoneal Dialysis GI Medical History: Reports: Hx Diverticulitis, Hx Gastroesophageal Reflux Disease, Hx Colonoscopy Musculoskeltal Medical History: Reports Hx Arthritis, Reports Hx Musculoskeletal Deformity, Reports Hx Musculoskeletal Trauma Psychiatric Medical History: Reports: Hx Anxiety, Hx Depression Traumatic Medical History: Reports: Hx Fractures, Hx Traumatic Brain Injury Past Surgical History: Reports: Hx Adenoidectomy, Hx Bowel Surgery, Hx Cholecystectomy, Hx Neurologic Surgery - Neck 2, Hx Oral Surgery - Dental surgery, Hx Orthopedic Surgery - shoulder, knee, carpal tunnel, Hx Testicular Surgery - Wire for varicoceles, Hx Tonsillectomy, Other - Removed melanoma tumors from back and lymph nodes, ventral hernia repair an - Immunizations Hx Diphtheria, Pertussis, Tetanus Vaccination: Yes - unknown Physical Exam - Vital signs Vitals: Temp Pulse Resp BP Pulse Ox 98.3 F 65 16 169/86 H 97 08/18/18 18:10 08/18/18 18:10 08/18/18 18:10 08/18/18 18:10 08/18/18 18:10 Course - Vital Signs Vital signs: Temp Pulse Resp BP Pulse Ox 98.3 F 65 16 169/86 H 97 08/18/18 18:10 08/18/18 18:10 08/18/18 18:10 08/18/18 18:10 08/18/18 18:10 Doctor's Discharge - Discharge Referrals: ANNE MEYERS MD [Primary Care Provider] - Follow up as needed
[2018-08-18 18:58] LABS: ABSOLUTE BASOPHILS # (AUTO) 0.1 10^3/uL (0.0-0.2); ABSOLUTE EOSINOPHILS # (AUTO) 0.5 10^3/uL (0.0-0.6); ABSOLUTE LYMPHOCYTES (AUTO) 2.5 10^3/uL (0.5-4.7); ABSOLUTE MONOCYTES (AUTO) 0.6 10^3/uL (0.1-1.4); ABSOLUTE NEUT (AUTO) 3.8 10^3/uL (1.7-8.2); BASOPHILS % (AUTO) 1.1 % (0-2); EOSINOPHILS % (AUTO) 6.1 % (0-6); HEMATOCRIT 42.5 % (37.9-51.0); HEMOGLOBIN 14.4 g/dL (13.5-17.0); MEAN CORPUSCULAR HGB CONC 33.9 g/dL (32.0-36.0); MEAN CORPUSCULAR VOLUME 86 fl (80-97); MONOCYTES % (AUTO) 7.9 % (3-13); PLATELET COUNT 199 10^3/uL (150-450); RED BLOOD COUNT 4.96 10^6/uL (4.35-5.55); RED CELL DISTRIBUTION WIDTH 13.9 % (11.5-14.0); SEGMENTED NEUTROPHILS % (AUTO) 50.9 % (42-78); TOTAL CELLS COUNTED % (AUTO) 100 %; WHITE BLOOD COUNT 7.4 10^3/uL (4.0-10.5)
[2018-08-18 19:16] LABS: ALANINE AMINOTRANSFERASE 42 U/L (21-72); ALBUMIN 3.8 g/dL (3.5-5.0); ALKALINE PHOSPHATASE 47 U/L (38-126); ANION GAP 8 (5-19); ASPARTATE AMINO TRANSFERASE 27 U/L (17-59); BILIRUBIN,DIRECT 0.2 mg/dL (0.0-0.4); BILIRUBIN,TOTAL 0.4 mg/dL (0.2-1.3); BLOOD UREA NITROGEN 22 mg/dL (7-20); CALCIUM 9.4 mg/dL (8.4-10.2); CARBON DIOXIDE 28 mmol/L (22-30); CHLORIDE 105 mmol/L (98-107); GLUCOSE 85 mg/dL (75-110); POTASSIUM 4.7 mmol/L (3.6-5.0); TOTAL PROTEIN 6.5 g/dL (6.3-8.2)
[2018-08-18 19:55] LABS: APPEARANCE,URINE SLIGHTLY-CLOUDY; BILIRUBIN,URINE NEGATIVE (NEGATIVE); COLOR,URINE YELLOW; GLUCOSE, URINE NEGATIVE (NEGATIVE); KETONES,URINE NEGATIVE (NEGATIVE); LEUKOCYTE ESTERASE,URINE NEGATIVE (NEGATIVE); NITRITE,URINE NEGATIVE (NEGATIVE); PROTEIN,URINE NEGATIVE (NEGATIVE); URINE SPECIFIC GRAVITY 1.025; UROBILINOGEN,URINE NEGATIVE mg/dL (<2.0)
--- NOTE | 2018-08-18 20:19 | RADIOLOGY REPORT (SQ) ---
EXAM DESCRIPTION: US SCROTUM COMPLETED DATE/TME: 08/18/2018 18:36 CLINICAL HISTORY: 58 years, Male, RIGHT TESTICULAR PAIN COMPARISON: None. TECHNIQUE: Sonographic evaluation of the scrotum was performed. LIMITATIONS: None. FINDINGS: Right testicle measures 4.1 x 2.5 x 2.2 cm in size. It appears overall normal in echogenicity with normal low resistance arterial waveforms. The right epididymal head is somewhat heterogeneously echogenic measuring 1.0 x 1.4 x 1.2 cm in size. A few nonspecific calcifications are noted about the right epididymal head as well. A right-sided varicocele is evident. Left testicle measures 4.5 x 2.5 x 2.3 cm in size, demonstrating an ill-defined area of hypoechogenicity about its inferior aspect which appears avascular. This was likely present on the previous exam dated 05/31/2017. However, the left testicle demonstrates normal low resistance arterial waveforms. A tiny amount of fluid is noted about the left hemiscrotum. Left epididymal head measures 0.9 x 0.5 x 1.1 cm in size. IMPRESSION: Ill-defined area of hypoechogenicity about the inferior aspect of the left testicle which appears avascular, likely present on the previous exam dated 05/31/2017. As such, this finding could represent sequela of prior orchitis or testicular trauma although a testicular neoplasm could technically have this appearance. Suggest urologic consultation. Otherwise, no acute intratesticular abnormality. Right varicocele. copyright 2010 [employer]- All Rights Reserved
[2018-08-18] MEDS ORDERED: OXYCODONE-ACETAMINOPHEN 5-325 MG TABLET PO ONE (21:13)
[2018-08-18] MEDS ORDERED: ONDANSETRON 4 MG TAB.RAPDIS PO ONE (21:13)
--- NOTE | 2018-08-18 21:21 | ER Document Report ---
ED GI/ - General Chief Complaint: Testicular Pain Stated Complaint: RIGHT TESTICLE PAIN AND SWELLING Time Seen by Provider: 08/18/18 18:33 Primary Care Provider: ANNE MEYERS MD [Primary Care Provider] - Follow up as needed Mode of Arrival: Ambulatory TRAVEL OUTSIDE OF THE [place] IN LAST 30 DAYS: No - HPI Notes: 08/18/18 21:00 Patient is a 58-year-old male presents to the emergency department with a chief complaint of right testicle pain. Patient states that he had an acute onset of right testicular pain that started around 4 PM this afternoon while he was resting. Patient denies urinary symptoms. Patient denies nausea vomiting or diarrhea. Patient denies fever. Patient states having the same type of pain around 10 years ago when he was diagnosed with epididymitis. Patient states that he was living in [place] at the time and due to his frequent urinary tract infections he was seen by a vascular surgeon who put in permanent coils. Patient states that these coils were placed to aid in blood flow to the area since he was getting frequent infections and having swelling. Patient reports pain to the right lateral testicle. Patient states that it just "hurts." Patient denies penile discharge. 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 Patient is currently on Coumadin for his left port a cath. She denies flank pain or fever. Patient states [facility] for kidney stones in which he had to have lithotripsy for. - Related Data Allergies/Adverse Reactions: ceftriaxone [From Rocephin] Allergy (Verified 08/18/18 18:01) Past Medical History - General Information source: Patient - Social History Smoking Status: Former Smoker Frequency of alcohol use: Rare Drug Abuse: None Family History: Reviewed & Not Pertinent, Arthritis, Hypertension Patient has suicidal ideation: No Patient has homicidal ideation: No - Past Medical History Cardiac Medical History: Reports: Hx Hypertension Pulmonary Medical History: Reports: None EENT Medical History: Reports: None Neurological Medical History: Reports: None Endocrine Medical History: Reports: None Renal/ Medical History: Reports: Hx Epididymitis, Hx Kidney Stones. Denies: Hx Peritoneal Dialysis Malignancy Medical History: Reports Other - Hx. Metastatic Melanoma GI Medical History: Reports: Hx Diverticulitis, Hx Gastroesophageal Reflux Disease, Hx Colonoscopy Musculoskeletal Medical History: Reports Hx Arthritis, Reports Hx Musculoskeletal Deformity, Reports Hx Musculoskeletal Trauma Psychiatric Medical History: Reports: Hx Anxiety, Hx Depression Traumatic Medical History: Reports: Hx Fractures, Hx Traumatic Brain Injury Past Surgical History: Reports: Hx Adenoidectomy, Hx Bowel Surgery, Hx Cholecystectomy, Hx Neurologic Surgery - Neck 2, Hx Oral Surgery - Dental surgery, Hx Orthopedic Surgery - shoulder, knee, carpal tunnel, Hx Testicular Surgery - Wire for varicoceles, Hx Tonsillectomy, Other - Removed melanoma tumors from back and lymph nodes, ventral hernia repair an - Immunizations Hx Diphtheria, Pertussis, Tetanus Vaccination: Yes - unknown Review of Systems - Review of Systems Constitutional: No symptoms reported EENT: No symptoms reported Cardiovascular: No symptoms reported Respiratory: No symptoms reported Gastrointestinal: No symptoms reported Genitourinary: No symptoms reported Male Genitourinary: See HPI Musculoskeletal: No symptoms reported Skin: No symptoms reported Hematologic/Lymphatic: No symptoms reported Neurological/Psychological: No symptoms reported Physical Exam - Vital signs Vitals: Temp Pulse Resp BP Pulse Ox 98.3 F 65 16 169/86 H 97 08/18/18 18:10 08/18/18 18:10 08/18/18 18:10 08/18/18 18:10 08/18/18 18:10 Interpretation: Hypertensive - Notes Notes: GENERAL: Well-appearing, well-nourished and in no acute distress. HEAD: Atraumatic, normocephalic. EYES: Pupils equal round and reactive to light, extraocular movements intact, sclera anicteric, conjunctiva are normal. ENT: TMs normal, nares patent, oropharynx clear without exudates. Moist mucous membranes. NECK: Normal range of motion, supple without lymphadenopathy or JVD. LUNGS: Breath sounds clear to auscultation bilaterally and equal. No wheezes rales or rhonchi. HEART: Regular rate and rhythm without murmurs, rubs or gallops. ABDOMEN: Soft, nontender, normoactive bowel sounds. No guarding, no rebound. No masses appreciated. EXTREMITIES: Normal range of motion, no pitting or edema. No clubbing or cyanosis. NEUROLOGICAL: Cranial nerves II through XII grossly intact. Normal speech, normal gait. PSYCH: Normal mood, normal affect. SKIN: Warm, Dry, normal turgor, no rashes or lesions noted. : Minimal swelling to right testicle, normal cremastric reflex, + tenderness to epididymis. No drainage, lesions, or surrounding cellulitis. Course - Re-evaluation Re-evalutation: 08/18/18 21:22 Called [facility] to initiate urology consult per ultrasound recommendations. 08/18/18 21:[address] Teofilo Milian with [facility] and discussed physical exam fin dings, blood work and ultrasound read. He suggests to place patient on Cipro, can take oral NSAIDS for pain at home and call [facility] tomorrow for a follow up appointment. Discussed the plan of care with patient. Patient and verbalized understanding and in agreement with discharge plan. Instructed patient to return to the emergency department if swelling to the testicle worsens, inability to urinate, worsening of pain that is not controlled with pain medication or any other concerning signs or symptoms. Patient states that he has taken Cipro in the past without any issues. Patient states he will follow-up with [facility] urology and call the [place] office tomorrow to schedule a follow-up appointment. - Vital Signs Vital signs: Temp Pulse Resp BP Pulse Ox 98.3 F 62 18 160/82 H 98 08/18/18 22:10 08/18/18 22:10 08/18/18 22:10 08/18/18 22:10 08/18/18 22:10 - Laboratory Result Diagrams: 08/18/18 18:43 08/18/18 18:43 Laboratory results interpreted by me: 08/18/18 08/18/18 18:43 18:43 Eosinophils % 6.1 H BUN 22 H Creatinine 1.50 H Est GFR ( Amer) 58 L Est GFR (Non-Af Amer) 48 L 08/19/18 02:30 Creatinine slightly elevated, UA unremarkable, did discuss these findings with Urology Dr. Teofilo Milian and no further recommendations suggested. - Diagnostic Test Radiology reviewed: Reports reviewed Discharge - Discharge Clinical Impression: Epididymitis, Testicle pain, Testicle swelling, Varicocele present on ultrasound of scrotum Condition: Stable Disposition: HOME, SELF-CARE Instructions: Anti-Inflammatory Medication ([facility]), Epididymitis ([facility]) Additional Instructions: He was seen in the emergency department for testicular pain. You did have a ultrasound performed which did not show a right varicocele. There was also an area of concern to the inferior aspect of the left testicle. I have consulted with Dr. Teofilo Alba and discussed the ultrasound and physical examination findings. He recommends that he be placed on an antibiotic such as ciprofloxacin and to call the office tomorrow to make a follow-up appointment. I am prescribing you a [place] Dosepak which is a narcotic, please drink plenty of fluids while on this medication as it can cause constipation. Please return to the emergency department if you have any increase swelling to the testicles, severe testicular pain, inability to urinate or trouble urinating, fever, severe abdominal pain, or any other concerning signs or symptoms. May use NSAIDs such as ibuprofen for the pain. Testicular Pain Sometimes we can't prove the exact cause of testicle pain. Pain in the testicle can be caused by many different problems, including viral infections of the testicle, urinary tract infection, kidney stones, inflammation of the epididymis (the sac behind the testicle), hernia, dilated veins in the scrotum, or subtle injury. The most serious causes of testicular pain are tumor or twisting of the testicle. An ultrasound exam often shows what's wrong. When the initial testing doesn't show a cause for the pain, we usually refer to a urologist. Rest. Gentle warmth may help with symptoms. It's usually helpful to wear underwear that gives good support to the testicles ("briefs" instead of "boxers"). Call the doctor or return if there is sudden worsening of pain, fever, vomiting, testicle swelling, or discoloration of the scrotum. Quinolone You have been given a new antibiotic from the fluoroquinolone group. Examples are Cipro, Floxin, and Noroxin. This medicine is not related to the penicillins, sulfas, cephalosporins, or tetracyclines. It is often given to patients who are allergic to these drugs. It has been chosen for you either because other drugs are not appropriate, or because of the nature of your probl em. It should not be taken with antacids, as these can decrease its effectiveness. It can be taken without regard to meals. This drug SHOULD NOT BE TAKEN BY CHILDREN, NURSING WOMEN, OR WOMEN. Although usually well-tolerated, common side effects can include nausea and diarrhea. Contact us if you experience any unusual symptoms while on this medication, such as joint pain/swelling, shortness of breath, wheezing, faintness, or hives. Epididymitis You have epididymitis. This is an inflammation of the organ just behind the testicle, called the epididymis. It can be due to infection in the bladder or prostate. Many cases are simply inflammation and are not caused by germs. Epididymitis often develops after heavy lifting or vigorous exercise. Antibiotics and antiinflammatory medication are often prescribed. Elevation of the scrotum with a jock-strap or tight briefs will help with the pain. Pain medication may be required. Either cold packs or warm sitz baths can help with the pain -- ask your doctor which he recommends for your case. It may take 10 to 14 days until the pain is gone. Avoid heavy lifting during this time. Call the doctor or go to the hospital if you develop fever, increasing pain, or severe swelling, or if you fail to improve as expected. Prescriptions: Ciprofloxacin HCl [Cipro 500 mg Tablet] 500 mg PO BID 7 Days #14 tablet Referrals: ANNE MEYERS MD [Primary Care Provider] - Follow up as needed
[2018-08-18] MEDS ORDERED: HYDROCODONE/ACETAMINOPHEN 5-325 MG (6 TAB/ER DISP) PO PRN (22:04)
[2018-08-18] MEDS ORDERED: CIPROFLOXACIN HCL 500 MG TABLET PO ONE (22:05)
[2018-08-18 22:25] VITALS: BP 160/82
== END 2018-08-18 22:25 | disposition home or self-care (01) ==
LOC: ER 17:59
DX: N45.1 Epididymitis (principal); N50.811 Right testicular pain; I86.1 Scrotal varices; I10 Essential (primary) hypertension; Z90.49 Acquired absence of other specified parts of digestive tract
CPT/HCPCS: 99284; 36415; 85025; 80053; 81001; 76870; 93976; A9270 ×4; S0119

== ENCOUNTER 2018-10-01 09:21 | Emergency (ER) | payer MEDICARE, OTHER ==
[2018-10-01 09:32] VITALS: BP 111/73
[2018-10-01] MEDS ORDERED: ASPIRIN 81 MG TABLET, CHEWABLE ONE (09:40)
--- NOTE | 2018-10-01 09:42 | ER Document Report ---
ED Medical Screen (RME) - General Chief Complaint: Chest Pain > 30 Stated Complaint: CHEST PAIN Time Seen by Provider: 10/01/18 09:36 Primary Care Provider: ANNE MEYERS MD [Primary Care Provider] - Follow up as needed Mode of Arrival: Wheelchair Information source: Patient Notes: 58-year-old male presented to ED for complaint of shortness of breath and cold sweats when he went out to mow this morning while it was still cool. He states he felt bad so he came in and sat down 4-minute. He then went and took a shower and felt a lot worse. He developed chest pain or shortness of breath. Came to the emergency room to have this evaluated. He states in July he had a cardiac cath but they did not do stents as there was only a small blockage. He states he has a history of high blood pressure cholesterol melanoma diverticulitis colonoscopy kidney stones and gynecomastia caused by the chemotherapy for the melanoma. He did have a mastectomy bilateral kidney stones surgeries eye surgery: Resection of multiple orthopedic surgeries. Patient is alert oriented respirations regular and unlabored speaking in full sentences . Dictation of this chart was performed using voice recognition software; therefore, there may be some unintended grammatical errors. I have greeted and performed a rapid initial assessment of this patient. A comprehensive ED assessment and evaluation of the patient, analysis of test results and completion of medical decision making process will be conducted by an additional ED providers. TRAVEL OUTSIDE OF THE [place] IN LAST 30 DAYS: No - Related Data Allergies/Adverse Reactions: ceftriaxone [From Rocephin] Allergy (Verified 08/18/18 18:01) Past Medical History - Past Medical History Cardiac Medical History: Reports: Hx Hypertension Denies: Hx Coronary Artery Disease, Hx Heart Attack Pulmonary Medical History: Reports: Hx Pneumonia - CHILD Denies: Hx Asthma, Hx Bronchitis, Hx COPD Neurological Medical History: Denies: Hx Cerebrovascular Accident, Hx Seizures Renal/ Medical History: Reports: Hx Epididymitis, Hx Kidney Stones. Denies: Hx Peritoneal Dialysis GI Medical History: Reports: Hx Diverticulitis, Hx Gastroesophageal Reflux Disease, Hx Colonoscopy Musculoskeltal Medical History: Reports Hx Arthritis, Reports Hx Musculoskeletal Deformity, Reports Hx Musculoskeletal Trauma Psychiatric Medical History: Reports: Hx Anxiety, Hx Depression Traumatic Medical History: Reports: Hx Fractures, Hx Traumatic Brain Injury Past Surgical History: Reports: Hx Adenoidectomy, Hx Bowel Surgery, Hx Cholecystectomy, Hx Neurologic Surgery - Neck 2, Hx Oral Surgery - Dental salazar rgery, Hx Orthopedic Surgery - shoulder, knee, carpal tunnel, Hx Testicular Surgery - Wire for varicoceles, Hx Tonsillectomy, Other - Removed melanoma tumors from back and lymph nodes, ventral hernia repair an - Immunizations Hx Diphtheria, Pertussis, Tetanus Vaccination: Yes - unknown History of Influenza Vaccine for 12/2016 - 05/2017 Season: No Physical Exam - Vital signs Vitals: Temp Pulse Resp BP Pulse Ox 98.3 F 71 16 111/73 98 10/01/18 09:30 10/01/18 09:30 10/01/18 09:30 10/01/18 09:30 10/01/18 09:30 Course - Vital Signs Vital signs: Temp Pulse Resp BP Pulse Ox 98.3 F 71 16 111/73 98 10/01/18 09:30 10/01/18 09:30 10/01/18 09:30 10/01/18 09:30 10/01/18 09:30 Doctor's Discharge - Discharge Referrals: ANNE MEYERS MD [Primary Care Provider] - Follow up as needed
[2018-10-01] MEDS ORDERED: ASPIRIN 81 MG TABLET, CHEWABLE PO ONE (09:49)
--- NOTE | 2018-10-01 10:14 | RADIOLOGY REPORT (SQ) ---
EXAM DESCRIPTION: CHEST 2 VIEWS COMPLETED DATE/TIME: 10/01/2018 9:58 am REASON FOR STUDY: chest pain short of breath COMPARISON: AP chest 03/25/2018 CT chest 04/15/2018 EXAM PARAMETERS: NUMBER OF VIEWS: two views TECHNIQUE: Digital Frontal and Lateral radiographic views of the chest acquired. RADIATION DOSE: NA LIMITATIONS: none FINDINGS: LUNGS AND PLEURA: No opacities, masses or pneumothorax. No pleural effusion. MEDIASTINUM AND HILAR STRUCTURES: No masses or contour abnormalities. HEART AND VASCULAR STRUCTURES: Heart normal size. No evidence for failure. BONES: No acute findings. HARDWARE: Left-sided central line tip superior vena cava. Lower cervical fusion hardware. Clips rig ht upper quadrant post cholecystectomy. OTHER: No other significant finding. IMPRESSION: NO ACUTE RADIOGRAPHIC FINDING IN THE CHEST. TECHNICAL DOCUMENTATION: JOB ID: [id number]- All Rights Reserved Reading location - IP/workstation name: [email or web address]
[2018-10-01 10:18] LABS: ABSOLUTE BASOPHILS # (AUTO) 0.1 10^3/uL (0.0-0.2); ABSOLUTE EOSINOPHILS # (AUTO) 0.4 10^3/uL (0.0-0.6); ABSOLUTE LYMPHOCYTES (AUTO) 1.3 10^3/uL (0.5-4.7); ABSOLUTE MONOCYTES (AUTO) 0.4 10^3/uL (0.1-1.4); ABSOLUTE NEUT (AUTO) 6.2 10^3/uL (1.7-8.2); BASOPHILS % (AUTO) 0.6 % (0-2); EOSINOPHILS % (AUTO) 4.9 % (0-6); HEMATOCRIT 49.4 % (37.9-51.0); HEMOGLOBIN 16.8 g/dL (13.5-17.0); MEAN CORPUSCULAR HEMOGLOBIN 28.7 pg (27.0-33.4); MEAN CORPUSCULAR VOLUME 85 fl (80-97); MONOCYTES % (AUTO) 5.1 % (3-13); PLATELET COUNT 231 10^3/uL (150-450); RED BLOOD COUNT 5.85 10^6/uL (4.35-5.55); RED CELL DISTRIBUTION WIDTH 13.7 % (11.5-14.0); SEGMENTED NEUTROPHILS % (AUTO) 73.4 % (42-78); TOTAL CELLS COUNTED % (AUTO) 100 %; WHITE BLOOD COUNT 8.4 10^3/uL (4.0-10.5)
[2018-10-01 10:26] LABS: APPEARANCE,URINE SLIGHTLY-CLOUDY; BILIRUBIN,URINE NEGATIVE (NEGATIVE); COLOR,URINE YELLOW; GLUCOSE, URINE NEGATIVE (NEGATIVE); KETONES,URINE NEGATIVE (NEGATIVE); LEUKOCYTE ESTERASE,URINE NEGATIVE (NEGATIVE); NITRITE,URINE NEGATIVE (NEGATIVE); PROTEIN,URINE NEGATIVE (NEGATIVE); URINE SPECIFIC GRAVITY 1.021; UROBILINOGEN,URINE NEGATIVE mg/dL (<2.0)
[2018-10-01 10:33] LABS: ALANINE AMINOTRANSFERASE 37 U/L (21-72); ALBUMIN 4.7 g/dL (3.5-5.0); ALKALINE PHOSPHATASE 53 U/L (38-126); ANION GAP 10 (5-19); ASPARTATE AMINO TRANSFERASE 31 U/L (17-59); BILIRUBIN,DIRECT 0.3 mg/dL (0.0-0.4); BLOOD UREA NITROGEN 25 mg/dL (7-20); CALCIUM 10.1 mg/dL (8.4-10.2); CARBON DIOXIDE 26 mmol/L (22-30); CHLORIDE 106 mmol/L (98-107); CREATINE KINASE 72 U/L (55-170); LIPASE 64.4 U/L (23-300); POTASSIUM 4.7 mmol/L (3.6-5.0); SODIUM 141.5 mmol/L (137-145); TOTAL PROTEIN 7.7 g/dL (6.3-8.2)
[2018-10-01 10:36] LABS: GLUCOSE 64 mg/dL (75-110)
[2018-10-01 10:45] LABS: TROPONIN I < 0.012 ng/mL
[2018-10-01] MEDS ORDERED: NITROGLYCERIN 0.4 MG/TAB 25 TAB/BOTTLE SL PRN (10:59)
[2018-10-01] MEDS ORDERED: NORMAL SALINE 1000 ML 1,000 ML IV ONE (10:59)
--- NOTE | 2018-10-01 11:05 | ER Document Report ---
ED General - General Chief Complaint: Chest Pain > 30 Stated Complaint: CHEST PAIN Time Seen by Provider: 10/01/18 09:36 Primary Care Provider: ANNE MEYERS MD [Primary Care Provider] - Follow up as needed Mode of Arrival: Wheelchair TRAVEL OUTSIDE OF THE [place] IN LAST 30 DAYS: No - HPI Notes: Patient is a 58-year-old male that presents to the emergency department for chief complaint of chest pain. Patient states he went out to mow the lawn this morning and started to develop a substernal chest heaviness. He states it was initially more severe than it is currently. The heaviness has been constant since onset this morning. He reports coming in from outside feeling diaphoretic, hot and lightheaded. Patient took a cool shower and laid down to elevate his legs which he states did improve the lightheadedness but the chest pain persisted so he came to the emergency room. Patient does report history of CAD. He had heart catheterization in May which showed CAD with no stent double lesions. He has been compliant with all medications. He does take low-dose Coumadin daily for his left port. He has a history of cancer. Patient denies history of DVT/PE, recent hospitalization, long travel or recent surgery. Patient also states he has a painful ulcer in the back of his right mouth that he noticed 3 days ago. He has not tried any [id number] medicine for the ulcer. Past Medical History: CAD, melanoma, hypertension, hyperlipidemia Past Surgical History: Mastectomy Social History: Denies drugs alcohol and tobacco Family History: Reviewed and noncontributory for presenting illness Allergies: Reviewed, see documented allergy list. REVIEW OF SYSTEMS: CONSTITUTIONAL : No fever No chills No diaphoresis No recent illness EENT: No vision changes No congestion No sore throat CARDIOVASCULAR: chest pain No palpitations RESPIRATORY: shortness of breath No cough No difficulty breathing GASTROINTESTINAL: No abdominal pain No nausea No vomiting No diarrhea GENITOURINARY: No dysuria No hematuria No difficulty urinating MUSCULOSKELETAL: No back pain No leg pain No arm pain SKIN: No rashes No lesions LYMPHATIC: No swollen, enlarged glands. NEUROLOGICAL: lightheadedness No headache No weakness No paresthesias PSYCHIATRIC: No anxiety No depression PHYSICAL EXAMINATION: Vital signs reviewed, nursing noted reviewed. GENERAL: Well-appearing, well-nourished and in no acute distress. HEAD: Atraumatic, normocephalic. EYES: Eyes appear normal, extraocular movements intact, sclera anicteric, conjunctiva are normal. ENT: nares patent, oropharynx clear without exudates. Moist mucous membranes. NECK: Normal range of motion, supple without lymphadenopathy LUNGS: Breath sounds clear to auscultation bilaterally and equal. No wheezes rales or rhonchi. HEART: Regular rate and rhythm without murmurs ABDOMEN: Soft, nontender, normoactive bowel sounds. No rebound, guarding, or rigidity. No masses appreciated. EXTREMITIES: Left upper extremity Mediport, nontender, good range of motion, no pitting or edema. Negative Homans sign bilaterally. NEUROLOGICAL: No focal neurological deficits. Moves all extremities spontaneously Motor and sensory grossly intact on exam. PSYCH: Normal mood, normal affect. SKIN: Warm, Dry, normal turgor, no rashes or lesions noted on exposed skin - Related Data Allergies/Adverse Reactions: ceftriaxone [From Rocephin] Allergy (Verified 08/18/18 18:01) Past Medical History - General Information source: Patient - Social History Smoking Status: Former Smoker Chew tobacco use (# tins/day): No Frequency of alcohol use: None Drug Abuse: None Family History: Reviewed & Not Pertinent, Arthritis, Hypertension Patient has suicidal ideation: No Patient has homicidal ideation: No - Past Medical History Cardiac Medical History: Reports: Hx Hypertension Denies: Hx Coronary Artery Disease, Hx Heart Attack Pulmonary Medical History: Reports: Hx Pneumonia - CHILD Denies: Hx Asthma, Hx Bronchitis, Hx COPD Neurological Medical History: Denies: Hx Cerebrovascular Accident, Hx Seizures Renal/ Medical History: Reports: Hx Epididymitis, Hx Kidney Stones. Denies: Hx Peritoneal Dialysis GI Medical History: Reports: Hx Diverticulitis, Hx Gastroesophageal Reflux Disease, Hx Colonoscopy Musculoskeletal Medical History: Reports Hx Arthritis, Reports Hx Muscul oskeletal Deformity, Reports Hx Musculoskeletal Trauma Psychiatric Medical History: Reports: Hx Anxiety, Hx Depression Traumatic Medical History: Reports: Hx Fractures, Hx Traumatic Brain Injury Past Surgical History: Reports: Hx Adenoidectomy, Hx Bowel Surgery, Hx Cholecystectomy, Hx Neurologic Surgery - Neck 2, Hx Oral Surgery - Dental surgery, Hx Orthopedic Surgery - shoulder, knee, carpal tunnel, Hx Testicular Surgery - Wire for varicoceles, Hx Tonsillectomy, Other - Removed melanoma tumors from back and lymph nodes, ventral hernia repair an - Immunizations Hx Diphtheria, Pertussis, Tetanus Vaccination: Yes - unknown Physical Exam - Vital signs Vitals: Temp Pulse Resp BP Pulse Ox 98.3 F 71 16 111/73 98 10/01/18 09:30 10/01/18 09:30 10/01/18 09:30 10/01/18 09:30 10/01/18 09:30 Course - Re-evaluation Re-evalutation: 10/01/18 11:03 Vitals reviewed. Nursing notes reviewed. Patient is well-appearing and stable. His EKG shows no acute ischemia. Patient's heart catheterization was performed at this facility in May which I did review. He had one vessel CAD with medical management. Patient did receive aspirin in triage. He states he is feeling much better but still does feel some heaviness in his substernal region. Patient was ordered nitro for his continued chest heaviness. CTA has been ordered to evaluate for underlying pulmonary embolism because of his risk factor of melanoma. Patient's initial troponin is negative. His heart score is 4. Chest x-ray shows no pneumothorax or other acute cardiopulmonary process. Laboratory 10/01/18 10/01/18 10/01/18 10:06 10:06 10:06 WBC 8.4 RBC 5.85 H Hgb 16.8 Hct 49.4 MCV 85 MCH 28.7 MCHC 34.0 RDW 13.7 Plt Count 231 Seg Neutrophils % 73.4 Lymphocytes % 16.0 Monocytes % 5.1 Eosinophils % 4.9 Basophils % 0.6 Absolute Neutrophils 6.2 Absolute Lymphocytes 1.3 Absolute Monocytes 0.4 Absolute Eosinophils 0.4 Absolute Basophils 0.1 Sodium 141.5 Potassium 4.7 Chloride 106 Carbon Dioxide 26 Anion Gap 10 BUN 25 H Creatinine 1.50 H Est GFR ( Amer) 58 L Est GFR (Non-Af Amer) 48 L Glucose 64 L Calcium 10.1 Total Bilirubin 1.0 Direct Bilirubin 0.3 Neonat Total Bilirubin Not Reportable Neonat Direct Bilirubin Not Reportable Neonat Indirect Bili Not Reportable AST 31 ALT 37 Alkaline Phosphatase 53 Creatine Kinase 72 CK-MB (CK-2) 0.70 Troponin I < 0.012 Total Protein 7.7 Albumin 4.7 Lipase 64.4 Urine Color Urine Appearance Urine pH Ur Specific [place] Urine Protein Urine Glucose (UA) Urine Ketones Urine Blood Urine Nitrite Urine Bilirubin Urine Urobilinogen Ur Leukocyte Esterase Urine WBC (Auto) Urine RBC (Auto) U Hyaline Cast (Auto) Urine Bacteria (Auto) Urine Mucus (Auto) Urine Ascorbic Acid 10/01/18 10:06 WBC RBC Hgb Hct MCV MCH MCHC RDW Plt Count Seg Neutrophils % Lymphocytes % Monocytes % Eosinophils % Basophils % Absolute Neutrophils Absolute Lymphocytes Absolute Monocytes Absolute Eosinophils Absolute Basophils Sodium Potassium Chloride Carbon Dioxide Anion Gap BUN Creatinine Est GFR ( Amer) Est GFR (Non-Af Amer) Glucose Calcium Total Bilirubin Direct Bilirubin Neonat Total Bilirubin Neonat Direct Bilirubin Neonat Indirect Bili AST ALT Alkaline Phosphatase Creatine Kinase CK-MB (CK-2) Troponin I Total Protein Albumin Lipase Urine Color YELLOW Urine Appearance SLIGHTLY-CLOUDY Urine pH 5.0 Ur Specific [place] 1.021 Urine Protein NEGATIVE Urine Glucose (UA) NEGATIVE Urine Ketones NEGATIVE Urine Blood NEGATIVE Urine Nitrite NEGATIVE Urine Bilirubin NEGATIVE Urine Urobilinogen NEGATIVE Ur Leukocyte Esterase NEGATIVE Urine WBC (Auto) 1 Urine RBC (Auto) 0 U Hyaline Cast (Auto) 21 Urine Bacteria (Auto) TRACE Urine Mucus (Auto) MANY Urine Ascorbic Acid NEGATIVE Chest X-Ray 10/01/18 09:45 IMPRESSION: NO ACUTE RADIOGRAPHIC FINDING IN THE CHEST. 10/01/18 11:59 CT of the chest shows no pulmonary embolism or other acute process. On reeval uation patient did have improvement of his chest pain after sublingual nitro. He states it is almost completely resolved. Nitropaste has been ordered to be placed on patient's chest. Given his heart score of 4 and known CAD he will be admitted to the hospital for continued monitoring of his chest pain. Care discussed with Dr. Mills and Emma Tierney who accepts patient for admission. - Vital Signs Vital signs: Temp Pulse Resp BP Pulse Ox 98.3 F 71 16 111/73 98 10/01/18 09:30 10/01/18 09:30 10/01/18 09:30 10/01/18 09:30 10/01/18 09:30 - Laboratory Result Diagrams: 10/01/18 10:06 10/01/18 10:06 Laboratory results interpreted by me: 10/01/18 10/01/18 10:06 10:06 RBC 5.85 H BUN 25 H Creatinine 1.50 H Est GFR ( Amer) 58 L Est GFR (Non-Af Amer) 48 L Glucose 64 L - EKG Interpretation by Me Additional EKG results interpreted by me: 10/01/18 11:05 Interpreted by myself 0923: Normal sinus rhythm, rate 69, normal axis, no ectopy, no STEMI Discharge - Discharge Clinical Impression: Chest pain Qualifiers: Chest pain type: unspecified Qualified Code(s): R07.9 - Chest pain, unspecified Condition: Stable Disposition: ADMITTED OBSERVATION Admitting Provider: Lina (Hospitalist) Unit Admitted: Telemetry Referrals: ANNE MEYERS MD [Primary Care Provider] - Follow up as needed
--- NOTE | 2018-10-01 11:52 | RADIOLOGY REPORT (SQ) ---
EXAM DESCRIPTION: CTA CHEST COMPLETED DATE/TIME: 10/01/2018 11:37 am REASON FOR STUDY: chest pain shortness of breath COMPARISON: CT chest 04/15/2018, 01/23/2017 TECHNIQUE: CT scan of the chest performed using helical scanning technique with dynamic intravenous contrast injection. Images reviewed with lung, soft tissue and bone windows. Reconstructed coronal and sagittal MPR images reviewed. Additional 3 dimensional post-processing performed to develop Maximal Intensity Projection images (AZ P). All images stored on PACS. All CT scanners at this facility use dose modulation, iterative reconstruction, and/or weight based d osing when appropriate to reduce radiation dose to as low as reasonably achievable (ALARA). [facility]: Dose Right [facility]: CareDose [facility]: Dose Right [facility]: Teradose 4D [facility]: [facility] [employer] CONTRAST TYPE AND DOSE: contrast/concentration: Isovue mg/ml; Total Contrast Delivered: 70.0 ml; To fredo Saline Delivered: 80.0 ml Contrast bolus optimized for the pulmonary arteries and thoracic aorta. RENAL FUNCTION: Creatinine 1.5 RADIATION DOSE: CT Rad equipment meets quality standard of care and radiation dose reduction techniq ues were employed. CTDIvol: 19.8 - 21.7 mGy. DLP: 793 mGy-cm. . LIMITATIONS: None. FINDINGS: LUNGS AND PLEURA: No masses, infiltrates, or pneumothorax. No pleural effusions or pleura l calcifications. Benign calcified granuloma right posterior lung base. AORTA AND GREAT VESSELS: No aneurysm or thoracic aortic dissection. HEART: No pericardial effusion. No significant coronary artery calcifications. PULMONARY ARTERIES: No emboli visualized in the main pulmonary arteries or the segmental branches. HILAR AND MEDIASTINAL STRUCTURES: No identified masses or abnormal nodes. HARDWARE: Left-sided permanent central line tip superior vena cava UPPER ABDOMEN: Clips post cholecystectomy THYROID AND OTHER SOFT TISSUES: No masses. No adenopathy. BONES: No acute or significant finding. 3D MIPS: Confirm above findings. OTHER: No other significant finding. IMPRESSION: No acute findings. No CT angio evidence of acute pulmonary emboli or thoracic aortic di ssection. No focal infiltrates. COMMENT: Quality ID # [id number]: Final reports with documentation of one or more dose reduction techniques (e.g., Automated exposure control, adjustment of the mA and/or kV according to patient size, use of iterative reconstruction technique) TECHNICAL DOCUMENTATION: JOB ID: [id number]- All Rights Reserved Reading location - IP/workstation name: [email or web address]
[2018-10-01] MEDS ORDERED: NITROGLYCERIN 2% OINTMENT 1 GM PACKET TP ONE (11:59)
--- NOTE | 2018-10-01 15:46 | H&P/Discharge Summary ---
Discharge Summary Admission Date/PCP: 10/01/18 12:13 ANNE MEYERS MD Discharge Date: 10/01/18 Resuscitation Status: Full Code Consulting Provider: Dr. Romero - Discharge Diagnosis (1) Chest pain Is this a current diagnosis for this admission?: Yes Summary: Patient presented with sternal chest pain, described as constant pressure, nonradiating, and associated with dyspnea that occurred 1 hour into mowing the lawn with a push mower. He presented to the emergency department after taking a shower to attempt to cool off without relief of his symptoms. He is provided full dose aspirin and sublingual nitroglycerin without relief. He reports that he developed a headache from the sublingual nitro and then his pain began to slowly alexis approximately 20 minutes later. Laboratory evaluation is unremarkable. Chest x-ray is benign. EKG is unchanged from previously; no ST segment changes or acute findings. Troponins were negative x2. Of note, the patient had a cardiac stress test and catheterization done in May 2018 at our facility. Spoke with Dr. Meyers regarding appropriateness of discharging to home with outpatient cardiology follow-up. Dr. Meyers advised continuing aspirin, home dose Coumadin, home dose lisinopril, and starting amlodipine 2.5 mg daily. As the patient is established with Dr. Meyers, he will follow-up in the office on Friday for further evaluation and care. (2) Heat effect Is this a current diagnosis for this admission?: Yes Summary: Likely source of patient's chest discomfort. Patient reports chest discomfort/dyspnea that occured 1 hour into mowing lawn w/ push mower in high heat/humidity this morning. Symptoms resolved w/ rest and moving indoors to cooler temperatures. Renal function stable. CK acceptable. Troponins x 2 negative. Patient advised to remain hydrated and avoid over exertion/heat exposure. (3) CKD (chronic kidney disease) Is this a current diagnosis for this admission?: Yes Summary: Cr 1.50/BUN 25; stable and at baseline. Optimize cardiac function as above. Routine follow up per PCP. Home Medications: Amitriptyline HCl [Elavil 50 mg Tablet] 50 mg PO DAILY 10/01/18 Bupropion HCl [Bupropion HCl Sr] 150 mg PO Q12 10/01/18 Calcium Carbonate [Calcium] 600 mg PO DAILY 10/01/18 Cholecalciferol (Vitamin D3) [Vitamin D3 1000 Unit Tablet] 1,000 unit PO DAILY 10/01/18 Gabapentin [Neurontin] 600 mg PO Q12 10/01/18 Lisinopril [Prinivil 5 mg Tablet] 5 mg PO Q12 10/01/18 Tizanidine HCl [Zanaflex 4 mg Tablet] 4 mg PO Q12 10/01/18 Warfarin Sodium [Coumadin 1 mg Tablet] 1 mg PO DAILY 10/01/18 Allergies/Adverse Reactions: ceftriaxone [From Rocephin] Allergy (Verified 08/18/18 18:01) Discharge Diet: Cardiac Discharge Activity: Activity As Tolerated, Balance Activity w/Rest History of Present Illness Admission Date/PCP: 10/01/18 12:13 ANNE MEYERS MD Patient complains of: chest pain History of Present Illness: 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 Pain described as pressure, constant, and nonradiating that began 1 hour into mowing his lawn with a push mower earlier this morning. Of note the temperature was 88 degrees with a humidity of 99%. Patient reports that he bec shivam flushed and diaphoretic. He returned to his home and took a shower and when his pain was not relieved presented to the emergency department where he was provided with aspirin and nitro. He reports that approximately 30 minutes later his chest discomfort began to alexis. Evaluation in the emergency department revealed Normal CBC, baseline renal function, normal troponin, negative urinalysis, benign chest x-ray and EKG. Review of recent medical records shows that the patient had a stress test and cardiac catheterization done at our facility May 2018. Repeat troponin four hours later also normal. Therefore, Dr. Meyers was contacted for recommendations. Dr. Meyers advises to continue the patient's daily aspirin, Coumadin, and lisinopril therapy. Start amlodipine 2.5 mg. Patient is established with Dr. Romero and will follow-up in the office early next week. Evaluation plan of care reviewed with the patient. He and his understand and are comfortable with plans to discharge to home. Patient is advised to remain hydrated and avoid heat exposure. He is instructed to take his medications as prescribed. He is recommended to follow-up with his primary care provider within [address] Meyers as previously discussed. He is also instructed to return to the emergency department as needed for any concerning symptoms. Past Medical History Cardiac Medical History: Reports: Hypertension Denies: Coronary Artery Disease, Myocardial Infarction Pulmonary Medical History: Reports: Pneumonia - CHILD Denies: Asthma, Bronchitis, Chronic Obstructive Pulmonary Disease (COPD) Neurological Medical History: Denies: Seizures GI Medical History: Reports: Diverticulitis, Gastroesophageal Reflux Disease Musculoskeltal Medical History: Reports: Arthritis Psychiatric Medical History: Reports: Depression Traumatic Medical History: Reports: Traumatic Brain Injury Hematology: Denies: Anemia Past Surgical History Past Surgical History: Reports: Cholecystectomy, Orthopedic Surgery - shoulder, knee, carpal tunnel, Tonsillectomy, Other - Removed melanoma tumors from back and lymph nodes, ventral hernia repair an Social History Information Source: Patient Smoking Status: Former Smoker Frequency of Alcohol Use: Rare Hx Recreational Drug Use: No Hx Prescription Drug Abuse: No - Advance Directive Resuscitation Status: Full Code Family History Family History: Reviewed & Not Pertinent, Arthritis, Hypertension Parental Family History Reviewed: Yes Children Family History Reviewed: Yes Sibling(s) Family History Reviewed.: Yes Review of Systems Constitutional: ABSENT: chills, fever(s), headache(s), weight gain, weight loss Eyes: ABSENT: visual disturbances Ears: ABSENT: hearing changes Cardiovascular: PRESENT: chest pain, dyspnea on exertion. ABSENT: edema, orthropnea, palpitations Respiratory: ABSENT: cough, hemoptysis Gastrointestinal: ABSENT: abdominal pain, constipation, diarrhea, hematemesis, hematochezia, nausea, vomiting Genitourinary: ABSENT: dysuria, hematuria Musculoskeletal: ABSENT: joint swelling Integumentary: ABSENT: rash, wounds Neurological: ABSENT: abnormal gait, abnormal speech, confusion, dizziness, focal weakness, syncope Psychiatric: ABSENT: anxiety, depression, homidical ideation, suicidal ideation Endocrine: ABSENT: cold intolerance, heat intolerance, polydipsia, polyuria Hematologic/Lymphatic: ABSENT: easy bleeding, easy bruising Physical Exam Vital Signs: Temp Pulse Resp BP Pulse Ox 98.3 F 71 16 111/73 98 10/01/18 09:30 10/01/18 09:30 10/01/18 09:30 10/01/18 09:30 10/01/18 09:30 Intake & Output 09/30/18 10/01/18 10/02/18 06:59 06:59 06:59 Weight 101.1 kg General appearance: PRESENT: no acute distress, well-developed, well-nourished - overweight Head exam: PRESENT: atraumatic, normocephalic Eye exam: PRESENT: conjunctiva pink, EOMI, PERRLA. ABSENT: scleral icterus Ear exam: PRESENT: normal external ear exam Mouth exam: PRESENT: moist, tongue midline Neck exam: ABSENT: carotid bruit, JVD, lymphadenopathy, thyromegaly Respiratory exam: PRESENT: clear to auscultation radha, symmetrical, unlabored. ABSENT: rales, rhonchi, wheezes Cardiovascular exam: PRESENT: bradycardia, +S1, +S2. ABSENT: diastolic murmur, rubs, systolic murmur Pulses: PRESENT: normal dorsalis pedis pul Vascular exam: PRESENT: normal capillary refill GI/Abdominal exam: PRESENT: normal bowel sounds, soft. ABSENT: distended, guarding, mass, organolmegaly, rebound, tenderness Rectal exam: PRESENT: deferred Extremities exam: PRESENT: full ROM. ABSENT: calf tenderness, clubbing, pedal edema Neurological exam: PRESENT: alert, awake, oriented to person, oriented to place, oriented to time, oriented to situation, CN II-XII grossly intact. ABSENT: motor sensory deficit Psychiatric exam: PRESENT: appropriate affect, normal mood. ABSENT: homicidal ideation, suicidal ideation Skin exam: PRESENT: dry, intact, warm. ABSENT: cyanosis, rash Results Laboratory Results: 10/01/18 10:06 10/01/18 10:06 10/01/18 10/01/18 10/01/18 10:06 10:06 10:06 WBC 8.4 RBC 5.85 H Hgb 16.8 Hct 49.4 MCV 85 MCH 28.7 MCHC 34.0 RDW 13.7 Plt Count 231 Seg Neutrophils % 73.4 Lymphocytes % 16.0 Monocytes % 5.1 Eosinophils % 4.9 Basophils % 0.6 Absolute Neutrophils 6.2 Absolute Lymphocytes 1.3 Absolute Monocytes 0.4 Absolute Eosinophils 0.4 Absolute Basophils 0.1 Sodium 141.5 Potassium 4.7 Chloride 106 Carbon Dioxide 26 Anion Gap 10 BUN 25 H Creatinine 1.50 H Est GFR ( Amer) 58 L Est GFR (Non-Af Amer) 48 L Glucose 64 L Calcium 10.1 Total Bilirubin 1.0 AST 31 ALT 37 Alkaline Phosphatase 53 Total Protein 7.7 Albumin 4.7 Lipase 64.4 Urine Color YELLOW Urine Appearance SLIGHTLY-CLOUDY Urine pH 5.0 Ur Specific [place] 1.021 Urine Protein NEGATIVE Urine Glucose (UA) NEGATIVE Urine Ketones NEGATIVE Urine Blood NEGATIVE Urine Nitrite NEGATIVE Ur Leukocyte Esterase NEGATIVE Urine WBC (Auto) 1 Urine RBC (Auto) 0 10/01/18 10/01/18 10:06 10:06 Creatine Kinase 72 CK-MB (CK-2) 0.70 Troponin I < 0.012 Impressions: Chest X-Ray 10/01/18 09:45 IMPRESSION: NO ACUTE RADIOGRAPHIC FINDING IN THE CHEST. Chest/Abdomen CTA 10/01/18 10:59 IMPRESSION: No acute findings. No CT angio evidence of acute pulmonary emboli or thoracic aortic dissection. No focal infiltrates. Qualifiers - * PATIENT BEING DISCHARGED WITH ANY OF THE FOLLOWING DIAGNOSIS: No Assessment & Plan - Time Time Spent: 50 to 70 Minutes Medications reviewed and adjusted accordingly: Yes - Plan Summary Plan Summary: Discharge to home with self care. Follow up with PCP within 1 week. Follow up with established geomorphologist, Dr. Romero, next week. Return to the emergency department as needed for concerning symptoms.
--- NOTE | 2018-10-01 18:33 | EKG REPORT ---
SEVERITY:- BORDERLINE ECG - SINUS RHYTHM PROBABLE LEFT ATRIAL ABNORMALITY BORDERLINE LEFT AXIS DEVIATION : Confirmed by: Sheldon Crowder 01-Oct-2018 18:33:09
== END 2018-10-01 16:01 | disposition admitted as inpatient to this hospital (09) ==
LOC: ER 09:21 → EH 12:13 → UNDOADMOB 12:13 → ER 16:01 → UNDODISOB 16:01
DX: R07.9 Chest pain, unspecified (principal); R61 Generalized hyperhidrosis; I12.9 Hypertensive chronic kidney disease with stage 1 through stage 4 chronic kidney disease, or unspecified chronic kidney disease; N18.9 Chronic kidney disease, unspecified; Z87.442 Personal history of urinary calculi; Z90.49 Acquired absence of other specified parts of digestive tract; T67.5XXA Heat exhaustion, unspecified, initial encounter; X30.XXXA Exposure to excessive natural heat, initial encounter; Y93.H9 Activity, other involving exterior property and land maintenance, building and construction; Y92.007 Garden or yard of unspecified non-institutional (private) residence as the place of occurrence of the external cause; Z79.01 Long term (current) use of anticoagulants; Z79.82 Long term (current) use of aspirin
CPT/HCPCS: 93005; 99285; 36415; 82553; 82550; 83690; 85025; 80053; 81001; 84484; 71046; 71275; 93010; J7030; J1642

== ENCOUNTER → 2018-11-18 | Outpatient (CLI) | payer MEDICARE, OTHER ==
--- NOTE | 2018-11-18 18:13 | RADIOLOGY REPORT (SQ) ---
EXAM DESCRIPTION: U/S SCROTUM W/DOPPLER COMPLETED DATE/TIME: 11/18/2018 4:55 pm REASON FOR STUDY: N44.04 TORSION OF APPENDIX EPIDIDYMIS N44.04 TORSION OF APPENDIX EPIDIDYMIS COMPARISON: Scrotal ultrasound 08/18/2018, 05/31/2017 TECHNIQUE: Static and realtime troy scale imaging of the scrotum and testes. Selected color Doppler and spectral images recorded to document blood flow. LIMITATIONS: None. FINDINGS: RIGHT: TESTICLE: Normal size, 4.7 x 2.7 x 1.9 cm in size. Normal echotexture. Normal blood flow. No mass. EPIDIDYMIS: Epididymis is mildly diffusely enlarged, with tubular ectasia. 9 mm cyst in the epididym al head. HYDROCELE OR VARICOCELE: Trace hydrocele. No varicocele HERNIA OR EXTRA-TESTICULAR MASS: No. OTHER: No other significant finding. LEFT: TESTICLE: Normal size, 4.3 x 3 x 1.5 cm in size. Normal echotexture. Normal blood flow. No mass. EPIDIDYMIS: Epididymis is mildly diffusely enlarged with tubular ectasia. There is a palpable nodule along the inferior aspect of the left epididymis. This is tender on exam, and measures 8 x 7 mm in size. This could represent tortion of the epididymal appendix. HYDROCELE OR VARICOCELE: Trace hydrocele. No varicocele HERNIA OR EXTRA-TESTICULAR MASS: No. OTHER: No other significant finding. IMPRESSION: No sonographic evidence of testicular torsion. Tender palpable abnormality inferior aspect left epididymis could represent torsion of the epididymal appendix. This correlates with an 8 x 7 mm nodule. TECHNICAL DOCUMENTATION: JOB ID: [id number] [employer]- All Rights Reserved Reading location - IP/workstation name: [email or web address]
== END ==
LOC: RAD 15:45
PROVIDERS: ATTEND Internal Medicine
DX: N44.04 Torsion of appendix epididymis (principal)
CPT/HCPCS: 76870; 93976

== ENCOUNTER → 2018-11-22 | Outpatient (CLI) | payer MEDICARE, OTHER ==
--- NOTE | 2018-11-23 11:13 | RADIOLOGY REPORT (SQ) ---
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 TECHNIQUE: Blood glucose level was verified. Above dose of FDG was injected intravenously. 2-D seg mented attenuation correction images were obtained through the entire body. Noncontrast CT images we re obtained for attenuation correction and fusion with emission images. CT images were performed wit hout oral or intravenous contrast and are not sensitive for parenchymal lesions. A series of overlap ping emission PET images were obtained. Images reviewed and manipulated at independent work station by the radiologist. Images stored on PACS. LIMITATIONS: None. FINDINGS: HEAD AND NECK: No areas of abnormal metabolic activity in the soft tissues of the head and neck. CHEST: No areas of abnormal metabolic activity in the chest. ABDOMEN AND PELVIS: No areas of abnormal metabolic activity in the abdomen or pelvis. Expected physi ologic activity is present in the genitourinary system and bowel. LOWER EXTREMITIES: No areas of abnormal metabolic activity in the soft tissues of the lower extremiti es. BONES: No abnormal metabolic activity in the visualized skeleton. ADDITIONAL CT FINDINGS: Prior cervical fusion and cholecystectomy. Diffuse bilateral retroperitoneal embolization coils from varicocele embolization. Left-sided permanent central line tip superior fer a cava. OTHER: Liver background activity 2.3 SUV. Blood pool background activity 1.9 SUV IMPRESSION: No hypermetabolic lesions over the whole body worrisome for recurrent melanoma TECHNICAL DOCUMENTATION: JOB ID: [id number]- All Rights Reserved Reading location - IP/workstation name: [email or web address]
== END ==
LOC: RAD 17:11
PROVIDERS: ATTEND Internal Medicine
DX: C43.59 Malignant melanoma of other part of trunk (principal)
CPT/HCPCS: 78816; A9552

== ENCOUNTER 2018-11-26 08:28 | Emergency (ER) | payer MEDICARE, OTHER ==
--- NOTE | 2018-11-26 09:11 | ER Document Report ---
ED General - General Chief Complaint: Head Injury Stated Complaint: FALL/HEAD, NECK, RIGHT LEG PAIN Time Seen by Provider: 11/26/18 08:55 Primary Care Provider: MERVAT MICHELE MD [Primary Care Provider] - Follow up in 3-5 days Notes: Patient is a 58-year-old male who presents to the emergency department after falling out of the shower and hitting his head on the countertop. Patient states that he has history of cervical spine surgery last year and he states that he has neck pain and would like to make sure that his hardware in his neck is okay. Denies any dizziness, weakness, or loss of consciousness. Patient has a past medical history of hypertension, melanoma, and mental health issues. He is currently on Coumadin for his report from receiving cancer. He has been in remission for the past 3 years. He also has a scrape to his right lateral lower leg, but states that it does not hurt. He is able to walk with no difficulty. Denies any numbness or tingling. Denies any weakness. TRAVEL OUTSIDE OF THE [place] IN LAST 30 DAYS: No - Related Data Allergies/Adverse Reactions: ceftriaxone [From Rocephin] Allergy (Verified 11/26/18 08:29) Past Medical History - Social History Smoking Status: Former Smoker Family History: Reviewed & Not Pertinent, Arthritis, Hypertension - Past Medical History Cardiac Medical History: Reports: Hx Hypertension Denies: Hx Coronary Artery Disease, Hx Heart Attack Pulmonary Medical History: Reports: Hx Pneumonia - CHILD Denies: Hx Asthma, Hx Bronchitis, Hx COPD Neurological Medical History: Denies: Hx Cerebrovascular Accident, Hx Seizures Renal/ Medical History: Reports: Hx Epididymitis, Hx Kidney Stones. Denies: Hx Peritoneal Dialysis GI Medical History: Reports: Hx Diverticulitis, Hx Gastroesophageal Reflux Disease, Hx Colonoscopy Musculoskeletal Medical History: Reports Hx Arthritis, Reports Hx Musculoskeletal Deformity, Reports Hx Musculoskeletal Trauma Psychiatric Medical History: Reports: Hx Anxiety, Hx Depression Traumatic Medical History: Reports: Hx Fractures, Hx Traumatic Brain Injury Past Surgical History: Reports: Hx Adenoidectomy, Hx Bowel Surgery, Hx Cholecystectomy, Hx Neurologic Surgery - Neck 2, Hx Oral Surgery - Dental surg [place], Hx Orthopedic Surgery - shoulder, knee, carpal tunnel, Hx Testicular Surgery - Wire for varicoceles, Hx Tonsillectomy, Other - Removed melanoma tumors from back and lymph nodes, ventral hernia repair an - Immunizations Hx Diphtheria, Pertussis, Tetanus Vaccination: Yes - unknown Review of Systems - Review of Systems Notes: REVIEW OF SYSTEMS: CONSTITUTIONAL : Denies recent illness. Denies recent unintentional weight loss. Denies fever, chills, or sweats. EENT: Denies eye, ear, throat, or mouth pain, discharge, or symptoms. Denies nasal or sinus congestion. CARDIOVASCULAR: Denies chest pain. RESPIRATORY: Denies shortness of breath, cough, congestion, difficulty breathing, or wheezing. GASTROINTESTINAL: Denies nausea, vomiting, and diarrhea. Denies abdominal pain. Denies constipation. GENITOURINARY: Denies difficulty urinating, burning, blood in urine, urgency or frequency. MUSCULOSKELETAL: See HPI denies joint pain or swelling. SKIN: Denies rash, itchiness, or lesions HEMATOLOGIC : Denies easy bruising or bleeding. LYMPHATIC: Denies swollen, painful, enlarged glands. NEUROLOGICAL: Denies no numbness or tingling denies weakness. Denies headache. Denies altered mental status. Denies alteration in speech. PSYCHIATRIC: Denies stress, anxiety, alteration in sleep patterns, or depression. All other systems reviewed and negative. Physical Exam - Vital signs Vitals: Temp Pulse Resp BP Pulse Ox 97.9 F 66 17 128/77 H 96 11/26/18 08:33 11/26/18 08:33 11/26/18 08:33 11/26/18 08:33 11/26/18 08:33 - Notes Notes: PHYSICAL EXAMINATION: GENERAL: Appears well, healthy, well-nourished, no acute distress. HEAD: Normocephalic, atraumatic. EYES: PERRL, conjunctiva normal, all extraocular movements intact, sclera nonic teric ENT: Moist mucous membranes. NECK: Supple, no noticeable swelling, redness, rash. Normal range of motion. LUNGS: Equal breath sounds bilaterally and clear to auscultation. No wheezes rales or rhonchi. CARDIOVASCULAR: S1-S2, regular rate, regular rhythm. Radial pulses 2+, normal. ABDOMEN: Normoactive bowel sounds. Soft, nontender, no guarding, no rebound tenderness, and no masses palpated. EXTREMITIES: Normal strength and range of motion, no pitting or edema. No cyanosis. NEUROLOGICAL: Moves all extremities upon command. Strength 5/5 in all extremities. PSYCH: Normal mood, normal affect. SKIN: Warm, dry. No rash, lesions, ulcerations noted. Normal skin turgor. Course - Re-evaluation Re-evalutation: 11/26/18 10:54 Patient's chemistry shows a slight elevation in his BUN and creatinine, which is normal from him from his visit on October 01 of this year. His hematology is unremarkable. His CT of his head and C-spine are negative for any acute findings. He has normal strength in all extremities. No neurological deficits noted. At this time he will follow-up with his primary care provider. He states that he is only on a small dose of Coumadin. I instructed him that he can take ibuprofen and Tylenol as needed for his pain. He is in agreement with this plan. Follow-up precautions were given. Verbal discharge instructions were given to the patient. They verbalized understanding. They are stable for discharge. - Vital Signs Vital signs: Temp Pulse Resp BP Pulse Ox 97.8 F 56 L 20 139/83 H 100 11/26/18 11:10 11/26/18 11:10 11/26/18 11:10 11/26/18 11:10 11/26/18 11:10 - Laboratory Result Diagrams: 11/26/18 09:22 11/26/18 09:22 Laboratory results interpreted by me: 11/26/18 09:22 BUN 21 H Creatinine 1.41 H Est GFR (MDRD) Non-Af 52 L Discharge - Discharge Clinical Impression: Neck pain, Head contusion Fall Qualifiers: Encounter type: initial encounter Qualified Code(s): W19.XXXA - Unspecified fall, initial encounter Condition: Stable Disposition: HOME, SELF-CARE Additional Instructions: You were seen today in the emergency department after a fall. Your CT of your head and neck was normal. All your hardware was intact. Your labs were normal. Please follow-up with your primary care provider regards to this visit. You can take ibuprofen 600 mg and acetaminophen 1000 mg every 6 hours as needed for your pain. Make sure you get plenty of rest. Referrals: MERVAT MICHELE MD [Primary Care Provider] - Follow up in 3-5 days
[2018-11-26] MEDS ORDERED: ACETAMINOPHEN 325 MG TABLET PO ONE (09:13)
[2018-11-26 09:29] LABS: ABSOLUTE EOSINOPHILS # (AUTO) 0.3 10^3/uL (0.0-0.6); ABSOLUTE LYMPHOCYTES (AUTO) 1.4 10^3/uL (0.5-4.7); ABSOLUTE MONOCYTES (AUTO) 0.5 10^3/uL (0.1-1.4); ABSOLUTE NEUT (AUTO) 4.3 10^3/uL (1.7-8.2); BASOPHILS % (AUTO) 0.5 % (0-2); EOSINOPHILS % (AUTO) 4.6 % (0-6); HEMATOCRIT 43.6 % (37.9-51.0); LYMPHOCYTES % (AUTO) 22.1 % (13-45); MEAN CORPUSCULAR HEMOGLOBIN 28.5 pg (27.0-33.4); MEAN CORPUSCULAR HGB CONC 34.3 g/dL (32.0-36.0); MEAN CORPUSCULAR VOLUME 83 fl (80-97); PLATELET COUNT 179 10^3/uL (150-450); RED BLOOD COUNT 5.25 10^6/uL (4.35-5.55); RED CELL DISTRIBUTION WIDTH 13.8 % (11.5-14.0); SEGMENTED NEUTROPHILS % (AUTO) 65.8 % (42-78); TOTAL CELLS COUNTED % (AUTO) 100 %; WHITE BLOOD COUNT 6.5 10^3/uL (4.0-10.5)
[2018-11-26 09:51] LABS: ALBUMIN 4.2 g/dL (3.5-5.0); ALKALINE PHOSPHATASE 44 U/L (38-126); ANION GAP 6 (5-19); ASPARTATE AMINO TRANSFERASE 24 U/L (17-59); BILIRUBIN,DIRECT 0.2 mg/dL (0.0-0.4); BILIRUBIN,TOTAL 0.8 mg/dL (0.2-1.3); BLOOD UREA NITROGEN 21 mg/dL (7-20); CALCIUM 9.5 mg/dL (8.4-10.2); CARBON DIOXIDE 27 mmol/L (22-30); CHLORIDE 105 mmol/L (98-107); GLUCOSE 95 mg/dL (75-110); POTASSIUM 4.6 mmol/L (3.6-5.0); TOTAL PROTEIN 6.8 g/dL (6.3-8.2)
--- NOTE | 2018-11-26 10:07 | RADIOLOGY REPORT (SQ) ---
EXAM DESCRIPTION: CT HEAD WITHOUT COMPLETED DATE/TIME: 11/26/2018 9:40 am REASON FOR STUDY: fall; hit head; on coumadin COMPARISON: CT brain 09/05/2017, 09/23/2015 TECHNIQUE: Axial images acquired through the brain without intravenous contrast. Images reviewed wi th bone, brain and subdural windows. Additional sagittal and coronal reconstructions were generated. Images stored on PACS. All CT scanners at this facility use dose modulation, iterative reconstruction, and/or weight based d osing when appropriate to reduce radiation dose to as low as reasonably achievable (ALARA). [facility]: Dose Right [facility]: CareDose [facility]: Dose Right [facility]: Teradose 4D [facility]: Novavax AB RADIATION DOSE: CT Rad equipment meets quality standard of care and radiation dose reduction techniq ues were employed. CTDIvol: 53.2 mGy. DLP: 1070 mGy-cm. mGy. LIMITATIONS: None. FINDINGS: VENTRICLES: Normal size and contour. CEREBRUM: No masses. No hemorrhage. No midline shift. No evidence for acute infarction. Normal gra y/white matter differentiation. No areas of low density in the white matter. CEREBELLUM: No masses. No hemorrhage. No alteration of density. No evidence for acute infarction. EXTRAAXIAL SPACES: No fluid collections. No masses. ORBITS AND GLOBE: No intra- or extraconal masses. Normal contour of globe without masses. CALVARIUM: No fracture. PARANASAL SINUSES: No fluid or mucosal thickening. SOFT TISSUES: No mass or hematoma. OTHER: No other significant finding. IMPRESSION: NORMAL BRAIN CT WITHOUT CONTRAST. EVIDENCE OF ACUTE STROKE: NO. COMMENT: Quality ID # 436: Final reports with documentation of one or more dose reduction techniques (e.g., Automated exposure control, adjustment of the mA and/or kV according to patient size, use of iterative reconstruction technique) TECHNICAL DOCUMENTATION: JOB ID: [id number] [employer]- All Rights Reserved Reading location - IP/workstation name: [email or web address]
--- NOTE | 2018-11-26 10:10 | RADIOLOGY REPORT (SQ) ---
EXAM DESCRIPTION: CT CERVICAL SPINE WITHOUT COMPLETED DATE/TIME: 11/26/2018 9:40 am REASON FOR STUDY: fall; hit head; on coumadin COMPARISON: CT brain same date PET-CT 11/22/2018 CT cervical spine 07/31/2017 TECHNIQUE: Axial images acquired through the cervical spine without intravenous contrast. Images re viewed with lung, soft tissue and bone windows. Reconstructed coronal and sagittal MPR images review ed. Images stored on PACS. All CT scanners at this facility use dose modulation, iterative reconstruction, and/or weight based d osing when appropriate to reduce radiation dose to as low as reasonably achievable (ALARA). [facility]: Dose Right [facility]: CareDose [facility]: Dose Right [facility]: Teradose 4D [facility]: [employer] RADIATION DOSE: CT Rad equipment meets quality standard of care and radiation dose reduction techniq ues were employed. CTDIvol: 19.5 mGy. DLP: 408 mGy-cm. mGy. LIMITATIONS: None. FINDINGS: ALIGNMENT: Anatomic. MINERALIZATION: Normal. VERTEBRAL BODIES: No fractures or dislocation. DISCS: Prior fusion at C5-6 and C6-7. No significant central canal narrowing. Mild left foraminal n arrowing at C2-3 from facet hypertrophy. FACETS, LATERAL MASSES, POSTERIOR ELEMENTS: No fractures. No dislocation. No acute findings. HARDWARE: Discectomy and fusion at C5-6 and C6-7 VISUALIZED RIBS: No fractures. LUNG APICES AND SOFT TISSUES: No significant or acute findings. OTHER: No other significant finding. IMPRESSION: NO ACUTE OR SIGNIFICANT FINDINGS IN THE CERVICAL SPINE. TECHNICAL DOCUMENTATION: JOB ID: [id number] Quality ID # [id number]: Final reports with documentation of one or more dose reduction techniques (e.g., Au tomated exposure control, adjustment of the mA and/or kV according to patient size, use of iterative reconstruction technique) 2010 [employer]- All Rights Reserved Reading location - IP/workstation name: [email or web address]
[2018-11-26 11:18] VITALS: BP 139/83
== END 2018-11-26 11:17 | disposition home or self-care (01) ==
LOC: ER 08:28
DX: S09.90XA Unspecified injury of head, initial encounter (principal); W18.2XXA Fall in (into) shower or empty bathtub, initial encounter; Y93.E1 Activity, personal bathing and showering; I10 Essential (primary) hypertension; Z79.01 Long term (current) use of anticoagulants; Z90.49 Acquired absence of other specified parts of digestive tract
CPT/HCPCS: 99284; 36415; 85025; 80053; 70450; 72125; L0120; A9270

== ENCOUNTER 2019-02-16 16:44 | Emergency (ER) | payer MEDICARE, OTHER ==
[2019-02-16] MEDS ORDERED: MORPHINE SULFATE 10 MG/ML INJ IM ONE (17:03)
--- NOTE | 2019-02-16 17:06 | ER Document Report ---
ED Medical Screen (RME) - General Chief Complaint: Neck and Upper Back Pain Stated Complaint: NECK PAIN Time Seen by Provider: 02/16/19 16:49 Primary Care Provider: MERVAT MICHELE MD [Primary Care Provider] - Follow up as needed Notes: Patient is a 58-year-old male who presents emergency department with a chief complaint of left-sided neck pain. Patient states that he does not recall doing anything in particular to cause his neck pain. Patient states he has had 3 different neck surgeries in the past. He has history of having hardware malfunction in the past. His last surgery was a little over a year ago. Patient states that his range of motion is limited. Patient has history of melanoma. Denies any fever, body aches, chills. Exam: Tenderness to cervical spine. I have greeted and performed a rapid initial assessment of this patient. A comprehensive ED assessment and evaluation of the patient, analysis of test results and completion of medical decision making process will be conducted by an additional ED providers. TRAVEL OUTSIDE OF THE [place] IN LAST 30 DAYS: No - Related Data Allergies/Adverse Reactions: ceftriaxone [From Rocephin] Allergy (Verified 02/16/19 16:48) Past Medical History - Past Medical History Cardiac Medical History: Reports: Hx Hypertension Denies: Hx Coronary Artery Disease, Hx Heart Attack Pulmonary Medical History: Reports: Hx Pneumonia - CHILD Denies: Hx Asthma, Hx Bronchitis, Hx COPD Neurological Medical History: Denies: Hx Cerebrovascular Accident, Hx Seizures Renal/ Medical History: Reports: Hx Epididymitis, Hx Kidney Stones. Denies: Hx Peritoneal Dialysis GI Medical History: Reports: Hx Diverticulitis, Hx Gastroesophageal Reflux Disease, Hx Colonoscopy Musculoskeltal Medical History: Reports Hx Arthritis, Reports Hx Musculoskeletal Deformity, Reports Hx Musculoskeletal Trauma Psychiatric Medical History: Reports: Hx Anxiety, Hx Depression Traumatic Medical History: Reports: Hx Fractures, Hx Traumatic Brain Injury Past Surgical History: Reports: Hx Adenoidectomy, Hx Bowel Surgery, Hx Cholecystectomy, Hx Neurologic Surgery - Neck 2, Hx Oral Surgery - Dental surgery, Hx Orthopedic Surgery - shoulder, knee, carpal tunnel, Hx Testicular Surgery - Wire for varicoceles, Hx Tonsillectomy, Other - Removed melanoma tumors from back and lymph nodes, ventral hernia repair an - Immunizations Hx Diphtheria, Pertussis, Tetanus Vaccination: Yes - unknown Doctor's Discharge - Discharge Referrals: MERVAT MICHELE MD [Primary Care Provider] - Follow up as needed
[2019-02-16 17:10] VITALS: BP 150/78
[2019-02-16] MEDS ORDERED: DIAZEPAM 5 MG TABLET PO ONE (17:53)
--- NOTE | 2019-02-16 17:56 | RADIOLOGY REPORT (SQ) ---
EXAM DESCRIPTION: CT CERVICAL SPINE WITHOUT COMPLETED DATE/TIME: 02/16/2019 5:33 pm REASON FOR STUDY: neck pain; eval hardware COMPARISON: None. TECHNIQUE: Axial images acquired through the cervical spine without intravenous contrast. Images re viewed with lung, soft tissue and bone windows. Reconstructed coronal and sagittal MPR images review ed. Images stored on PACS. All CT scanners at this facility use dose modulation, iterative reconstruction, and/or weight based d osing when appropriate to reduce radiation dose to as low as reasonably achievable (ALARA). [facility]: Dose Right [facility]: CareDose [facility]: Dose Right [facility]: Teradose 4D [facility]: [employer] RADIATION DOSE: CT Rad equipment meets quality standard of care and radiation dose reduction techniq ues were employed. CTDIvol: 19.2 mGy. DLP: 435 mGy-cm. mGy. LIMITATIONS: None. FINDINGS: ALIGNMENT: Anatomic. MINERALIZATION: Normal. VERTEBRAL BODIES: No fractures or dislocation. DISCS: No significant disc disease. FACETS, LATERAL MASSES, POSTERIOR ELEMENTS: No fractures. No dislocation. No acute findings. HARDWARE: Anterior plate at C5- C7 with screws into the vertebral bodies and with disc implants. VISUALIZED RIBS: No fractures. LUNG APICES AND SOFT TISSUES: No significant or acute findings. OTHER: No other significant finding. IMPRESSION: ACDF C5-C7. No acute findings. TECHNICAL DOCUMENTATION: JOB ID: [id number] Quality ID # [id number]: Final reports with documentation of one or more dose reduction techniques (e.g., Au tomated exposure control, adjustment of the mA and/or kV according to patient size, use of iterative reconstruction technique) 2010 [employer]- All Rights Reserved Reading location - IP/workstation name: [email or web address]
--- NOTE | 2019-02-16 17:58 | ER Document Report ---
ED Neck/Back Problem - General Chief Complaint: Neck and Upper Back Pain Stated Complaint: NECK PAIN Time Seen by Provider: 02/16/19 16:49 Primary Care Provider: MERVAT MICHELE MD [Primary Care Provider] - Follow up as needed Notes: 58 year old male arrives with complaints of posterior left side neck pain. Sharp pain without radiation located on left side of neck. + previous surgeries on neck. Helping move some things about a week ago and does not know if he aggravated neck. No radicular pain. No fever. Received morphine before I saw him which seemed to help a bit. TRAVEL OUTSIDE OF THE [place] IN LAST 30 DAYS: No - HPI Patient complains to provider of: Pain Onset: Last week Where: Home Onset: Gradual Timing: Constant Severity: Moderate Pain Level: 3 Recent injury: Possibly Exacerbated by: Movement of neck Relieved by: Nothing - Related Data Allergies/Adverse Reactions: ceftriaxone [From Rocephin] Allergy (Verified 02/16/19 16:48) Past Medical History - Social History Smoking Status: Former Smoker Family History: Reviewed & Not Pertinent, Arthritis, Hypertension Patient has suicidal ideation: No Patient has homicidal ideation: No - Past Medical History Cardiac Medical History: Reports: Hx Hypertension Denies: Hx Coronary Artery Disease, Hx Heart Attack Pulmonary Medical History: Reports: Hx Pneumonia - CHILD Denies: Hx Asthma, Hx Bronchitis, Hx COPD Neurological Medical History: Denies: Hx Cerebrovascular Accident, Hx Seizures Renal/ Medical History: Reports: Hx Epididymitis, Hx Kidney Stones. Denies: Hx Peritoneal Dialysis GI Medical History: Reports: Hx Diverticulitis, Hx Gastroesophageal Reflux Disease, Hx Colonoscopy Musculoskeletal Medical History: Reports Hx Arthritis, Reports Hx Musculoskeletal Deformity, Reports Hx Musculoskeletal Trauma Psychiatric Medical History: Reports: Hx Anxiety, Hx Depression Traumatic Medical History: Reports: Hx Fractures, Hx Traumatic Brain Injury Past Surgical History: Reports: Hx Adenoidectomy, Hx Bowel Surgery, Hx Cholecystectomy, Hx Neurologic Surgery - Neck 2, Hx Oral Surgery - Dental surgery, Hx Orthopedic Surgery - shoulder, knee, carpal tunnel, Hx Testicular Surgery - Wire for varicoceles, Hx Tonsillectomy, Other - Removed melanoma tumors from back and lymph nodes, ventral hernia repair an - Immunizations Hx Diphtheria, Pertussis, Tetanus Vaccination: Yes - unknown Review of Systems - Review of Systems Constitutional: No symptoms reported EENT: No symptoms reported Cardiovascular: No symptoms reported Respiratory: No symptoms reported Gastrointestinal: No symptoms reported Genitourinary: No symptoms reported Male Genitourinary: No symptoms reported Musculoskeletal: See HPI, Back pain Skin: No symptoms reported Hematologic/Lymphatic: No symptoms reported Neurological/Psychological: No symptoms reported Physical Exam - Vital signs Vitals: Temp Pulse Resp BP Pulse Ox 97.6 F 73 18 150/78 H 100 02/16/19 16:47 02/16/19 16:47 02/16/19 16:47 02/16/19 16:47 02/16/19 16:47 Interpretation: Normal - General General appearance: Appears well, Alert - HEENT Head: Normocephalic, Atraumatic Eyes: Normal Pupils: PERRL Neck: Other - ttp left posteriorly. - Respiratory Respiratory status: No respiratory distress Chest status: Nontender Breath sounds: Normal Chest palpation: Normal - Cardiovascular Rhythm: Regular Heart sounds: Normal auscultation Murmur: No - Abdominal Inspection: Normal Distension: No distension Bowel sounds: Normal Tenderness: Nontender Organomegaly: No organomegaly - Back Back: Normal, Nontender - Extremities General upper extremity: Normal inspection, Nontender, Normal color, Normal ROM, Normal temperature General lower extremity: Normal inspection, Nontender, Normal color, Normal ROM, Normal temperature, Normal weight bearing. No: Delores's sign - Neurological Neuro grossly intact: Yes Cognition: Normal Orientation: AAOx4 [place] Coma Scale Eye Opening: Spontaneous [place] Coma Scale Verbal: Oriented [place] Coma Scale Motor: Obeys Commands Hema Coma Scale Total: 15 Speech: Normal Motor strength normal: LUE, RUE, LLE, RLE Sensory: Normal - Psychological Associated symptoms: Normal affect, Normal mood - Skin Skin Temperature: Warm Skin Moisture: Dry Skin Color: Normal Course - Re-evaluation Re-evalutation: 02/16/19 17:56 MDM 58 year old with musculoskeltal neck pain. Reproducible with direct palpation. No fever no chest pain or sob. - Vital Signs Vital signs: Temp Pulse Resp BP Pulse Ox 97.6 F 73 18 150/78 H 100 02/16/19 16:47 02/16/19 16:47 02/16/19 16:47 02/16/19 16:47 02/16/19 16:47 - Laboratory Result Diagrams: 02/16/19 17:33 02/16/19 17:33 Laboratory results interpreted by me: 02/16/19 17:33 WBC 14.0 H RDW 14.1 H Absolute Neuts (auto) 11.2 H Seg Neutrophils % 80.0 H Discharge - Discharge Clinical Impression: Neck pain on left side Condition: Good Disposition: HOME, SELF-CARE Prescriptions: Diazepam [Valium 5 mg Tablet] 5 mg PO TID #15 tablet Referrals: MERVAT MICHELE MD [Primary Care Provider] - Follow up as needed
[2019-02-16 18:05] LABS: ABSOLUTE BASOPHILS # (AUTO) 0.1 10^3/uL (0.0-0.2); ABSOLUTE EOSINOPHILS # (AUTO) 0.1 10^3/uL (0.0-0.6); ABSOLUTE LYMPHOCYTES (AUTO) 1.9 10^3/uL (0.5-4.7); ABSOLUTE MONOCYTES (AUTO) 0.8 10^3/uL (0.1-1.4); ABSOLUTE NEUT (AUTO) 11.2 10^3/uL (1.7-8.2); BASOPHILS % (AUTO) 0.5 % (0-2); EOSINOPHILS % (AUTO) 0.6 % (0-6); HEMATOCRIT 46.8 % (37.9-51.0); HEMOGLOBIN 15.8 g/dL (13.5-17.0); LYMPHOCYTES % (AUTO) 13.3 % (13-45); MEAN CORPUSCULAR HEMOGLOBIN 28.7 pg (27.0-33.4); MEAN CORPUSCULAR HGB CONC 33.9 g/dL (32.0-36.0); MEAN CORPUSCULAR VOLUME 85 fl (80-97); MONOCYTES % (AUTO) 5.6 % (3-13); PLATELET COUNT 215 10^3/uL (150-450); RED BLOOD COUNT 5.53 10^6/uL (4.35-5.55); RED CELL DISTRIBUTION WIDTH 14.1 % (11.5-14.0); TOTAL CELLS COUNTED % (AUTO) 100 %
[2019-02-16 18:29] LABS: ALBUMIN 4.4 g/dL (3.5-5.0); ALKALINE PHOSPHATASE 48 U/L (38-126); ANION GAP 11 (5-19); ASPARTATE AMINO TRANSFERASE 26 U/L (17-59); BILIRUBIN,DIRECT 0.1 mg/dL (0.0-0.4); BILIRUBIN,TOTAL 0.7 mg/dL (0.2-1.3); BLOOD UREA NITROGEN 28 mg/dL (7-20); CALCIUM 9.5 mg/dL (8.4-10.2); CARBON DIOXIDE 26 mmol/L (22-30); CHLORIDE 102 mmol/L (98-107); GLUCOSE 100 mg/dL (75-110); POTASSIUM 4.5 mmol/L (3.6-5.0); TOTAL PROTEIN 7.1 g/dL (6.3-8.2)
== END 2019-02-16 18:45 | disposition home or self-care (01) ==
LOC: ER 16:44
DX: M54.2 Cervicalgia (principal); M54.9 Dorsalgia, unspecified; I10 Essential (primary) hypertension; Z98.1 Arthrodesis status; Z87.891 Personal history of nicotine dependence; Z88.1 Allergy status to other antibiotic agents
CPT/HCPCS: 36415; 85025; 80053; 72125; A9270; J2270; 96372; 99284

== ENCOUNTER 2019-04-02 06:30 | Emergency (ER) | payer MEDICARE, OTHER ==
[2019-04-02] MEDS ORDERED: ACETAMINOPHEN 325 MG TABLET PO ONE (06:57)
--- NOTE | 2019-04-02 08:47 | RADIOLOGY REPORT (SQ) ---
EXAM DESCRIPTION: SHOULDER LEFT 2 OR MORE VIEWS COMPLETED DATE/TIME: 04/02/2019 7:15 am REASON FOR STUDY: PAIN COMPARISON: 02/06/2018 NUMBER OF VIEWS: Three views. TECHNIQUE: Internal rotation, external rotation, and Y view images acquired of the left shoulder. LIMITATIONS: None. FINDINGS: Chronic defect in the distal clavicle. No evidence of acute fracture or dislocation. Vis ualize lungs are clear. Left-sided PICC line. IMPRESSION: No acute findings. TECHNICAL DOCUMENTATION: JOB ID: [id number] [employer]- All Rights Reserved Reading location - IP/workstation name: [email or web address]
[2019-04-02] MEDS ORDERED: IBUPROFEN 800 MG TABLET PO ONE (09:30)
--- NOTE | 2019-04-02 09:34 | ER Document Report ---
HPI - HPI Time Seen by Provider: 04/02/19 08:39 Pain Level: 4 Context: Patient is a 58-year-old male who presents emergency department with a chief complaint of left shoulder pain. Patient reports that last night he was moving boxes when he felt a pop in his left shoulder. Patient reports he has had multiple surgeries on his left shoulder to include a rotator cuff surgery. Patient reports this was years ago. Patient reports pain with movement. Patient denies numbness or tingling to his left arm. Patient reports he is significantly weaker on his left arm than his right but reports that this is his normal due to a neck surgery in the past. Patient reports he did take Tylenol for his discomfort. Patient denies swelling. - REPRODUCTIVE Reproductive: DENIES: : Past Medical History - General Information source: Patient - Social History Smoking Status: Never Smoker Lives with: Spouse/Significant other Family History: Reviewed & Not Pertinent, Arthritis, Hypertension Patient has suicidal ideation: No Patient has homicidal ideation: No - Past Medical History Cardiac Medical History: Reports: Hx Hypertension Denies: Hx Coronary Artery Disease, Hx Heart Attack Pulmonary Medical History: Reports: Hx Pneumonia - CHILD Denies: Hx Asthma, Hx Bronchitis, Hx COPD EENT Medical History: Reports: None Neurological Medical History: Reports: None. Denies: Hx Cerebrovascular Accident, Hx Seizures Endocrine Medical History: Reports: None Renal/ Medical History: Reports: Hx Epididymitis, Hx Kidney Stones. Denies: Hx Peritoneal Dialysis Malignancy Medical History: Reports None GI Medical History: Reports: Hx Diverticulitis, Hx Gastroesophageal Reflux Disease, Hx Colonoscopy Musculoskeletal Medical History: Reports Hx Arthritis, Reports Hx Musculoskeletal Deformity, Reports Hx Musculoskeletal Trauma Skin Medical History: Reports None Psychiatric Medical History: Reports: Hx Anxiety, Hx Depression Traumatic Medical History: Reports: Hx Fractures, Hx Traumatic Brain Injury Infectious Medical History: Reports: None Past Surgical History: Reports: Hx Adenoidectomy, Hx Bowel Surgery, Hx Cholecystectomy, Hx Neurologic Surgery - Neck 2, Hx Oral Surgery - Dental surgery, Hx Orthopedic Surgery - shoulder, knee, carpal tunnel, Hx Testicular Surgery - Wire for varicoceles, Hx Tonsillectomy, Other - Removed melanoma tumors from back and lymph nodes, ventral hernia repair an - Immunizations Hx Diphtheria, Pertussis, Tetanus Vaccination: Yes - unknown Vertical Provider Document - CONSTITUTIONAL Agree With Documented VS: Yes Exam Limitations: No Limitations General Appearance: No Apparent Distress - INFECTION CONTROL TRAVEL OUTSIDE OF THE [place] IN LAST 30 DAYS: No - HEENT HEENT: Atraumatic, Normal ENT Exam, Normocephalic, PERRLA - NECK Neck: Normal Inspection - RESPIRATORY Respiratory: Breath Sounds Normal, No Respiratory Distress - CARDIOVASCULAR Cardiovascular: Regular Rate, Regular Rhythm - GI/ABDOMEN Gastrointestinal: Abdomen Soft, Abdomen Non-Tender, Normal Bowel Sounds - MUSCULOSKELETAL/EXTREMETIES Notes: Patient has tenderness to the anterior aspect of the left shoulder. There is no edema, erythema. There is a old scar noted to the anterior aspect of the left shoulder. Patient is able to abduct the left shoulder without distress. Patient does have discomfort to the anterior shoulder when attempting to abduct and when lifting his arm above his shoulder. 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 There is no obvious deformity. - NEURO Level of Consciousness: Awake, Alert, Appropriate - DERM Integumentary: Warm, Dry, No Rash Course - Re-evaluation Re-evalutation: 04/02/19 09:[address] the patient in a sling, give ibuprofen and have the patient follow-up with orthopedics. He reports that his goes and sees Dr. Clifford. He states that he will follow-up with him if he does not feel better within the next week. Patient given sling for comfort and educated to remove this multiple times per day. and patient verbalized understanding of discharge instructions. - Vital Signs Vital signs: Temp Pulse Resp BP Pulse Ox 97.1 F 98 16 142/83 H 98 04/02/19 06:55 04/02/19 06:55 04/02/19 06:55 04/02/19 06:55 04/02/19 06:55 - Diagnostic Test Radiology reviewed: Reports reviewed Radiology results interpreted by me: 04/02/19 09:39 Shoulder X-Ray 04/02/19 00:00 IMPRESSION: No acute findings. Discharge - Discharge Clinical Impression: Left shoulder pain Qualifiers: Chronicity: acute Qualified Code(s): M25.512 - Pain in left shoulder Condition: Stable Disposition: HOME, SELF-CARE Additional Instructions: *Today you are seen in the emergency department after a shoulder injury. Your x-ray was negative for any acute abnormality such as a fracture dislocation. We have replaced you in a sling. Please continue to use ice to the area as well as anti-inflammatories. Please follow-up with orthopedics if you are not feeling better after 1 week. Please use the sling for comfort. Please remove your arm from the sling multiple times per day to help desk support specialist in range of motion of the shoulder. Please return to the emergency department if you have severe pain, numbness or loss of function. Shoulder Injury You have injured your shoulder. This usually results from stretching or tearing of the tendons during trauma. Time and protection are required in order to heal properly. Many injuries are quite disabling, and should be taken seriously. Initial treatment includes cold packs and a sling to rest the shoulder. The physician has assessed the seriousness of your injury, and has outlined a treatment plan. Understand that this treatment may change, depending on how you progress. If a re-examination was recommended, it is important that you follow up as instructed. Some shoulder injuries (such as partial tear of the rotator cuff) are only suspected after you've failed to improve. Call us if there's severe pain, numbness, or loss of function. Prescriptions: Ibuprofen [Motrin 800 mg Tablet] 800 mg PO Q8H PRN #30 tab PRN Reason: Referrals: NATALY GUERRA MD [Primary Care Provider] - Follow up as needed
[2019-04-02 09:40] VITALS: BP 139/85
== END 2019-04-02 09:39 | disposition home or self-care (01) ==
LOC: ER 06:30
DX: M25.512 Pain in left shoulder (principal); M62.81 Muscle weakness (generalized); X50.0XXA Overexertion from strenuous movement or load, initial encounter; Z98.890 Other specified postprocedural states; Z79.899 Other long term (current) drug therapy; I10 Essential (primary) hypertension
CPT/HCPCS: 99283; 73030; A9270 ×2

== ENCOUNTER 2019-05-13 13:32 | Emergency (ER) | payer MEDICARE, OTHER ==
--- NOTE | 2019-05-13 13:51 | ER Document Report ---
ED Medical Screen (RME) - General Chief Complaint: Leg Pain Stated Complaint: LEFT LEG PAIN Time Seen by Provider: 05/13/19 13:45 Primary Care Provider: NATALY GUERRA MD [Primary Care Provider] - Follow up as needed Notes: Patient is a 58-year-old male who presents emergency department with a chief complaint of left calf pain. Patient reports he does not have a history of blood clots. Denies chest pain or shortness of breath. Patient reports yesterday developing left calf pain that feels like a muscle tightness. Patient denies injury, fall, strenuous activity. Patient reports he is on warfarin 1 mg daily that he reports he takes because of his Port-A-Cath. Patient is not currently going any chemotherapy or radiation and has been cancer free from melanoma for 4 years. TRAVEL OUTSIDE OF THE [place] IN LAST 30 DAYS: No - Related Data Allergies/Adverse Reactions: ceftriaxone [From Rocephin] Allergy (Verified 05/13/19 13:43) Past Medical History - Social History Frequency of alcohol use: Rare Drug Abuse: None - Past Medical History Cardiac Medical History: Reports: Hx Hypertension Denies: Hx Coronary Artery Disease, Hx Heart Attack Pulmonary Medical History: Reports: Hx Pneumonia - CHILD Denies: Hx Asthma, Hx Bronchitis, Hx COPD Neurological Medical History: Denies: Hx Cerebrovascular Accident, Hx Seizures Renal/ Medical History: Reports: Hx Epididymitis, Hx Kidney Stones. Denies: Hx Peritoneal Dialysis GI Medical History: Reports: Hx Diverticulitis, Hx Gastroesophageal Reflux Dise ase, Hx Colonoscopy Musculoskeltal Medical History: Reports Hx Arthritis, Reports Hx Musculoskeletal Deformity, Reports Hx Musculoskeletal Trauma Psychiatric Medical History: Reports: Hx Anxiety, Hx Depression Traumatic Medical History: Reports: Hx Fractures, Hx Traumatic Brain Injury Past Surgical History: Reports: Hx Adenoidectomy, Hx Bowel Surgery, Hx Cholecystectomy, Hx Neurologic Surgery - Neck 2, Hx Oral Surgery - Dental surgery, Hx Orthopedic Surgery - shoulder, knee, carpal tunnel, Hx Testicular Surgery - Wire for varicoceles, Hx Tonsillectomy, Other - Removed melanoma tumors from back and lymph nodes, ventral hernia repair an - Immunizations Hx Diphtheria, Pertussis, Tetanus Vaccination: Yes - unknown Physical Exam - Vital signs Vitals: Temp Pulse Resp BP Pulse Ox 98.6 F 57 L 16 153/132 H 96 05/13/19 13:40 05/13/19 13:40 05/13/19 13:40 05/13/19 13:40 05/13/19 13:40 Course - Re-evaluation Re-evalutation: 05/13/19 13:50 Patient has tenderness to the left posterior calf. Will obtain an ultrasound to rule out DVT. 05/13/19 13:51 Patient was noted to be hypertensive in triage. Patient asymptomatic. Patient denies dizziness, headache, chest pain or shortness of breath. I have greeted and performed a rapid initial assessment of this patient. A comprehensive ED assessment and evaluation of the patient, analysis of test results and completion of the medical decision making process will be conducted by additional ED providers. - Vital Signs Vital signs: Temp Pulse Resp BP Pulse Ox 98.6 F 57 L 16 153/132 H 96 05/13/19 13:40 05/13/19 13:40 05/13/19 13:40 05/13/19 13:40 05/13/19 13:40 Doctor's Discharge - Discharge Referrals: NATALY GUERAR MD [Primary Care Provider] - Follow up as needed
--- NOTE | 2019-05-13 16:11 | RADIOLOGY REPORT (SQ) ---
EXAM DESCRIPTION: VENOUS UNILATERAL LOWER COMPLETED DATE/TIME: 05/13/2019 3:56 pm REASON FOR STUDY: left calf pain COMPARISON: None. TECHNIQUE: Dynamic and static troy scale and color images acquired of the left leg venous system. Se lected spectral images acquired with additional compression and augmentation maneuvers. The contralat eral common femoral vein and saphenofemoral junction were also imaged. Images stored on PACS. LIMITATIONS: None. FINDINGS: COMMON FEMORAL: Normal phasicity, compression and augmentation. No visualized echogenic ma terial on troy scale. No defects on color images. FEMORAL: Normal compression and augmentation. No visualized echogenic material on troy scale. No defe cts on color images. POPLITEAL: Normal compression, augmentation. No visualized echogenic material on troy scale. No defec ts on color images. CALF VESSELS: Normal compression, augmentation. No visualized echogenic material on troy scale. No de fects on color images. GSV and SSV: Normal compression, augmentation. No visualized echogenic material on troy scale. No def ects on color images. ANY DEEP VENOUS INSUFFICIENCY: No. ANY EVIDENCE OF POPLITEAL CYST: No. OTHER: No other significant finding. CONTRALATERAL COMMON FEMORAL VEIN AND SAPHENOFEMORAL JUNCTION: Normal phasicity, compression and augmentation. No visualized echogenic material on troy scale. No de fects on color images. IMPRESSION: NO EVIDENCE DVT OR SVT IN THE LEFT LEG. TECHNICAL DOCUMENTATION: JOB ID: [id number] 2010 [employer]- All Rights Reserved Reading location - IP/workstation name: [email or web address]
--- NOTE | 2019-05-13 16:17 | ER Document Report ---
ED General - General Chief Complaint: Leg Pain Stated Complaint: LEFT LEG PAIN Time Seen by Provider: 05/13/19 13:45 Primary Care Provider: NATALY GUERRA MD [Primary Care Provider] - Follow up as needed Notes: Patient is a 58-year-old white male with a past medical history of metastatic melanoma who is 4 years in remission who presents to the emergency department with a chief complaint of pain to the posterior left proximal calf laterally. States the pain came out of nowhere recently. Denies any injury to the extremity. Denies any new strenuous activities. Denies any redness or swelling. Admits to a point area of tenderness. Denies any history of DVT. He is on Coumadin 1 mg daily for the port in relation to his treatment for melanoma. He denies any recent travel, recent mobilization, history of DVT or PE, smoking, chest pain, shortness of breath, hormone replacement therapy or recent surgery. TRAVEL OUTSIDE OF THE [place] IN LAST 30 DAYS: No - Related Data Allergies/Adverse Reactions: ceftriaxone [From Rocephin] Allergy (Verified 05/13/19 13:43) Past Medical History - Social History Smoking Status: Never Smoker Frequency of alcohol use: Rare Drug Abuse: None Family History: Reviewed & Not Pertinent, Arthritis, Hypertension Patient has suicidal ideation: No Patient has homicidal ideation: No - Past Medical History Cardiac Medical History: Reports: Hx Hypertension Denies: Hx Coronary Artery Disease, Hx Heart Attack Pulmonary Medical History: Reports: Hx Pneumonia - CHILD Denies: Hx Asthma, Hx Bronchitis, Hx COPD Neurological Medical History: Denies: Hx Cerebrovascular Accident, Hx Seizures Renal/ Medical History: Reports: Hx Epididymitis, Hx Kidney Stones. Denies: Hx Peritoneal Dialysis GI Medical History: Reports: Hx Diverticulitis, Hx Gastroesophageal Reflux Disease, Hx Colonoscopy Musculoskeletal Medical History: Reports Hx Arthritis, Reports Hx Musculoskeletal Deformity, Reports Hx Musculoskeletal Trauma Psychiatric Medical History: Reports: Hx Anxiety, Hx Depression Traumatic Medical History: Reports: Hx Fractures, Hx Traumatic Brain Injury Past Surgical History: Reports: Hx Adenoidectomy, Hx Bowel Surgery, Hx Cholecystectomy, Hx Neurologic Surgery - Neck 2, Hx Oral Surgery - Dental surgery, Hx Orthopedic Surgery - shoulder, knee, carpal tunnel, Hx Testicular Surgery - Wire for varicoceles, Hx Tonsillectomy, Other - Removed melanoma tumors from back and lymph nodes, ventral hernia repair an - Immunizations Hx Diphtheria, Pertussis, Tetanus Vaccination: Yes - unknown Review of Systems - Review of Systems Musculoskeletal: Other - Leg pain -: Yes All other systems reviewed and negative Physical Exam - Vital signs Vitals: Temp Pulse Resp BP Pulse Ox 98.6 F 57 L 16 153/132 H 96 05/13/19 13:40 05/13/19 13:40 05/13/19 13:40 05/13/19 13:40 05/13/19 13:40 - General General appearance: Appears well, Alert In distress: None - Respiratory Respiratory status: No respiratory distress Chest status: Nontender Breath sounds: Normal Chest palpation: Normal - Cardiovascular Rhythm: Regular Heart sounds: Normal auscultation - Extremities General lower extremity: Other - Focal area of tenderness to the left lateral proximal calf posteriorly just distal to the popliteal space. There is no increased warmth, redness or streaking. No swelling. Neurovascular intact distally. Full passive range of motion of the left lower extremity. No rashes or lesions. - Neurological Neuro grossly intact: Yes Cognition: Normal Orientation: AAOx4 Hema Coma Scale Eye Opening: Spontaneous Hema Coma Scale Verbal: Oriented Hema Coma Scale Motor: Obeys Commands [place] Coma Scale Total: 15 Speech: Normal Motor strength normal: LUE, RUE, LLE, RLE Sensory: Normal - Psychological Associated symptoms: Normal affect, Normal mood - Skin Skin Temperature: Warm Skin Moisture: Dry Skin Color: Normal Course - Re-evaluation Re-evalutation: 05/13/19 16:54 No evidence of DVT per radiologist. Patient's blood pressure repeat was 131/94 per nurse. He is stable and appropriate for discharge and outpatient follow-up. I counseled him and his at length regarding the importance of outpatient follow-up to ensure resolution and advised that they return here or any ER immediately with any new, persistent or worsening symptoms. They verbalized understood and agreed. - Vital Signs Vital signs: Temp Pulse Resp BP Pulse Ox 98.2 F 64 18 131/94 H 97 05/13/19 16:53 05/13/19 16:53 05/13/19 16:53 05/13/19 16:53 05/13/19 16:53 Discharge - Discharge Clinical Impression: Leg pain Qualifiers: Laterality: unspecified laterality Qualified Code(s): M79.606 - Pain in leg, unspecified Condition: Stable Disposition: HOME, SELF-CARE Instructions: Leg Pain Nonspecific ([facility]) Additional Instructions: Follow-up with your regular doctor in 2 to 3 days for reevaluation. Return here or any ER immediately with any new, persistent or worsening symptoms. Referrals: NATALY GUERRA MD [Primary Care Provider] - Follow up as needed
[2019-05-13 16:54] VITALS: BP 131/94
== END 2019-05-13 17:05 | disposition home or self-care (01) ==
LOC: ER 13:32
DX: M79.662 Pain in left lower leg (principal); I10 Essential (primary) hypertension; Z85.820 Personal history of malignant melanoma of skin; Z79.01 Long term (current) use of anticoagulants; Z88.1 Allergy status to other antibiotic agents
CPT/HCPCS: 93971; 99283

== ENCOUNTER → 2019-05-18 | Outpatient (CLI) | payer MEDICARE, OTHER ==
--- NOTE | 2019-05-18 17:14 | RADIOLOGY REPORT (SQ) ---
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 TECHNIQUE: Blood glucose level was verified. Above dose of FDG was injected intravenously. 2-D seg mented attenuation correction images were obtained through the entire body. Noncontrast CT images we re obtained for attenuation correction and fusion with emission images. CT images were performed wit hout oral or intravenous contrast and are not sensitive for parenchymal lesions. A series of overlap ping emission PET images were obtained. Images reviewed and manipulated at independent work station by the radiologist. Images stored on PACS. LIMITATIONS: None. FINDINGS: HEAD AND NECK: No areas of abnormal metabolic activity in the soft tissues of the head and neck. CHEST: No areas of abnormal metabolic activity in the chest. ABDOMEN AND PELVIS: No areas of abnormal metabolic activity in the abdomen or pelvis. Expected physi ologic activity is present in the genitourinary system and bowel. LOWER EXTREMITIES: No areas of abnormal metabolic activity in the soft tissues of the lower extremiti es. BONES: No abnormal metabolic activity in the visualized skeleton. ADDITIONAL CT FINDINGS: Left-sided permanent central line tip superior vena cava. Post cholecystecto my. Retroperitoneal coils from varicocele ablation. Cervical fusion. Rectosigmoid anastomotic stap les. OTHER: No other significant findings. IMPRESSION: No PET-CT evidence of recurrent or metastatic melanoma TECHNICAL DOCUMENTATION: JOB ID: [id number] [employer]- All Rights Reserved Reading location - IP/workstation name: [email or web address]
== END ==
LOC: RAD 08:33
PROVIDERS: ATTEND Internal Medicine
DX: C43.59 Malignant melanoma of other part of trunk (principal)
CPT/HCPCS: 78816; A9552

== ENCOUNTER 2019-06-07 20:32 | Emergency (ER) | payer MEDICARE, OTHER ==
[2019-06-07 20:54] VITALS: BP 137/72
== END 2019-06-08 00:15 | disposition left against medical advice (07) ==
LOC: ER 20:32
DX: Z53.21 Procedure and treatment not carried out due to patient leaving prior to being seen by health care provider (principal)

== ENCOUNTER 2019-06-16 08:11 | Emergency (ER) | payer MEDICARE, OTHER ==
[2019-06-16 08:19] VITALS: BP 173/79
--- NOTE | 2019-06-16 09:08 | ER Document Report ---
ED Hip Pain/Injury - General Chief Complaint: Hip Pain Stated Complaint: HIP PAIN Time Seen by Provider: 06/16/19 09:04 Primary Care Provider: ANA SANTOS MD [ASSOCIATE] - Follow up as needed MERVAT MICHELE MD [ACTIVE STAFF] - Follow up in 3-5 days Mode of Arrival: Ambulatory Information source: Patient Notes: 59-year-old male presented to ED for complaint of left buttocks pain. He states that is been there for about 3 days. He states he gets worse when he lays for long time sits for long time or walks for long time. He states it does not radiate anywhere is just in his buttocks. He states he has not had any injuries and does not know why he has this pain. He is alert oriented respirations regular nonlabored speaking in full sentences. He is able to walk with a even steady gait. TRAVEL OUTSIDE OF THE [place] IN LAST 30 DAYS: No - HPI Patient complains to provider of: Pain, Hip Occurred: Other - Days Onset/Duration: Gradual Quality of pain: Achy, Sharp Severity: Moderate Pain Level: 4 Symptoms prior to fall: None Symptoms since fall: None Skin Color: Normal Rotation of extremity: None Pain with palpation of the pelvis: Yes - Related Data Allergies/Adverse Reactions: ceftriaxone [From Rocephin] Allergy (Verified 06/16/19 08:42) Past Medical History - General Information source: Patient - Social History Smoking Status: Former Smoker Chew tobacco use (# tins/day): No Frequency of alcohol use: Rare Drug Abuse: None Lives with: Family Family History: Reviewed & Not Pertinent, Arthritis, Hypertension Patient has suicidal ideation: No Patient has homicidal ideation: No - Past Medical History Cardiac Medical History: Reports: Hx Hypertension Pulmonary Medical History: Reports: Hx Pneumonia - CHILD EENT Medical History: Reports: None Neurological Medical History: Reports: None Endocrine Medical History: Reports: None Renal/ Medical History: Reports: Hx Epididymitis, Hx Kidney Stones Malignancy Medical History: Reports None GI Medical History: Reports: Hx Diverticulitis, Hx Gastroesophageal Reflux Disease, Hx Colonoscopy Musculoskeletal Medical History: Reports Hx Arthritis, Reports Hx Musculoskeletal Deformity, Reports Hx Musculoskeletal Trauma Skin Medical History: Reports None Psychiatric Medical History: Reports: Hx Anxiety, Hx Depression Traumatic Medical History: Reports: Hx Fractures, Hx Traumatic Brain Injury Infectious Medical History: Reports: None Past Surgical History: Reports: Hx Adenoidectomy, Hx Bowel Surgery, Hx Cholecystectomy, Hx Neurologic Surgery - Neck 2, Hx Oral Surgery - Dental surgery, Hx Orthopedic Surgery - shoulder, knee, carpal tunnel, Hx Testicular Surgery - Wire for varicoceles, Hx Tonsillectomy, Other - Removed melanoma tumors from back and lymph nodes, ventral hernia repair an - Immunizations Hx Diphtheria, Pertussis, Tetanus Vaccination: Yes - unknown Review of Systems - Review of Systems Constitutional: No symptoms reported EENT: No symptoms reported Cardiovascular: No symptoms reported Respiratory: No symptoms reported Gastrointestinal: No symptoms reported Genitourinary: No symptoms reported Male Genitourinary: No symptoms reported Musculoskeletal: Back pain - Left buttocks pain Skin: No symptoms reported Hematologic/Lymphatic: No symptoms reported Neurological/Psychological: No symptoms reported -: Yes All other systems reviewed and negative Physical Exam - Vital signs Vitals: Temp Pulse Resp BP Pulse Ox 98.1 F 63 18 173/79 H 97 06/16/19 08:18 06/16/19 08:18 06/16/19 08:18 06/16/19 08:18 06/16/19 08:18 Interpretation: Normal - General General appearance: Appears well, Alert - HEENT Head: Normocephalic, Atraumatic Eyes: Normal Pupils: PERRL - Respiratory Respiratory status: No respiratory distress Chest status: Nontender Breath sounds: Normal Chest palpation: Normal - Cardiovascular Rhythm: Regular Heart sounds: Normal auscultation Murmur: No - Abdominal Inspection: Normal Distension: No distension Bowel sounds: Normal Tenderness: Nontender Organomegaly: No organomegaly - Back Back: Normal, Tender - Buttocks - Extremities General upper extremity: Normal inspection, Nontender, Normal color, Normal ROM, Normal temperature General lower extremity: Normal inspection, Nontender, Normal color, Normal ROM, Normal temperature, Normal weight bearing. No: Delores's sign - Neurological Neuro grossly intact: Yes Cognition: Normal Orientation: AAOx4 [place] Coma Scale Eye Opening: Spontaneous [place] Coma Scale Verbal: Oriented Hema Coma Scale Motor: Obeys Commands Hema Coma Scale Total: 15 Speech: Normal Motor strength normal: LUE, RUE, LLE, RLE Sensory: Normal - Psychological Associated symptoms: Normal affect, Normal mood - Skin Skin Temperature: Warm Skin Moisture: Dry Skin Color: Normal Course - Re-evaluation Re-evalutation: 06/16/19 11:49 X-ray was discussed with patient written report of x-rays given the patient patient was instructed to please follow-up with his primary care and with a back specialist. Patient verbalized understanding and agreement with treatment plan and patient was discharged home. - Vital Signs Vital signs: Temp Pulse Resp BP Pulse Ox 98.1 F 63 18 173/79 H 97 06/16/19 08:18 06/16/19 08:18 06/16/19 08:18 06/16/19 08:18 06/16/19 08:18 - Diagnostic Test Radiology reviewed: Image reviewed, Reports reviewed Discharge - Discharge Clinical Impression: Low back pain with right-sided sciatica Qualifiers: Chronicity: acute Back pain laterality: right Qualified Code(s): M54.41 - Lumbago with sciatica, right side Condition: Stable Disposition: HOME, SELF-CARE Additional Instructions: LOW BACK PAIN: Three out of every four people will have an episode of disabling back pain during their lifetime. Most commonly the pain is due to straining of the muscles and ligaments in the low back. Usual treatment includes: (1) Rest on a firm surface. Avoid lying on your stomach. (2) Ice pack the painful area. After a few days, gentle heat may be used intermittently to relax the area, or ice packs can be continued. (3) Medication may be needed -- muscle relaxers and antiinflammatory medicines are commonly used. (4) As the back improves, exercises are prescribed to strengthen the back and abdominal muscles. Your doctor will advise you on the proper care for your back at each stage in your recovery. You may be better in a few days -- or healing may take several weeks. If new symptoms of a "herniated disc" (radiation of pain, numbness, or tingling down the back of the leg or weakness in the leg) occur, you should be re-examined. Further testing may be necessary. ICE PACKS: Apply ice packs frequently against the painful area. Many different schedules are recommended, such as "20 minutes on, 20 minutes off" or "one hour ice, two hours rest." If you need to work, you may need to go longer between ice treatments. You should plan to have the area ice packed AT LEAST one fourth of the time. The ice should be applied over the wrap, tape, or splint, or over a layer of cloth -- not directly against the skin. Some ice bags have a built-in cloth and can be put directly on the skin. WARM PACKS: After approximately two days, apply gentle heat (such as a heating pad or hot water bottle) for about 20 to 30 minutes about every two hours -- at least four times daily. Warmth and elevation will help you make a more rapid recovery, and will ease the pain considerably. Do not use HOT heat, and never apply heat for longer than 30 minutes. The continuous heat can invisibly damage skin and muscles -- even when no burn is seen on the surface. Damaged muscles can make you MORE sore. Toradol Injection You have been given an injection of ketorolac tromethamine (Toradol). This is an excellent, safe drug for pain control. It also has potent antiinflammatory action. You should have significant pain relief within about one hour. Toradol is not addicting and is non-sedating. It does not interfere with driving or work. Call or return if you develop itching, hives, shortness of breath, or rash. STEROID MEDICATION: You have been given an injection of medicine of the cortisone/steroid class. This medication is used to control inflammation or allergy. It is often continued as a pill for a short period of time, until the acute process subsides. There are usually no side effects from short-term use of cortisone-like medications. Some persons feel an increased sense of well-being and are not sleepy at bedtime. Long-term use of cortisone medications is best avoided, unless required for a severe condition. If your condition does not remit, or relapses after the course of corticosteroid medication, you should consult your physician. Stretching Exercises for the Back The physician has recommended that you begin stretching exercises for your back. These are often used even while the back is painful. However, you should notify the physician if the activities seem to increase your pain. PELVIC TILT: Lie flat on your back with knees bent. Tighten your stomach and buttock muscles so it flattens your lower back against the floor. Hold 10 seconds. Repeat 10 times, twice daily. KNEE RAISE: Lying on the back with knees bent, raise one knee to your chest, then the other. Hold both knees against the chest 10 seconds, then lower one knee at a time. Repeat 10 times, twice daily. PARTIAL TRUNK RAISE: Lie face down, arms at your sides. Keeping your waist on the floor, use your arms raise your chest up. Support yourself on your elbows for 30 seconds. Repeat twice daily, increasing the time to two minutes as you recover. FOLLOW-UP CARE: If you have been referred to a physician for follow-up care, call the physicians office for an appointment as you were instructed or within the next two days. If you experience worsening or a significant change in your symptoms, notify the physician immediately or return to the Emergency Department at any time for re-evaluation. Forms: Elevated Blood Pressure Referrals: MERVAT MICHELE MD [ACTIVE STAFF] - Follow up in 3-5 days ANA SANTOS MD [ASSOCIATE] - Follow up as needed
--- NOTE | 2019-06-16 09:22 | RADIOLOGY REPORT (SQ) ---
EXAM DESCRIPTION: HIP RIGHT AP/LATERAL COMPLETED DATE/TIME: 06/16/2019 9:04 am REASON FOR STUDY: posteri hip pain with weight bearing ambulation COMPARISON: None. NUMBER OF VIEWS: Two views. TECHNIQUE: AP pelvis and additional frog-leg view of the right hip. LIMITATIONS: None. FINDINGS: MINERALIZATION: Normal. RIGHT HIP: No fracture or dislocation. No worrisome bone lesions. Joint space well-maintained. LEFT HIP: No fracture or dislocation. No worrisome bone lesions. Joint space well maintained. PUBIS AND ISCHIUM: No fracture. Mild degenerative change. SACRUM: No fracture or dislocation. No worrisome bone lesions. LOWER LUMBAR SPINE: No fracture or dislocation. No worrisome bone lesions. No significant disc disea se. SOFT TISSUES: Evidence of prior gonadal vein embolization. Surgical clips overlie the midline pelvis and scrotum. OTHER: No other significant finding. IMPRESSION: NEGATIVE STUDY OF THE RIGHT HIP. NO RADIOGRAPHIC EVIDENCE OF ACUTE INJURY. TECHNICAL DOCUMENTATION: JOB ID: [id number] 2010 [employer]- All Rights Reserved Reading location - IP/workstation name: [email or web address]
[2019-06-16] MEDS ORDERED: DEXAMETHASONE SOD PHOS INJ 10 MG/1 ML VIAL IM ONE (09:55)
[2019-06-16] MEDS ORDERED: KETOROLAC TROMETHAMINE INJ/PF 30 MG/1 ML SDV IM ONE (09:55)
== END 2019-06-16 10:13 | disposition home or self-care (01) ==
LOC: ER 08:11
DX: M54.41 Lumbago with sciatica, right side (principal); I10 Essential (primary) hypertension; Z87.891 Personal history of nicotine dependence; Z88.1 Allergy status to other antibiotic agents
CPT/HCPCS: 99283; 96372; 73502; J1885; J1100

== ENCOUNTER → 2019-06-18 | Outpatient (CLI) | payer MEDICARE, OTHER ==
[2019-06-20 13:10] LABS: TESTOSTERONE FREE (DIRECT) 5.8 pg/mL (7.2-24.0)
== END ==
LOC: OD 08:12
PROVIDERS: ATTEND Family Medicine
DX: E34.9 Endocrine disorder, unspecified (principal)
CPT/HCPCS: 36415; 84402; 84403

== ENCOUNTER → 2019-11-16 | Outpatient (CLI) | payer MEDICARE ==
--- NOTE | 2019-11-17 16:48 | RADIOLOGY REPORT (SQ) ---
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 Melanoma on the back diagnosed in 2012, completed immunotherapy in 2019. COMPARISON: 05/18/2019. 11/22/2018. RADIONUCLIDE AND DOSE: 9.15 mCi F18 FDG The route of agent administration: Intravenous FASTING BLOOD SUGAR: 99 mg/dl CONTRAST TYPE AND DOSE: No CT contrast given. TECHNIQUE: Blood glucose level was verified. Above dose of FDG was injected intravenously. 2-D seg mented attenuation correction images were obtained from the base of the skull to the midthighs. Nonc ontrast CT images were obtained for attenuation correction and fusion with emission images. CT image s were performed without oral or intravenous contrast and are not sensitive for parenchymal lesions. A series of overlapping emission PET images were obtained. Images reviewed and manipulated at [facility] work station by the radiologist. Images stored on PACS. LIMITATIONS: None. FINDINGS: HEAD AND NECK: No areas of abnormal metabolic activity in the soft tissues of the head and neck. CHEST: No areas of abnormal metabolic activity in the chest. ABDOMEN AND PELVIS: No areas of abnormal metabolic activity in the abdomen or pelvis. Expected physi ologic activity is present in the genitourinary system and bowel. Background hepatic activity is a C VA 3.2 PROXIMAL LOWER EXTREMITIES: No areas of abnormal metabolic activity in the soft tissues of the lower extremities. BONES: No abnormal metabolic activity in the visualized skeleton. ADDITIONAL CT FINDINGS: Anterior cervical fixation unchanged. A few scattered calcified granulomas i n the lungs. No pulmonary nodules. Left PICC with tip in the SVC unchanged. Post cholecystectomy. Calcified granulomas in the spleen. Coils in the pelvic vasculature, stable. Surgical anastomosis in the rectum, unchanged and patent. No bowel obstruction. Scattered colonic diverticulosis without evidence of diverticulitis. OTHER: No other significant findings. IMPRESSION: No evidence of recurrent or metastatic disease. TECHNICAL DOCUMENTATION: JOB ID: [id number] [employer]- All Rights Reserved Reading location - IP/workstation name: [email or web address]
== END ==
LOC: RAD 09:31
PROVIDERS: ATTEND Internal Medicine
DX: C43.59 Malignant melanoma of other part of trunk (principal)
CPT/HCPCS: 78815; A9552

== ENCOUNTER 2020-01-31 11:50 | Emergency (ER) | payer MEDICARE, OTHER ==
--- NOTE | 2020-01-31 12:08 | ER Document Report ---
HPI - HPI Patient complains to provider of: Left knee pain Time Seen by Provider: 01/31/20 11:59 Pain Level: 1 Notes: 59-year-old male to the emergency department with complaints of several days of left knee pain that is now radiating up into his thigh. He states he took some Motrin but continues to have a lot of pain. He states he has more pain when he standing. He does not did endorse any sort of blunt trauma, falls. He states that his calf has not been painful or the posterior knee or posterior thigh. Denies any swelling. He denies any skin changes. He states that he has had an arthroscopy twice on this knee. He has never had a clot in his leg. He is in remission from melanoma for 5 years. He recently had a negative PET scan. Denies any shortness of breath or chest pain. Patient does take Coumadin 1 mg daily. He has a port in his left upper extremity and this is to prevent it from clotting. He states it was checked 2 weeks ago and it was doing well. He is not sure what his INR was - ROS Systems Reviewed and Negative: Yes All other systems reviewed and negative - CONSTITUTIONAL Constitutional: DENIES: Fever, Chills - EENT EENT: DENIES: Sore Throat, Ear Pain, Congestion - NEURO Neurology: DENIES: Headache, Weakness - CARDIOVASCULAR Cardiovascular: DENIES: Chest pain - RESPIRATORY Respiratory: DENIES: Trouble Breathing, Coughing - GASTROINTESTINAL Gastrointestinal: DENIES: Abdominal Pain, Nausea, Patient vomiting, Diarrhea - MUSCULOSKELETAL Musculoskeletal: REPORTS: Extremity pain - left knee pain - DERM Skin Color: Normal Skin Problems: None Past Medical History - General Information source: Patient, Relative - Social History Smoking Status: Never Smoker Frequency of alcohol use: None Drug Abuse: None Family History: Reviewed & Not Pertinent, Arthritis, Hypertension - Past Medical History Cardiac Medical History: Reports: Hx Hypertension Pulmonary Medical History: Reports: Hx Pneumonia - CHILD Renal/ Medical History: Reports: Hx Epididymitis, Hx Kidney Stones GI Medical History: Reports: Hx Diverticulitis, Hx Gastroesophageal Reflux Disease, Hx Colonoscopy Musculoskeletal Medical History: Reports Hx Arthritis, Reports Hx Musculoskeletal Deformity, Reports Hx Musculoskeletal Trauma Psychiatric Medical History: Reports: Hx Anxiety, Hx Depression Traumatic Medical History: Reports: Hx Fractures, Hx Traumatic Brain Injury Past Surgical History: Reports: Hx Adenoidectomy, Hx Bowel Surgery, Hx Cholecystectomy, Hx Neurologic Surgery - Neck 2, Hx Oral Surgery - Dental surgery, Hx Orthopedic Surgery - shoulder, knee, carpal tunnel, Hx Testicular Surgery - Wire for varicoceles, Hx Tonsillectomy, Other - Removed melanoma tumors from back and lymph nodes, ventral hernia repair an - Immunizations Hx Diphtheria, Pertussis, Tetanus Vaccination: Yes - unknown Vertical Provider Document - CONSTITUTIONAL Agree With Documented VS: Yes Exam Limitations: No Limitations General Appearance: WD/WN, No Apparent Distress - INFECTION CONTROL TRAVEL OUTSIDE OF THE [place] IN LAST 30 DAYS: No - HEENT HEENT: Atraumatic, Normocephalic, PERRLA - NECK Neck: Normal Inspection, Supple - RESPIRATORY Respiratory: Breath Sounds Normal, No Respiratory Distress. negative: Rales, Rhonchi, Wheezing - CARDIOVASCULAR Cardiovascular: Regular Rate, Regular Rhythm, No Murmur - GI/ABDOMEN Gastrointestinal: Abdomen Soft, Abdomen Non-Tender, No Organomegaly - BACK Back: Normal Inspection - MUSCULOSKELETAL/EXTREMETIES Notes: There is tenderness to palpation to the superior aspect of the left knee and then to the anterior left thigh. There is no edema, pain out of proportion to exam, deformity, or high riding patella. Patient can stand on the knee with pain. He has no pain to the back of the thigh, back of the knee, back of the calf. There is no palpable cords. The knee is not red or hot to touch - NEURO Level of Consciousness: Awake, Alert, Appropriate Motor/Sensory: No Motor Deficit, No Sensory Deficit - DERM Integumentary: Warm, Dry, No Rash Course - Re-evaluation Re-evalutation: 01/31/20 15:14 Attempted discharge for patient after x-rays returned and voiced further concern for possible DVT. Although patient's presentation is not consistent with DVT presentations, did obtain the Doppler. It was negative. We will have the patient follow-up outpatient with orthopedist. He agrees with the plan. Impression: Left knee pain, left thigh pain. DVT was negative and x-rays were reassuring. We will have the patient follow-up with orthopedist. Will send home with Medrol Dosepak and a small amount of pain medicine. Patient agrees - Vital Signs Vital signs: Temp Pulse Resp BP Pulse Ox 97.3 F 64 18 143/88 H 99 01/31/20 11:55 01/31/20 11:55 01/31/20 11:55 01/31/20 11:55 01/31/20 11:55 - Diagnostic Test Radiology reviewed: Image reviewed, Reports reviewed Discharge - Discharge Clinical Impression: Left thigh pain Left knee pain Qualifiers: Chronicity: acute Qualified Code(s): M25.562 - Pain in left knee Condition: Stable Disposition: HOME, SELF-CARE Instructions: Ice & Elevation ([facility]) Additional Instructions: Follow-up with orthopedist without fail. Today your x-rays did not show any bony abnormalities. Femur and the knee both look good. You did not have a clot in your leg on ultrasound today. Please use the pain medicine as prescribed. You may also use Motrin with it. Elevate and ice the knee and thigh. Return if worsening symptoms. Prescriptions: Methylprednisolone [Medrol Dosepack (4 mg/Tab) 21 Tab/Dosepak] 4 mg PO ASDIR PRN #21 tab.ds.pk PRN Reason: Hydrocodone/Acetaminophen [[place] 5-325 mg Tablet] 1 tab PO Q6H #10 tablet Referrals: MARKUS CLARK DO [ACTIVE STAFF] - Follow up in 3-5 days (for orthopedic follow up)
--- NOTE | 2020-01-31 13:23 | RADIOLOGY REPORT (SQ) ---
EXAM DESCRIPTION: FEMUR LEFT IMAGES COMPLETED DATE/TIME: 01/31/2020 1:10 pm REASON FOR STUDY: knee and thigh pain COMPARISON: None. NUMBER OF VIEWS: Two views. TECHNIQUE: Two radiographic images acquired of the left femur to include hip and knee in at least on e projection. LIMITATIONS: None. FINDINGS: MINERALIZATION: Normal. BONES: No acute fracture. No worrisome bone lesions. SOFT TISSUES: No obvious swelling or foreign body. OTHER: No other significant finding. IMPRESSION: NEGATIVE STUDY OF THE LEFT FEMUR. NO RADIOGRAPHIC EVIDENCE OF ACUTE INJURY. TECHNICAL DOCUMENTATION: JOB ID: [id number] 2010 [employer]- All Rights Reserved Reading location - IP/workstation name: [email or web address]
--- NOTE | 2020-01-31 13:24 | RADIOLOGY REPORT (SQ) ---
EXAM DESCRIPTION: KNEE LEFT 4 VIEW IMAGES COMPLETED DATE/TIME: 01/31/2020 1:10 pm REASON FOR STUDY: knee and thigh pain COMPARISON: None. NUMBER OF VIEWS: Four views. TECHNIQUE: AP, lateral, and both oblique radiographic images acquired of the left knee. LIMITATIONS: None. FINDINGS: MINERALIZATION: Normal. BONES: No acute fracture or dislocation. No worrisome bone lesions. JOINT: No effusion. SOFT TISSUES: No soft tissue swelling. No radio-opaque foreign body. OTHER: No other significant finding. IMPRESSION: NEGATIVE STUDY OF THE LEFT KNEE. NO RADIOGRAPHIC EVIDENCE OF ACUTE INJURY. TECHNICAL DOCUMENTATION: JOB ID: [id number] 2010 [employer]- All Rights Reserved Reading location - IP/workstation name: [email or web address]
[2020-01-31 15:54] VITALS: BP 139/78
--- NOTE | 2020-01-31 16:11 | RADIOLOGY REPORT (SQ) ---
EXAM DESCRIPTION: VENOUS UNILATERAL LOWER IMAGES COMPLETED DATE/TIME: 01/31/2020 3:53 pm REASON FOR STUDY: left knee/thigh pain COMPARISON: None. TECHNIQUE: Dynamic and static troy scale and color images acquired of the left leg venous system. Se lected spectral images acquired with additional compression and augmentation maneuvers. The contralat eral common femoral vein and saphenofemoral junction were also imaged. Images stored on PACS. LIMITATIONS: None. FINDINGS: COMMON FEMORAL: Normal phasicity, compression and augmentation. No visualized echogenic ma terial on troy scale. No defects on color images. FEMORAL: Normal compression and augmentation. No visualized echogenic material on troy scale. No defe cts on color images. POPLITEAL: Normal compression, augmentation. No visualized echogenic material on troy scale. No defec ts on color images. CALF VESSELS: Normal compression, augmentation. No visualized echogenic material on troy scale. No de fects on color images. GSV and SSV: Normal compression, augmentation. No visualized echogenic material on troy scale. No def ects on color images. ANY DEEP VENOUS INSUFFICIENCY: Not evaluated. ANY EVIDENCE OF POPLITEAL CYST: No. OTHER: No other significant finding. CONTRALATERAL COMMON FEMORAL VEIN AND SAPHENOFEMORAL JUNCTION: Normal phasicity, compression and augmentation. No visualized echogenic material on troy scale. No de fects on color images. IMPRESSION: NO EVIDENCE OF DVT OR SVT IN THE LEFT LEG. TECHNICAL DOCUMENTATION: JOB ID: [id number] 2010 [employer]- All Rights Reserved Reading location - IP/workstation name: [email or web address]
== END 2020-01-31 15:21 | disposition home or self-care (01) ==
LOC: ER 11:50
DX: M25.562 Pain in left knee (principal); M79.652 Pain in left thigh; I10 Essential (primary) hypertension; Z79.01 Long term (current) use of anticoagulants; Z85.820 Personal history of malignant melanoma of skin
CPT/HCPCS: 93971; 99284

== ENCOUNTER → 2020-03-01 | Outpatient (CLI) | payer MEDICARE, OTHER ==
[2020-03-01 08:25] LABS: APPEARANCE,URINE CLEAR; BILIRUBIN,URINE NEGATIVE (NEGATIVE); COLOR,URINE YELLOW; GLUCOSE, URINE NEGATIVE (NEGATIVE); KETONES,URINE NEGATIVE (NEGATIVE); LEUKOCYTE ESTERASE,URINE NEGATIVE (NEGATIVE); NITRITE,URINE NEGATIVE (NEGATIVE); PROTEIN,URINE NEGATIVE (NEGATIVE); URINE SPECIFIC GRAVITY 1.009; UROBILINOGEN,URINE NEGATIVE mg/dL (<2.0)
[2020-03-01 08:46] LABS: ALBUMIN 4.6 g/dL (3.5-5.0); ALKALINE PHOSPHATASE 47 U/L (38-126); ANION GAP 7 (5-19); ASPARTATE AMINO TRANSFERASE 24 U/L (17-59); BILIRUBIN,DIRECT 0.1 mg/dL (0.0-0.4); BILIRUBIN,TOTAL 0.8 mg/dL (0.2-1.3); BLOOD UREA NITROGEN 19 mg/dL (7-20); CALCIUM 9.9 mg/dL (8.4-10.2); CARBON DIOXIDE 31 mmol/L (22-30); CHLORIDE 100 mmol/L (98-107); CHOLESTEROL 143.31 mg/dL (0-200); GLUCOSE 98 mg/dL (75-110); POTASSIUM 5.1 mmol/L (3.6-5.0); TOTAL PROTEIN 7.6 g/dL (6.3-8.2); TRIGLYCERIDES 143 mg/dL (<150)
[2020-03-01 08:57] LABS: DIRECT LDL 69 mg/dL (<100)
== END ==
LOC: OD 07:05
PROVIDERS: ATTEND Family Medicine
DX: I10 Essential (primary) hypertension (principal); Z13.1 Encounter for screening for diabetes mellitus; Z12.5 Encounter for screening for malignant neoplasm of prostate; Z13.220 Encounter for screening for lipoid disorders
CPT/HCPCS: 36415; 80053; 81001; 80061; G0103

== ENCOUNTER → 2020-03-01 | Outpatient (CLI) | payer MEDICARE, OTHER ==
--- NOTE | 2020-03-01 17:04 | RADIOLOGY REPORT (SQ) ---
EXAM DESCRIPTION: U/S EXTREMITY NONVASCULAR LTD IMAGES COMPLETED DATE/TIME: 03/01/2020 4:27 pm REASON FOR STUDY: (M79.622)PAIN IN LEFT UPPER ARM M79.622 PAIN IN LEFT UPPER ARM COMPARISON: None. TECHNIQUE: Dynamic and static grayscale images acquired of the localized site of clinical concern an d recorded on PACS. Additional selected color Doppler and spectral images recorded. SITE OF CONCERN: Left axilla LIMITATIONS: None. FINDINGS: Sonographic imaging in the left axilla shows some small normal-appearing lymph nodes. The largest measures 11 x 5 x 3 mm. IMPRESSION: There are some small normal appearing lymph nodes in the left axilla. No other signific ant finding. TECHNICAL DOCUMENTATION: JOB ID: [id number] 2010 [employer]- All Rights Reserved Reading location - IP/workstation name: [email or web address]
--- NOTE | 2020-03-01 17:36 | RADIOLOGY REPORT (SQ) ---
EXAM DESCRIPTION: CERV SP 4 OR 5 VIEWS IMAGES COMPLETED DATE/TIME: 03/01/2020 4:58 pm REASON FOR STUDY: (M54.2)CERVICALGIA M79.622 PAIN IN LEFT UPPER ARM M54.2 CERVICALGIA COMPARISON: None. NUMBER OF VIEWS: Five views. TECHNIQUE: AP, lateral, obliques and odontoid radiographic images acquired of the cervical spine. LIMITATIONS: None. FINDINGS: MINERALIZATION: Normal. ALIGNMENT: Anatomic. VERTEBRAE: Vertebral bodies of normal height. DISCS: No significant osteophytes or sclerosis. Disc height maintained. FORAMINA: No osteophytes or foraminal narrowing. LATERAL AND POSTERIOR ELEMENTS: Facets, lateral masses and spinous processes without significant find ings. HARDWARE: Anterior plate from C5-C7 with disc implant at C5-6. SOFT TISSUES: No masses or calcifications. Lung apices clear. OTHER: No other significant finding. IMPRESSION: Surgical changes. No acute finding. No significant foraminal narrowing. TECHNICAL DOCUMENTATION: JOB ID: [id number] 2010 [employer]- All Rights Reserved Reading location - IP/workstation name: [email or web address]
== END ==
LOC: RAD 16:00
PROVIDERS: ATTEND Family Medicine
DX: M79.622 Pain in left upper arm (principal); M54.2 Cervicalgia
CPT/HCPCS: 72050; 76882

== ENCOUNTER → 2020-03-17 | Outpatient (CLI) | payer MEDICARE, OTHER ==
--- NOTE | 2020-03-19 13:45 | RADIOLOGY REPORT (SQ) ---
EXAM DESCRIPTION: MRI LT UPPER JOINT WITHOUT IMAGES COMPLETED DATE/TIME: 03/17/2020 8:14 am REASON FOR STUDY: PAIN IN LEFT SHOULDER M25.512 PAIN IN LEFT SHOULDER COMPARISON: None. TECHNIQUE: Left shoulder images acquired and stored on PACS. Multiplanar imaging to include fat sens itive sequences such as T1, water sensitive sequences such as FST2/STIR, cartilage sensitive sequence s such as FSPD/gradient-echo sequences. LIMITATIONS: None. FINDINGS: BONE MARROW AND CORTEX: No worrisome bone lesions or marrow replacement. No occult fractur es. JOINT OR BURSAL EFFUSION: No significant joint or bursal fluid. No suggestion of loose bodies. GLENO-HUMERAL ARTICULATION: Normal articulation. No subluxation. No cystic change. No osteophytes or cartilage loss. ACROMION AND AC JOINT: Postoperative widening status post subacromial decompression. No suggestion of significant subacromial compromise. Regional postoperative blooming artifact in the adjacent sof t tissues. ROTATOR CUFF AND INTERVAL: Mild tendinosis without suggestion of significant tear. Minimal fatty atr ophy in the supraspinatus and infraspinatus muscles. No rotator interval tear. No rotator interval thickening to suggest adhesive capsulitis. LABRUM AND BICEPS LABRAL COMPLEX: Intact. No labral tear. Intra-articular long-head biceps tendon n ormal. Distal biceps in normal location in bicipital groove. REMAINDER OF LABRUM AND IGHL : No gross tear or paralabral cyst formation. Labral evaluation is less than optimal without joint distention. No thickening of IGHL to suggest adhesive capsulitis. PERIARTICULAR AND ADJACENT SOFT TISSUES: No masses or abnormal nodes. OTHER: No other significant finding. IMPRESSION: 1. Postoperative changes. Beyond mild tendinosis and slight fatty atrophy in the cuff, normal study. TECHNICAL DOCUMENTATION: JOB ID: [id number] 2010 [employer]- All Rights Reserved Reading location - IP/workstation name: [email or web address]
== END ==
LOC: RAD 07:32
PROVIDERS: ATTEND Orthopaedic Surgery
DX: M75.82 Other shoulder lesions, left shoulder (principal); M25.512 Pain in left shoulder

== ENCOUNTER → 2020-04-25 | Outpatient (CLI) | payer MEDICARE, OTHER ==
--- NOTE | 2020-04-26 13:25 | RADIOLOGY REPORT (SQ) ---
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 TECHNIQUE: Blood glucose level was verified. Above dose of FDG was injected intravenously. 2-D seg mented attenuation correction images were obtained through the entire body. Noncontrast CT images we re obtained for attenuation correction and fusion with emission images. CT images were performed wit hout oral or intravenous contrast and are not sensitive for parenchymal lesions. A series of overlap ping emission PET images were obtained. Images reviewed and manipulated at independent work station by the radiologist. Images stored on PACS. LIMITATIONS: None. FINDINGS: HEAD AND NECK: No areas of abnormal metabolic activity in the soft tissues of the head and neck. CHEST: No areas of abnormal metabolic activity in the chest. ABDOMEN AND PELVIS: No areas of abnormal metabolic activity in the abdomen or pelvis. Expected physi ologic activity is present in the genitourinary system and bowel. LOWER EXTREMITIES: No areas of abnormal metabolic activity in the soft tissues of the lower extremiti es. BONES: No abnormal metabolic activity in the visualized skeleton. ADDITIONAL CT FINDINGS: No additional significant findings on the noncontrast CT images. OTHER: Nothing acute or changed. IMPRESSION: No evidence of recurrent melanoma. TECHNICAL DOCUMENTATION: JOB ID: [id number] [employer]- All Rights Reserved Reading location - IP/workstation name: [email or web address]
== END ==
LOC: RAD 09:20
PROVIDERS: ATTEND Internal Medicine
DX: C43.59 Malignant melanoma of other part of trunk (principal)
CPT/HCPCS: 78816; A9552